=== PATIENT | male | born 1955 | race Caucasian/White ===

== ENCOUNTER 2017-05-22 11:08 | Day surgery (SDC) | payer OTHER, SELFPAY | END 2017-05-22 12:16 | disposition home or self-care (01) | PROVIDERS: Family Provider Family Medicine; Visit Provider Nurse Anesthetist, Certified Registered | DX: M51.16 Intervertebral disc disorders with radiculopathy, lumbar region (principal); M47.896 Other spondylosis, lumbar region | CPT/HCPCS: 62323; J1040 ==

== ENCOUNTER → 2017-06-25 15:45 | Outpatient (POV) | payer OTHER, SELFPAY | PROVIDERS: Family Provider Family Medicine; PCP Family Medicine; Visit Provider Dermatology | DX: Z00.00 Encounter for general adult medical examination without abnormal findings (principal) ==

== ENCOUNTER → 2018-02-23 15:40 | Outpatient (POV) | payer OTHER, SELFPAY | PROVIDERS: Family Provider Family Medicine; PCP Family Medicine; Visit Provider Dermatology | DX: Z00.00 Encounter for general adult medical examination without abnormal findings (principal) ==

== ENCOUNTER → 2018-03-23 15:28 | Outpatient (POV) | payer OTHER, SELFPAY | PROVIDERS: Visit Provider Dermatology | DX: Z00.00 Encounter for general adult medical examination without abnormal findings (principal) ==

== ENCOUNTER → 2018-05-11 15:15 | Outpatient (POV) | payer OTHER, SELFPAY | PROVIDERS: Visit Provider Dermatology | DX: Z00.00 Encounter for general adult medical examination without abnormal findings (principal) ==

== ENCOUNTER → 2018-09-07 15:36 | Outpatient (POV) | payer OTHER, SELFPAY | PROVIDERS: Visit Provider Dermatology | DX: Z00.00 Encounter for general adult medical examination without abnormal findings (principal) ==

== ENCOUNTER → 2019-05-09 15:38 | Outpatient (CLI) | payer BC, SELFPAY ==
--- NOTE | 2019-05-09 15:43 | XR_ITS ---
PROCEDURE: XR FOOT WT BEARING RT 3V CLINICAL INDICATION: pain COMPARISON: FTR3 FOOT-RT-3 VIEWS from 08/22/2013 FTL3 FOOT-LT-3 VIEWS from 10/05/2015 FINDINGS: There are severe osteoarthritic changes of the 1st metatarsophalangeal joint with loss of joint space, osteophyte formation, and osteosclerosis. Prominent bony hypertrophy is present . no lytic or blastic change. Other findings:None. IMPRESSION: Severe osteoarthritis with bony hypertrophy 1st metatarsophalangeal joint. These findings are slightly worse compared to 08/22/2013 Dictated by: Remy Valiente MD 05/09/2019 16:52 Electronically signed by Remy Valiente MD in [place] 05/09/2019 16:52
--- NOTE | 2019-05-09 15:43 | XR_ITS ---
PROCEDURE: XR FOOT WT BEARING LT 3V CLINICAL INDICATION: pain COMPARISON: FTR3 FOOT-RT-3 VIEWS from 08/22/2013 FTL3 FOOT-LT-3 VIEWS from 10/05/2015 FINDINGS: No fracture or dislocation. No lytic or blastic change. There is normal mineralization. Mild osteoarthritic changes are present at the 1st metatarsophalangeal joint with bony hypertrophy. There is a small defect in the distal and medial aspect at the head of the 1st metatarsal proximal and medial aspect of the proximal phalanx of the great toe similar to the previous exam possibly due to sequela from gout. No other significant anomalies are evident. Other findings:None. IMPRESSION: Osteoarthritis 1st MTP joint with defects at the distal aspect of the 1st metatarsal in the proximal aspect of the proximal phalanx of the great toe which could be due to gout. Overall not significantly changed Dictated by: Remy Valiente MD 05/09/2019 16:54 Electronically signed by Remy Valiente MD in [place] 05/09/2019 16:54
== END ==
PROVIDERS: PCP Family Medicine; Visit Provider Podiatrist
DX: M79.672 Pain in left foot (principal); M79.671 Pain in right foot
CPT/HCPCS: 73630

== ENCOUNTER → 2019-05-23 09:53 | Outpatient (POV) | payer BC, SELFPAY ==
--- NOTE | 2019-05-23 10:34 | HMH.PAINSOAP ---
[facility] Pain Management SOAP Note Subjective:: Patient is a pleasant 63-year-old white male who presents today for complaints of low back pain with radiation into his right leg. Patient says that he has been treated in our clinic in the past for low back pain with lumbar radicular symptoms. He says he did undergo a her epidural steroid injection for which he got immediate relief 100%. He does say that he recently had increased pain in his low back with radiation into his right leg. Patient says it was new onset causing severe pain to the point that he had to go to the emergency room. He says he was given 2 different injections for which he did not get any relief, but instead, became dizzy and lightheaded. Patient says that he was also given muscle relaxers which were not helping in his pain. He rates his pain a 10 out of 10 today. He is very tearful. Patient says that he takes gabapentin 100 mg 1 tablet p.o. 3 times daily. He says he has been taking the medication together in the a.m. He says it is giving him about 30% relief. He says he feels like the pain is causing him to have numbness and tingling in his right leg. He did undergo a CT scan in the emergency room for which he was told that he has a pinched nerve in the low back . He is also taking Macrobid and Levaquin at this time for a urinary tract infection. He self caths and has chronic renal insufficiency. Patient is unable to take anti-inflammatories due to his renal function. His GFR is less than 60%. He does continue with a home stretching program. Review of Systems General: No recent weight changes, no fever, no sleep disturbances Respiratory: No cough, no shortness of air, no recurring pulmonary infections Cardiovascular/peripheral vascular: No chest pain, no palpitations, no edema, no shortness of breath Gastrointestinal: No new onset incontinence, normal bowel movements reported Genitourinary: No new onset incontinence Musculoskeletal: Low back pain, right leg pain Psychiatric: Normal mood/affect Neurological: [Denies weakness in extremities], [denies balance issues] Objective:: Physical exam General: Alert and oriented x3, no acute distress, pleasant and cooperative, [on room air] Lungs: Respirations even and unlabored, symmetrical chest expansion Eyes: PERRL Musculoskeletal: Flexion and extension of lumbar spine somewhat guarded secondary to pain, deep tendon reflexes normal, strength in upper and lower extremities [5/5], [abnormal gait noted] Neurological: Speech clear, 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 We will order the patient gabapentin 300 mg 1 tablet p.o. twice daily. We will also order the patient a month of tramadol 50 mg 1 tablet p.o. twice daily. Patient says he has not had any type of MRI of his low spine. We will schedule him for an MRI of the lumbar spine and see him back to discuss the plan of care. He will continue with a home stretching program, ice and heat therapies, and his oral medications. Patient has been instructed to contact the clinic if he has any concerns before his next appointment. Dr. Santana has reviewed this note and agrees with this plan of care. This note was dictated using voice recognition software and make contain errors or omissions. Patient has been prescribed a controlled substance after being counseled on the medication, medication safety, and possible side effects. TAMIR report has been obtained and reviewed prior to prescription and found to be appropriate. Opioid contract was reviewed and signed by the patient, and that they have agreed to all of the terms set forth by our compliance program. [facility] History I have reviewed
[2019-05-23 11:01] VITALS: BP 151/98; PULSE 88; RESP 18; O2SAT 99; BMI 27.1
== END ==
PROVIDERS: PCP Family Medicine; Visit Provider Clinical Nurse Specialist Family Health
DX: M51.16 Intervertebral disc disorders with radiculopathy, lumbar region (principal); M47.816 Spondylosis without myelopathy or radiculopathy, lumbar region
CPT/HCPCS: 99212

== ENCOUNTER → 2019-05-30 12:52 | Outpatient (POV) | payer BC, SELFPAY ==
--- NOTE | 2019-05-30 13:16 | P.CONS_ITS ---
[facility] Pain Management SOAP Note Subjective:: Patient is a pleasant 63-year-old white male who presents today for follow-up after he was started on some medications last week. Patient is in extreme discomfort. He has low back pain with right leg involvement. Patient was on antibiotics at his last visit. Patient does have a CT scan showing possible nerve impingement at the L4-L5 L5-S1 levels on the right side. Patient and I discussed a plan of care. Patient is now off of his antibiotics. He is not on any anticoagulation therapy. Patient did not respond well to gabapentin. We will put him on prednisone 20 mg 1 p.o. twice daily and Lyrica 75 mg 1 p.o. twice daily. We will get a new MRI he may need a neurosurgical consultation. Patient rates his pain a 7 out of 10. Patient has radiation of his pain all the way to his toes. ROS General: no recent weight change, no fever, no sleep disturbances Respiratory: no cough, no shortness of air, no recurring pulmonary infections Cardiovascular/Peripheral Vascular: No chest pain, No palpitations, no edema, no shortness of breath. Gastrointestinal: no new onset incontinence, normal bowel movements reported Genitourinary: no new onset incontinence Musculoskeletal: Back pain, leg pain Psychiatric: normal mood/ affect Neurological: [denies new onset weakness in extremities], [denies new onset balance issues] Objective:: Physical Exam General: Alert and oriented x3, no acute distress, pleasant and cooperative, [on room air] Lungs: Resps E/U, Symmetrical chest expansion, Eyes: PERRL Musculoskeletal: Flexion and extension of lumbar spine somewhat guarded secondary to pain, deep tendon reflexes normal, strength in upper and lower extremities [5/5], [abnormal gait noted] Neurological: speech clear, 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 Plan:: I will put the patient on prednisone 20 mg 1 p.o. twice daily for 5 days we will also start on Lyrica 75 mg 1 p.o. twice daily. We will move forward with his MRI for potential neurosurgical consultation we will also set him up for right transforaminal epidural steroid injection to get him some relief. Patient's been instructed to call the office if he has any issues prior to his next appointment. He is now off antibiotics. Dr. Santana has reviewed this note and agrees with this plan of care. This note was dictated using voice recognition software and may contain errors or omissions [facility] History I have reviewed the patient's past medical history: Yes Medical History: Reports:: Hyperlipidemia, Hypertension, Renal Disease *Have you ever received a pneumonia vaccine?: Yes *Have you received a flu vaccine this season?: Yes Other Medical History: Reports: Arthritis Other Surgeries: Yes: Hernia Repair, Other - *Social History Smoking Status: Current every day smoker Alcohol Intake: never *Occupational Status:: other Housing: house *Travel in the last 8 weeks: None Family Hx:: No significant family history
[2019-05-30 13:50] VITALS: BP 125/91; PULSE 121; RESP 18; O2SAT 99; BMI 26.8
== END ==
PROVIDERS: PCP Family Medicine; Visit Provider Clinical Nurse Specialist Family Health
DX: M51.26 Other intervertebral disc displacement, lumbar region (principal); M51.36 Other intervertebral disc degeneration, lumbar region
CPT/HCPCS: 99212

== ENCOUNTER → 2019-06-06 07:47 | Outpatient (CLI) | payer BC, SELFPAY | PROVIDERS: PCP Family Medicine; Visit Provider Clinical Nurse Specialist Family Health | DX: M54.5 Low back pain (principal) ==

== ENCOUNTER 2019-08-16 09:00 | Outpatient (RCR) | payer BC, SELFPAY | END 2019-08-16 09:05 | disposition home or self-care (01) | LOC: PT 09:00 | PROVIDERS: PCP Family Medicine; Visit Provider Physician Assistant | DX: M51.26 Other intervertebral disc displacement, lumbar region (principal) | CPT/HCPCS: 97010; 97014; 97110; 97163; G0283 ==

== ENCOUNTER → 2020-07-13 10:39 | Outpatient (CLI) | payer BC, SELFPAY ==
[2020-07-13 10:44] LABS: Microscopic, Urine URINE MICROSCOPIC (MICROSCOPIC)
[2020-07-13 11:17] LABS: Creatinine,Urine Random 43 mg/dL (Not Estab.)
[2020-07-13 11:19] LABS: Basophils # 0.1 K/mm3 (0-0.2); Basophils % 0.6 % (0.1-2.0); Eosinophils # 0.2 K/mm3 (0.0-0.4); Eosinophils % 2.2 % (0.1-12.0); Lymphocytes # 1.5 K/mm3 (0.7-4.5); Lymphocytes % 16.4 % (10-50); Mean Corpuscular HGB Conc 33.4 g/dL (31.8-35.4); Mean Corpuscular Hemoglobin 31.8 pg (27.0-31.2); Mean Corpuscular Volume 95.2 fl (80-94); Mean Platelet Volume 7.7 fl (7.4-10.4); Monocytes # 0.5 K/mm3 (0.1-1.0); Monocytes % 5.6 % (1.7-9.3); Neutrophils # 7.1 K/mm3 (1.8-7.8); Neutrophils % 75.3 % (37.0-80.0); Platelet Count 161 K/mm3 (142-424); Red Blood Count 5.05 M/mm3 (4.60-6.20); Red Cell Distribution Width 13.5 % (11.5-17.5); White Blood Count 9.4 K/mm3 (4.8-10.8)
[2020-07-13 12:41] LABS: Appearance,Urine CLEAR (Clear); Bilirubin,Urine Negative (Negative); Blood, Urine Negative (Negative); Color,Urine STRAW (Yellow); Glucose,Urine (UA) Negative (Negative); Ketones,Urine Negative (Negative); Leukocyte Esterase,Urine Negative (Negative); Nitrate,Urine Negative (Negative); Protein,Urine Negative (Negative); Specific Gravity, Urine 1.015 (1.005-1.030); Urobilinogen,Urine 0.2 EU/dl (0.2)
[2020-07-13 13:35] LABS: Chloride 103 mmol/L (98-107)
[2020-07-13 13:36] LABS: Albumin Level 4.6 g/dl (3.5-5.0); Potassium 4.7 mmoL/L (3.5-5.1); Sodium 139 mmol/L (136-145)
[2020-07-13 13:38] LABS: Blood Urea Nitrogen 38 mg/dl (9-20); Estimated Glomerular Filt Rate 44 ml/min (>60); GFR (African American) 53 ML/MIN (>60)
[2020-07-13 13:39] LABS: Anion Gap 12.7 mEq/L (5-15); Calcium 10.4 mg/dl (8.4-10.2); Carbon Dioxide 28 mmol/L (22.0-30.0); Glucose 108 mg/dl (74-100); Phosphorous 4.3 mg/dl (2.5-4.5)
[2020-07-13 13:49] LABS: Intact Parathyroid Hormone 20.7 pg/mL (7.5-53.5)
[2020-07-13 13:54] LABS: 25-OH Vitamin D, Total 44.5 ng/mL (30-100)
[2020-07-13 14:13] LABS: Bacteria,Urine 1+ /lpf; RBC,Urine Occasional #/hpf (0-3); Squamous Epithelial Cell,Urine Occasional #/hpf (0-5)
== END ==
PROVIDERS: Visit Provider Internal Medicine Nephrology
DX: N18.30 Chronic kidney disease, stage 3 unspecified (principal)
CPT/HCPCS: 36415; 80069; 81001; 82306; 82570; 83970; 84155; 85025

== ENCOUNTER → 2020-07-31 15:54 | Outpatient (POV) | payer BC, SELFPAY | PROVIDERS: Visit Provider Dermatology | DX: Z00.00 Encounter for general adult medical examination without abnormal findings (principal) ==

== ENCOUNTER → 2021-05-22 10:14 | Outpatient (CLI) | payer BC, SELFPAY | PROVIDERS: PCP Family Medicine; Visit Provider Urology | DX: Z01.812 Encounter for preprocedural laboratory examination (principal); Z11.52 Encounter for screening for COVID-19; R97.20 Elevated prostate specific antigen [PSA] | CPT/HCPCS: C9803; U0003; U0005 ==

== ENCOUNTER 2021-05-24 07:19 | Day surgery (SDC) | payer BC, SELFPAY ==
[2021-05-21 10:31] VITALS: BMI 27.7
[2021-05-24 07:34] VITALS: BP 137/81; PULSE 79; RESP 18; TEMP 36.4; O2SAT 97
[2021-05-24 09:50] VITALS: BP 116/67; PULSE 75; RESP 16; TEMP 36.6; O2SAT 96
--- NOTE | 2021-05-24 09:53 | HMH.ANESCL ---
[facility] Anesthesia Checklist - Structural Data Admitted From: Home Planned Operative Procedure/s: prostate bx Consent for Planned Operative Procedure(s) Verified: Yes - Additional verifications Anesthesia Reactions: No Hx Blood Transfusions: No Blood Transfusion Reaction: No - Airway Assessment C-Spine Mobility Assessed: Yes TMJ Mobility Assessed: Yes Dentition: Edentulous - Neurological Assessment Level of Consciousness: Awake, Alert, Appropriate - Anesthesia Plan Anesthesia Risk discussed: Yes Anesthesia Plan: Verified ASA Class: II Anesthesia Type: MAC [facility] History I have reviewed the patient's past medical history: Yes Medical History: Reports:: Hyperlipidemia, Hypertension, Renal Disease Denies:: Cancer, Diabetes Mellitus Type 1, Diabetes Mellitus Type 2, Internal Pacemaker, MRSA, Seizures *Have you ever received a pneumonia vaccine?: No *Have you received a flu vaccine this season?: Yes Other Medical History: Reports: Arthritis. Denies: Blood Transfusion Reaction Anesthesia experience/problems:: none Other Surgeries: Yes: Hernia Repair, Other. No: Pacemaker Amputation: No - *Social History Smoking Status: Current every day smoker Alcohol Intake: current Alcohol Intake Frequency:: a few times a month Substance Use Type: denies use *Occupational Status:: employed Housing: house Household Members: spouse *Travel in the last 8 weeks: None Family Hx:: No significant family history
[2021-05-24 10:05] VITALS: BP 120/70; PULSE 76; RESP 16; O2SAT 95
[2021-05-24 10:20] VITALS: BP 142/77; PULSE 74; RESP 18; TEMP 36.4; O2SAT 96
--- NOTE | 2021-05-24 10:20 | P.OP_ITS ---
Date of procedure: 05/24/21 Pre-op Diagnosis:: Elevated PSA Post-op Diagnosis:: Elevated PSA Procedure performed:: Prostate biopsy with transrectal ultrasound guidance Surgeon:: Marco A Rahman MD [employer] OPERATOR:: Lui Shelton Anesthesia: MAC Estimated blood loss (mL): 0 Clinical Note:: Patient is a 65-year-old white male with history of neurogenic bladder who self caths 3 times a day was also found to have an elevated PSA. Recent PSA was 7.7. PSA a year ago was 6.4. Prostate examination is benign to digital rectal examination. Patient wishes to proceed with prostate biopsy to rule out prostate cancer. Operative findings:: Prostate gland was 53.7 cm? in size. There were hypoechoic lesions in the central zone bilaterally. 12 biopsies were taken including through the hypoechoic areas. Operative note:: Patient taken to the operating room after informed consent was obtained. On the stretcher he was placed into the left lateral decubitus position and monitored anesthesia care administered. After adequate analgesia the transrectal ultrasound probe was placed into the rectum and the prostate was easily visualized. The prostate was measured at 53.7 cm?. Ultrasound examination also revealed bilateral hypoechoic areas in the central zone. No hyperechoic areas or calcifications were noted. Local anesthetic was placed into each neurovascular bundle and 12 biopsies were then taken in a systematic fashion including through the hypoechoic areas. Probe removed and patient tolerated the procedure well. Was discharged to the recovery room in stable condition. Condition: stable Disposition: PACU Specimens:: Prostate biopsy x12 Complications:: None
--- NOTE | 2021-05-24 10:40 | SUR.OPER ---
0950- pt kept in PACU to discharge.
== END 2021-05-24 10:20 | disposition home or self-care (01) ==
LOC: OR 07:20
PROVIDERS: PCP Family Medicine; Visit Provider Urology
PROC: (CPT 55700; principal; 2021-05-24 09:00)
DX: R97.20 Elevated prostate specific antigen [PSA] (principal); E78.5 Hyperlipidemia, unspecified; I10 Essential (primary) hypertension; N31.9 Neuromuscular dysfunction of bladder, unspecified; N48.6 Induration penis plastica; M19.90 Unspecified osteoarthritis, unspecified site; Z72.0 Tobacco use; Z79.82 Long term (current) use of aspirin; Z79.899 Other long term (current) drug therapy
CPT/HCPCS: 55700; 76872

== ENCOUNTER → 2021-10-31 07:13 | Outpatient (CLI) | payer BC, SELFPAY ==
[2021-10-31 07:17] LABS: Microscopic, Urine URINE MICROSCOPIC (MICROSCOPIC)
[2021-10-31 08:04] LABS: Basophils # 0.1 K/mm3 (0-0.2); Basophils % 1.1 % (0.1-2.0); Eosinophils # 0.4 K/mm3 (0.0-0.4); Eosinophils % 5.6 % (0.1-12.0); Hematocrit 46.3 % (42.0-52.0); Hemoglobin 15.6 g/dL (14.1-18.0); Lymphocytes # 1.6 K/mm3 (0.7-4.5); Lymphocytes % 24.7 % (10-50); Mean Corpuscular HGB Conc 33.7 g/dL (31.8-35.4); Mean Corpuscular Hemoglobin 31.9 pg (27.0-31.2); Mean Corpuscular Volume 94.8 fl (80-94); Mean Platelet Volume 9.1 fl (7.4-10.4); Monocytes # 0.6 K/mm3 (0.1-1.0); Monocytes % 8.5 % (1.7-9.3); Neutrophils # 3.9 K/mm3 (1.8-7.8); Neutrophils % 60.2 % (37.0-80.0); Platelet Count 152 K/mm3 (142-424); Red Blood Count 4.89 M/mm3 (4.60-6.20); Red Cell Distribution Width 13.5 % (11.5-17.5); White Blood Count 6.4 K/mm3 (4.8-10.8)
[2021-10-31 09:38] LABS: Appearance,Urine CLEAR (Clear); Bilirubin,Urine Negative (Negative); Blood, Urine Negative (Negative); Color,Urine YELLOW (Yellow); Glucose,Urine (UA) Negative (Negative); Ketones,Urine Negative (Negative); Leukocyte Esterase,Urine Negative (Negative); Nitrate,Urine Negative (Negative); Protein,Urine Negative (Negative); Urobilinogen,Urine 0.2 EU/dl (0.2)
[2021-10-31 09:55] LABS: Bacteria,Urine Trace /lpf; Squamous Epithelial Cell,Urine Occasional #/hpf (0-5); WBC,Urine Occasional #/hpf (0-3)
[2021-10-31 10:02] LABS: Creatinine,Urine Random 33 mg/dL (Not Estab.)
[2021-10-31 10:16] LABS: Albumin Level 3.9 g/dl (3.5-5.0); Anion Gap 12.4 mEq/L (5-15); Blood Urea Nitrogen 27 mg/dl (9-20); Calcium 8.9 mg/dl (8.4-10.2); Carbon Dioxide 27 mmol/L (22.0-30.0); Chloride 106 mmol/L (98-107); Estimated Glomerular Filt Rate 56 ml/min (>60); GFR (African American) 67 ML/MIN (>60); Glucose 84 mg/dl (74-100); Phosphorous 3.7 mg/dl (2.5-4.5); Potassium 4.4 mmoL/L (3.5-5.1); Sodium 141 mmol/L (136-145)
[2021-10-31 10:26] LABS: Intact Parathyroid Hormone 68.9 pg/mL (7.5-53.5)
[2021-10-31 10:31] LABS: 25-OH Vitamin D, Total 47.9 ng/mL (30-100)
== END ==
PROVIDERS: PCP Family Medicine; Visit Provider Student in an Organized Health Care Education/Training Program
DX: N18.30 Chronic kidney disease, stage 3 unspecified (principal)
CPT/HCPCS: 36415; 80069; 81001; 82306; 82570; 83970; 84155; 85025

== ENCOUNTER → 2021-12-24 16:00 | Outpatient (POV) | payer BC, SELFPAY | PROVIDERS: Visit Provider Dermatology | DX: Z00.00 Encounter for general adult medical examination without abnormal findings (principal) ==

== ENCOUNTER → 2022-03-07 12:55 | Outpatient (CLI) | payer BC, SELFPAY ==
--- NOTE | 2022-03-07 13:00 | XR_ITS ---
FINAL REPORT CLINICAL HISTORY: R Foot pain..dropped something onto big toe yesterday COMPARISON: April 2019 FINDINGS: 3 views of the right foot were obtained. There is no acute fracture or dislocation. There is severe degenerative change of the 1st MTP joint, progressed from prior. There is a 14 mm loose body in this region. IMPRESSION: No acute fracture. Reviewed, Interpreted and Dictated by Camilo Mahmood III, MD Transcribed by Serafin Max Authenticated and [facility]
== END ==
PROVIDERS: PCP Family Medicine; Visit Provider Family Medicine
DX: M79.671 Pain in right foot (principal)
CPT/HCPCS: 73630

== ENCOUNTER 2022-04-04 09:43 | Emergency (ER) | payer BC, OTHER, SELFPAY ==
--- NOTE | 2022-04-04 09:48 | XR_ITS ---
FINAL REPORT CLINICAL HISTORY: SOMETHING FELL ON KNEE x 2 weeks ago FINDINGS: 3 views of the right knee were obtained. There is no acute fracture or dislocation. The joint spaces are intact. There is no soft tissue abnormality. IMPRESSION: No acute process. Reviewed, Interpreted and Dictated by Severino Leyva MD Transcribed by Serafin Max Authenticated and [facility]
[2022-04-04 10:30] VITALS: BP 144/84; PULSE 77; RESP 18; TEMP 36.7; O2SAT 99; BMI 32.3
--- NOTE | 2022-04-04 11:05 | EXP.UTC ---
Discharge Plan Disposition Patient Disposition: Home, Self-Care Condition: Good Prescriptions Prescriptions: No Action allopurinol 100 mg tablet 100 mg PO DAILY Qty: 90 3RF omeprazole 20 mg capsule,delayed release(DR/EC) 20 mg PO DAILY Qty: 90 3RF atorvastatin 10 mg tablet See Rx Instructions .ROUTE .COMPLEX Qty: 90 3RF Dose Instruction: TAKE ONE TABLET BY MOUTH ONCE A DAY Rx Instructions: TAKE ONE TABLET BY MOUTH ONCE A DAY naproxen 500 mg tablet 500 mg PO BID Qty: 30 0RF prednisone 20 mg tablet 20 mg PO BID 5 Days Qty: 10 0RF lisinopril 2.5 MG tablet 2.5 mg PO DAILY Referrals Follow up/Referrals: Roscoe Julian JR, MD [Physician] - See instructions David Bell DO [Staff Physician] - See instructions Nikolas Villegas MD [Primary Care Provider] - See instructions Activity Restrictions/Add. Instructions Additional Instructions/Restrictions: *weight bearing as tolerated *RICE, Rest the extremity, Ice 15-20 minutes 3-4 times daily, Compress- wear the christiano wrap as discussed as much as possible to help reduce swelling and pain, Elevate the extremity when at rest *Christiano wrap is for support and help control swelling, use it except in the shower. Be sure that is not to tight but not to loose either *Elevate when resting? *Ibuprofen 600-800mg every 6-8 hours as needed for pain an inflammation if your Doctor has said you can take it. If need something more can take Tylenol in between doses of Ibuprofen to help Immediately follow up with your family doctor for new or worsening of symptoms, or no noticeable improvement over the next 3-5 days Clinical Impressions Clinical Impression: Contusion of knee Instructions Patient Instructions: How To Perform RICE (Rest, Ice, Compress, Elevate), How to Apply an Christiano Wrap Discharge ED Provider: Brunilda Del Cid [facility] HPI General Stated complaint: [id number], right knee pain Mode of Arrival: Ambulatory Source of Information: Patient Limitations: No Limitations Time Seen by Provider: 04/04/22 11:15 Description of Symptoms (Recalled from Triage Doc. by RN): PATIENT C/O RIGHT KNEE PAIN AND SWELLING X 3 WEEKS AFTER HITTING IT ON TOP OF A CRATE HEENT Symptoms (Recalled from RN notes): No Resp Symptoms (Recalled from RN notes): No Skin Symptoms (Recalled from RN notes): No MS Symptoms (Recalled from RN notes): Yes Functional Status (Recalled from RN notes): WNL History of Present Illness Provider Complaint: Patient states about 3 weeks ago a crate fell at work and hit him in the right knee States that ever since he has been having swelling and pain ever since States that swelling worse when he is on his leg at work so today he came in to get it checked out Related Data Home Medications Medication Instructions Recorded Confirmed lisinopril 2.5 mg tablet 2.5 mg PO DAILY bp 05/21/21 03/07/22 Previous Rx's Medication Instructions Recorded allopurinol 100 mg tablet 100 mg PO DAILY GOUT #90 tabs 09/20/21 atorvastatin 10 mg tablet See Rx Instructions .Route 09/20/21 .COMPLEX #90 tabs omeprazole 20 mg capsule,delayed 20 mg PO DAILY ACID REFLUX #90 caps 09/20/21 release naproxen 500 mg tablet 500 mg PO BID #30 tabs 03/07/22 prednisone 20 mg tablet 20 mg PO BID 5 days #10 tabs 03/07/22 Allergies Allergy/AdvReac Type Severity Reaction Status Date / Time CONTRAST DYES AdvReac Unknown NOT Uncoded 03/07/22 11:40 ALLERGIC, WAS TOLD HARMFUL TO KIDNEYS Worker's Comp Is this a Worker's Comp case?: No PFSH PFSH Medical History (Updated 04/04/22 @ 11:15 by Brunilda Del Cid APRN) BPH (benign prostatic hyperplasia) Hyperlipidemia Hypertension Urinary tract infection Surgical History (Updated 04/04/22 @ 10:44 by Luh Mandujano RN) History of cardiac cath Social History (Updated 04/04/22 @ 10:45 by Luh Mandujano, RN) Smoking Status: Current every day smoker second hand exposure: No alcohol int
[2022-04-04 11:27] VITALS: BP 144/84; PULSE 77; RESP 18; TEMP 36.7; O2SAT 99
== END 2022-04-04 11:30 | disposition home or self-care (01) ==
PROVIDERS: Emergency Provider Nurse Practitioner; PCP Family Medicine
DX: S80.00XA Contusion of unspecified knee, initial encounter (principal); W22.8XXA Striking against or struck by other objects, initial encounter; Y99.0 Civilian activity done for income or pay
CPT/HCPCS: 73562; 99212; G0463

== ENCOUNTER → 2022-06-14 09:40 | Outpatient (CLI) | payer OTHER, SELFPAY ==
--- NOTE | 2022-06-14 09:41 | MR_ITS ---
PROCEDURE INFORMATION: Exam: MR Right Lower Extremity Joint Without Contrast, Knee Exam date and time: 06/14/2022 9:43 AM Age: 66 years old Clinical indication: Pain; Knee; Right; Additional info: Right knee injury. Injury at work February 2022. Object hit medial knee pain TECHNIQUE: Imaging protocol: Magnetic resonance imaging of the Right lower extremity joint without contrast. Exam focused on the knee. COMPARISON: CR XR KNEE RT 3V 04/04/2022 9:45 AM FINDINGS: Bones and cartilage: No fracture or internal derangement. Minimal osteoarthritis. Tiny subchondral cysts anterior proximal tibia. Joint spaces: No joint effusion. Fat pads of knee: Limited stranding in fluid in Hoffa's fat pad which could represent contusion or impingement of the fat pad. Medial meniscus: Unremarkable. No tear. Lateral meniscus: Unremarkable. No tear. Anterior cruciate ligament: Unremarkable. No tear. Posterior cruciate ligament: Unremarkable. No tear. Medial capsule and supporting structures: Unremarkable. No tear. Lateral capsule and supporting structures: Unremarkable. No tear. Extensor mechanism of knee: Unremarkable. No tear. Muscles: Unremarkable. Soft tissues: Unremarkable. IMPRESSION: 1. No fracture or internal derangement. 2. Minimal osteoarthritis. 3. Limited stranding in fluid in Hoffa's fat pad which could represent contusion or impingement of the fat pad.
== END ==
LOC: RAD 09:41
PROVIDERS: PCP Orthopaedic Surgery; Visit Provider Orthopaedic Surgery
DX: M25.561 Pain in right knee (principal); S80.01XA Contusion of right knee, initial encounter
CPT/HCPCS: 73721

== ENCOUNTER → 2022-08-22 19:08 | Outpatient (CLI) | payer BC, SELFPAY | PROVIDERS: PCP Family Medicine; Visit Provider Family Medicine | DX: N39.0 Urinary tract infection, site not specified (principal) | CPT/HCPCS: 87086 ==

== ENCOUNTER → 2022-11-29 11:06 | Outpatient (CLI) | payer BC, SELFPAY ==
[2022-11-29 11:12] LABS: Microscopic, Urine URINE MICROSCOPIC (MICROSCOPIC)
[2022-11-29 11:25] LABS: Appearance,Urine CLEAR (Clear); Bilirubin,Urine Negative (Negative); Blood, Urine Negative (Negative); Color,Urine YELLOW (Yellow); Glucose,Urine (UA) Negative (Negative); Ketones,Urine Negative (Negative); Leukocyte Esterase,Urine Negative (Negative); Nitrate,Urine Negative (Negative); PH,Urine 5.5 (5.0-8.5); Protein,Urine Negative (Negative); Specific Gravity, Urine 1.015 (1.005-1.030); Urobilinogen,Urine 0.2 EU/dl (0.2)
[2022-11-29 11:29] LABS: Basophils % 0.4 % (0.1-2.0); Eosinophils # 0.3 K/mm3 (0.0-0.4); Eosinophils % 3.8 % (0.1-12.0); Hematocrit 48.7 % (42.0-52.0); Hemoglobin 16.2 g/dL (14.1-18.0); Lymphocytes # 1.4 K/mm3 (0.7-4.5); Mean Corpuscular HGB Conc 33.2 g/dL (31.8-35.4); Mean Corpuscular Hemoglobin 30.1 pg (27.0-31.2); Mean Corpuscular Volume 90.5 fl (80-94); Mean Platelet Volume 8.7 fl (7.4-10.4); Monocytes # 0.6 K/mm3 (0.1-1.0); Monocytes % 6.7 % (1.7-9.3); Neutrophils # 6.5 K/mm3 (1.8-7.8); Neutrophils % 73.2 % (37.0-80.0); Platelet Count 151 K/mm3 (142-424); Red Blood Count 5.38 M/mm3 (4.60-6.20); Red Cell Distribution Width 13.5 % (11.5-17.5); White Blood Count 8.8 K/mm3 (4.8-10.8)
[2022-11-29 12:30] LABS: Albumin Level 4.4 g/dl (3.5-5.0); Anion Gap 13.4 mEq/L (5-15); Blood Urea Nitrogen 27 mg/dl (9-20); Calcium 8.9 mg/dl (8.4-10.2); Carbon Dioxide 23 mmol/L (22.0-30.0); Chloride 108 mmol/L (98-107); Estimated Glomerular Filt Rate 51 ml/min (>60); GFR (African American) 62 ML/MIN (>60); Glucose 106 mg/dl (74-100); Phosphorous 3.2 mg/dl (2.5-4.5); Potassium 4.4 mmoL/L (3.5-5.1); Sodium 140 mmol/L (136-145)
[2022-11-29 13:48] LABS: Creatinine,Urine Random 57 mg/dL (Not Estab.)
== END ==
PROVIDERS: PCP Family Medicine; Visit Provider Student in an Organized Health Care Education/Training Program
DX: N18.30 Chronic kidney disease, stage 3 unspecified (principal)
CPT/HCPCS: 36415; 80069; 81001; 82570; 84155; 85025

== ENCOUNTER 2022-12-01 07:14 | Inpatient (IN) | payer BC, SELFPAY ==
[2022-12-01] VITALS (26 sets, daily range): BP systolic 89–140; BP diastolic 47–96; PULSE 60–111; RESP 16–24; TEMP 36.6–37.2; O2SAT 91–98; BMI 27.7; BMI 28.6
--- NOTE | 2022-12-01 07:14 | ECG_ITS ---
APPROVED REPORT Exam: Resting ECG HR:109 bpm ECG Measurements Heart Rate 109 AXES NC 153 P 29 QRSd 146 QRS 55 QT 371 T 72 QTc 435 Conclusion SINUS TACHYCARDIA LEFT BUNDLE BRANCH BLOCK [120+ ms QRS DURATION, 80+ ms Q/S IN V1/V2, 85+ ms R IN I/aVL/V5/V6] ABNORMAL ECG UNCONFIRMED REPORT Electronically signed by : Romel Evans MD 12/01/2022 13:59:35
--- NOTE | 2022-12-01 07:19 | PC.NURSE ---
DR BAXTER AT BEDSIDE
--- NOTE | 2022-12-01 07:21 | PC.NURSE ---
AD FLORES speaking with Dr. Fagan.
--- NOTE | 2022-12-01 07:24 | XR_ITS ---
FINAL REPORT CLINICAL HISTORY: CHEST PRESSURE FINDINGS: SINGLE VIEW CHEST The heart size is normal. The mediastinum is normal. The lungs are clear. There is no pneumothorax. IMPRESSION: No acute cardiopulmonary process. Reviewed, Interpreted and Dictated by Camilo Mahmood III, MD Transcribed by Vicki Sims Authenticated and [facility]
--- NOTE | 2022-12-01 07:27 | HMH.EDCP ---
Discharge Plan Disposition Patient Disposition: Admitted Prescriptions Prescriptions: No Action omeprazole 20 mg capsule,delayed release(DR/EC) 20 mg PO DAILY Qty: 90 3RF methenamine-sodium salicylate 162-162.5 mg tablet 162 tab PO DAILY atorvastatin 10 mg tablet 10 mg PO DAILY allopurinol 100 mg tablet 100 mg PO DAILY lisinopril 2.5 mg tablet 2.5 mg PO DAILY nitrofurantoin monohyd/m-cryst [Macrobid] 100 mg capsule 100 mg PO BID Rx Instructions: must administer with a meal/food Referrals Follow up/Referrals: Provider,Referral, [Referring] - See instructions Clinical Impressions Clinical Impression: Chest pain, Complete left bundle branch block (LBBB) Discharge ED Provider: Abdias (ED)Tomer Chest Pain HPI <Tomer Calero (ED)MD - Last Filed: 12/01/22 08:36> General Chief Complaint: Chest Pain Stated Complaint: chest pain Time Seen by Provider: 12/01/22 07:20 Mode of Arrival: Ambulatory Source of Information: Patient, Significant Other and Medical Record Limitations: No Limitations Description of Symptoms (Recalled from ER Triage Doc. by RN): PT CO INTERMITTENT CHEST PRESSURE THAT STARTED ON THURSDAY. PT REPORTS OCCASIONAL SHORTNESS OF BREATH, DENIES N/V. REPORTS SINUS PRESSURE AND NOT FEELING WELL History of Present Illness HPI narrative: new onset of chest pressure over the last few days with sob MD complaint: chest pain indicative of cardiac Onset (ago): day(s) Duration: intermittent Activity at onset: during rest Pain location: left chest Severity: moderate Quality: tightness Risk Factors for CAD: Family Hx of CAD Treatments prior to or on arrival for Cardiac Chest Pain: none RHODA Score for Non-Stemi Age of Patient: 60-69 years old Heart Rate: 90-109 bpm Systolic Blood Pressure: 120-139 mmhg Serum Creatinine: 1.20-1.59 mg/dl CHF [place] Class: I-No CHF Other Risk Factors: None Non-Stemi Risk Score: 117 Risk Stratification: 109-140 = Intermediate Ri Related Data Home Medications Medication Instructions Recorded Confirmed methenamine-sodium salicylate 162 162 tab PO DAILY KIDNEY INFECTION 08/22/22 12/01/22 mg-162.5 mg tablet allopurinol 100 mg tablet 100 mg PO DAILY GOUT 12/01/22 12/01/22 atorvastatin 10 mg tablet 10 mg PO DAILY Cholesterol 12/01/22 12/01/22 lisinopril 2.5 mg tablet 2.5 mg PO DAILY High Blood Pressure 12/01/22 12/01/22 nitrofurantoin 100 mg PO BID KIDNEY INFECTION 12/01/22 12/01/22 monohydrate/macrocrystals 100 mg capsule (Macrobid) Previous Rx's Medication Instructions Recorded omeprazole 20 mg capsule,delayed 20 mg PO DAILY ACID REFLUX #90 caps 08/28/22 release Allergies Allergy/AdvReac Type Severity Reaction Status Date / Time CONTRAST DYES AdvReac Unknown NOT Uncoded 08/28/22 14:18 ALLERGIC, WAS TOLD HARMFUL TO KIDNEYS <Gene Ho MD - Last Filed: 12/01/22 09:57> RHODA Score for Non-Stemi Non-Stemi Risk Score: 117 PFSH <Tomer Calero (ED)MD - Last Filed: 12/01/22 08:36> PFS Disclaimer: The information contained in this section may have been updated after the patient was seen, as this information can be updated by other users. Medical History BPH (benign prostatic hyperplasia) Hyperlipidemia Hypertension Urinary tract infection Surgical History History of cardiac cath Family History Other No significant family history Social History Smoking Status: Former smoker second hand exposure: No alcohol intake: current substance use type: denies use current occupational status: employed Travel in the last 8 weeks: None household members: spouse housing: house current occupational exposures/hazards: No caffeine: Yes
[2022-12-01 07:32] LABS: Basophils % 0.3 % (0.1-2.0); Eosinophils # 0.6 K/mm3 (0.0-0.4); Eosinophils % 6.9 % (0.1-12.0); Hematocrit 49.7 % (42.0-52.0); Hemoglobin 16.4 g/dL (14.1-18.0); Lymphocytes # 1.5 K/mm3 (0.7-4.5); Lymphocytes % 17.2 % (10-50); Mean Corpuscular HGB Conc 33.1 g/dL (31.8-35.4); Mean Corpuscular Hemoglobin 30.4 pg (27.0-31.2); Mean Corpuscular Volume 91.7 fl (80-94); Mean Platelet Volume 8.7 fl (7.4-10.4); Monocytes # 0.8 K/mm3 (0.1-1.0); Neutrophils # 5.8 K/mm3 (1.8-7.8); Neutrophils % 66.6 % (37.0-80.0); Platelet Count 145 K/mm3 (142-424); Red Blood Count 5.42 M/mm3 (4.60-6.20); Red Cell Distribution Width 13.5 % (11.5-17.5); White Blood Count 8.6 K/mm3 (4.8-10.8)
[2022-12-01 07:35] LABS: Coronavirus 19, PCR Not Detected (NotDetected); Influenza A, PCR Not Detected (NotDetected); Influenza B, PCR Not Detected (NotDetected)
--- NOTE | 2022-12-01 07:41 | PC.NURSE ---
rad at BS for portable xray
[2022-12-01 07:45] LABS: Anion Gap 12.1 mEq/L (5-15); Blood Urea Nitrogen 24 mg/dl (9-20); Carbon Dioxide 24 mmol/L (22.0-30.0); Chloride 108 mmol/L (98-107); Creatinine Clearance Estimated 66 mL/min (50-200); Estimated Glomerular Filt Rate 47 ml/min (>60); GFR (African American) 57 ML/MIN (>60); Glucose 96 mg/dl (74-100); Potassium 4.1 mmoL/L (3.5-5.1); Sodium 140 mmol/L (136-145)
--- NOTE | 2022-12-01 07:50 | PC.NURSE ---
contacted lab for BMP results, per lab results were released at this time, troponin would be another 15 minutes. MD lee
[2022-12-01 07:57] LABS: Troponin I 0.02 ng/ml (0.00-0.034)
--- NOTE | 2022-12-01 08:05 | PC.NURSE ---
radiology states that chest x-ray is locked at this time. aware
--- NOTE | 2022-12-01 08:07 | PC.NURSE ---
rounded on pt, family at BS, call babcock in reach. Pt given pillow for comfort, states no other needs at this time, updated pt we are waiting on one lab value to come back and then will call hospitalist for admission.
--- NOTE | 2022-12-01 08:40 | CT_ITS ---
FINAL REPORT CLINICAL HISTORY: aortic dissection FINDINGS: Thin section axial CT images of the chest were obtained with contrast. 3D reformatted images were also obtained. This study was performed with techniques to keep radiation doses as low as reasonably achievable (ALARA). Individualized dose reduction techniques using automated exposure control or adjustment of mA and/or kV according to the patient''s size were employed. There is no evidence of pulmonary embolism. There is no evidence of thoracic aortic aneurysm or dissection. There is no evidence of mediastinal or hilar mass or adenopathy. There is no evidence of pulmonary mass or nodule. No localized inflammatory process is seen within the lungs. Limited images of the upper abdomen demonstrate a 1 cm cyst in the right hepatic lobe. IMPRESSION: No evidence of pulmonary embolism, aneurysm or dissection. No mass or localized inflammatory process. Reviewed, Interpreted and Dictated by Camilo Mahmood III, MD Transcribed by Genoveva Romero Authenticated and [facility]
--- NOTE | 2022-12-01 09:48 | PC.NURSE ---
AD Ho spoke with Dr. Lipscomb
--- NOTE | 2022-12-01 09:49 | PC.NURSE ---
notified care management of admission, spoke with beck
--- NOTE | 2022-12-01 10:26 | PC.NURSE ---
lab at bedside for blood draw
--- NOTE | 2022-12-01 10:36 | PC.NURSE ---
REPORT GIVEN TO ROLAND GRADY
--- NOTE | 2022-12-01 10:50 | PC.NURSE ---
Pt leaving dept for admission.
--- NOTE | 2022-12-01 10:52 | PC.NURSE ---
arrived by w/c from ED
--- NOTE | 2022-12-01 10:58 | P.CONPHA_ITS ---
Pharmacy Intervention Comments: home medication list verified using list from [facility]
--- NOTE | 2022-12-01 11:00 | EXP.CARD.CON ---
History of Present Illness History of Present Illness Consult date: 12/01/22 Requesting physician: Deshaun Lipscomb Consult reason: chest pain Chief complaint: Chest pain History of present illness: 67-year-old white male with past medical history of former smoker presented to emergency department this morning with complaints of left-sided chest pressure. Patient reports on Thursday he started feeling poorly with symptoms of generalized weakness, fatigue, dizziness, and nausea consistent with previous UTIs. Patient reports he has to self cath and it is common for him to get urinary tract infections. He started an antibiotic on Thursday and by Thursday was feeling better. This morning while at work developed left-sided chest pressure radiating into back associated with shortness of breath and near syncope. Reports had a cath 10 plus years ago that was normal. Top on presentation to ER was 0.02 and ekg was SR rate of 109 with a LBBB present. A cta of chest was negative for acute process. Patient was admitted for unstable angina for cardiology evaluation [facility] Disclaimer: The information contained in this section may have been updated after the patient was seen, as this information can be updated by other users. Medical History BPH (benign prostatic hyperplasia) Hyperlipidemia Hypertension Urinary tract infection Surgical History History of cardiac cath Family History (Updated 12/01/22 @ 11:58 by Velma Conner RN) Other Heart attack No significant family history Renal disease Stroke Social History (Updated 12/01/22 @ 11:58 by Velma Conner RN) Smoking Status: Former smoker second hand exposure: No alcohol intake: current substance use type: denies use current occupational status: employed Travel in the last 8 weeks: None household members: spouse housing: house current occupational exposures/hazards: No caffeine: Yes Review of Systems Constitutional Constitutional: Reports body ache(s), Reports lethargy and Reports weakness *Cardiovascular Cardiovascular: Reports chest pain and Reports dyspnea *Respiratory Respiratory: Reports dyspnea *Neurologic Neurologic: Reports weakness Exam Data for Last 24 hours Vital signs and Labs for Last 24 Hours: Temp Pulse Resp BP Pulse Ox O2 Del Method 98.1 F 76 18 125/80 95 Room Air 12/01/22 10:50 12/01/22 10:50 12/01/22 10:50 12/01/22 10:50 12/01/22 10:00 12/01/22 10:50 Laboratory Results - last 24 hr 12/01/22 07:17: WBC 8.6, RBC 5.42, Hgb 16.4, Hct 49.7, MCV 91.7, MCH 30.4, MCHC 33.1, RDW 13.5, Plt Count 145, MPV 8.7, Neut % (Auto) 66.6, Lymph % (Auto) 17.2, Armstrong % (Auto) 9.0, Eos % (Auto) 6.9, Baso % (Auto) 0.3, Neut # (Auto) 5.8, Lymph # (Auto) 1.5, Armstrong # (Auto) 0.8, Eos # (Auto) 0.6 H, Baso # (Auto) 0.0, Sodium 140, Potassium 4.1, Chloride 108 H, Carbon Dioxide 24, Anion Gap 12.1, BUN 24 H, Creatinine 1.50 H, Estimated Creat Clear 66, Estimated GFR 47 L, Est GFR ( Amer) 57 L, Glucose 96, Calcium 9.0, Troponin I 0.02 12/01/22 07:28: SARS-CoV-2 (PCR) Not detected, Influenza A Untype (PCR) Not detected, Influenza Type B (PCR) Not detected I & O for Last 24 hours: Intake & Output 11/28/22 11/29/22 11/30/22 12/01/22 23:59 23:59 23:59 23:59 Weight 210 lb Constitutional Constitutional: no acute distress *Routine Respiratory Exam Respiratory: Present CTA bilaterally and symmetric chest movement *Routine Cardiovascular Exam Cardiovascular: Present RRR, Normal S1 and Normal S2 *Routine Abdominal Exam Abdominal: Present soft and normoactive bowel sounds; Absent tenderness *Routine Extremities Exam Extremities: Present full ROM and normal capillary refill; Absent edema *Routine Skin Exam Skin: Present intact, dry and warm Detailed Neck Exam: Thyroids Thyroid: Absent bruit Meds Home Medications and Allergie
[2022-12-01 11:06] LABS: Troponin I 0.02 ng/ml (0.00-0.034)
--- NOTE | 2022-12-01 11:39 | IR_ITS ---
APPROVED REPORT Patient Location: Outpatient Graduate Assistant Athletic Trainer: SHEKHAR Melton RT (R) PROCEDURES Left heart catheterization Left ventriculogram Selective coronary gram INDICATION Acute coronary syndrome, Left bundle branch block, Informed consent was obtained prior to the procedure. COMPLICATIONS None Estimated Blood Loss: Less than 10 ML TECHNIQUE One percent lidocaine used to anesthetize the right anterior aspect of the wrist. The right radial artery was accessed via the Seldinger technique. A 6 Colombian sheath was placed in the right radial artery. 150 mg magnesium sulfate, 800 mcg of nitroglycerin, 1mg Lidocaine and 5000 U Heparin were given through the arterial sheath. The papa catheter was also used to perform left heart catheterization, left ventriculogram and selective coronary angiogram. At the end of the procedure the sheath was removed good hemostasis was achieved using Traclet band, patient was transferred to the postop holding area in stable condition. ANGIOGRAPHIC RESULTS The left main artery Normal The left anterior descending artery Normal The circumflex artery Nondominant normal The right coronary artery Dominant normal The CARIAS ventriculogram reveals Dilated ventricle with poor assessment of ejection fraction The left ventricular end-diastolic pressure 25 mmHg IMPRESSION Normal coronary arteries Dilated ventricle with reduced ejection fraction Elevated LVEDP PLAN 1. Echocardiogram to better evaluate ejection fraction and then treat accordingly possibly with LifeVest, BOTTOM TURNER P or possibly BOTTOM TURNER-D 2. Standard therapy for LV dysfunction Electronically signed by : Francis Fagan MD 12/01/2022 15:23:23
--- NOTE | 2022-12-01 12:08 | PC.NURSE ---
PAINTER AND GRADER CORK Note: new pt has been placed in his room comfortably. pt ambulated from wheelchair to bed upon arrival to the room.
--- NOTE | 2022-12-01 12:56 | EXP.HP ---
History of Present Illness *Admission Date: 12/01/22 *Reason for visit:: Chest pain, shortness of breath *History of present illness: Mr. Paula is a 67-year-old male who presented to the ER because of concern for chest pressure that began on Thursday. States it was in his left chest, felt pressure-like. Started feeling weak with some dizziness and fatigue. Had some nausea but no vomiting. Symptoms were similar to his previous UTIs. He has a standing order for Macrobid from his PCP. Started medication with no improvement in symptoms. Urinalysis obtained on Thursday not concerning for UTI. Symptoms got no better over the course of the weekend. This morning while at work he developed worsening left-sided pressure radiating into his back causing shortness of breath. Came to the ER for further evaluation. Reports having had a heart cath 7 to 10 years ago with normal coronaries at that time. On presentation to the ER, work-up positive for troponin of 0.02. EKG showing left bundle branch block. Concern for this being a new finding. Cardiology was consulted and the patient was admitted for further management. Taken to the Gaming Investigator for intervention and evaluation. Medicine consulted for admission for unstable angina. After arriving to the floor, patient has pleasant, stable on room air. Pain not reproducible on exam. Denies any nausea or vomiting. No headaches. [facility] Disclaimer: The information contained in this section may have been updated after the patient was seen, as this information can be updated by other users. Medical History BPH (benign prostatic hyperplasia) Hyperlipidemia Hypertension Urinary tract infection Surgical History History of cardiac cath Family History No significant family history Renal disease Heart attack Stroke Social History Smoking Status: Former smoker second hand exposure: No alcohol intake: current substance use type: denies use current occupational status: employed Travel in the last 8 weeks: None household members: spouse housing: house current occupational exposures/hazards: No caffeine: Yes Review of Systems Constitutional Constitutional: Reports weakness *Neurologic Neurologic: Reports weakness Meds Home Medications and Allergies Home Medications Medication Instructions Recorded Confirmed Type methenamine-sodium salicylate 162 162 tab PO DAILY KIDNEY INFECTION 08/22/22 12/01/22 History mg-162.5 mg tablet allopurinol 100 mg tablet 100 mg PO DAILY gout 12/01/22 12/01/22 History atorvastatin 10 mg tablet 10 mg PO DAILY Cholesterol 12/01/22 12/01/22 History lisinopril 2.5 mg tablet 2.5 mg PO DAILY High Blood Pressure 12/01/22 12/01/22 History nitrofurantoin 100 mg PO BID KIDNEY INFECTION 12/01/22 12/01/22 History monohydrate/macrocrystals 100 mg capsule (Macrobid) omeprazole 20 mg capsule,delayed 20 mg PO DAILY Acid Reflux 12/01/22 12/01/22 History release New Prescriptions to Start Prescriptions: Allergies Allergy/AdvReac Type Severity Reaction Status Date / Time Iodinated Contrast Media AdvReac Intermediate WAS TOLD Verified 12/01/22 13:31 HARMFUL TO KIDNEYS Exam Data for Last 24 hours Vital signs and Labs for Last 24 Hours: Temp Pulse Resp BP Pulse Ox O2 Del Method 98.2 F 92 H 24 125/80 95 Room Air 12/01/22 11:00 12/01/22 11:00 12/01/22 11:00 12/01/22 11:00 12/01/22 11:00 12/01/22 11:00 Laboratory Results - last 24 hr 12/01/22 07:17: WBC 8.6, RBC 5.42, Hgb 16.4, Hct 49.7, MCV 91.7, MCH 30.4, MCHC 33.1, RDW 13.5, Plt Count 145, MPV 8.7, Neut % (Auto) 66.6, Lymph % (Auto) 17.2, Craven % (Auto) 9.0, Eos % (Auto) 6.9, Baso % (Auto) 0.3, Neut # (Auto) 5.8, Lymph # (Auto) 1.5, Craven # (Auto) 0.8,
--- NOTE | 2022-12-01 14:32 | SUR.PHASEII ---
Jaqueline at bedside to perform Echo.
[2022-12-01 16:56] LABS: Troponin I 0.02 ng/ml (0.00-0.034)
[2022-12-02] VITALS (10 sets, daily range): BP systolic 109–154; BP diastolic 61–102; PULSE 69–100; RESP 18–22; TEMP 36.5–36.8; O2SAT 95–97; BMI 29.3
[2022-12-02 06:32] LABS: Basophils % 0.3 % (0.1-2.0); Eosinophils # 0.6 K/mm3 (0.0-0.4); Eosinophils % 6.7 % (0.1-12.0); Hematocrit 46.6 % (42.0-52.0); Hemoglobin 15.1 g/dL (14.1-18.0); Lymphocytes # 1.3 K/mm3 (0.7-4.5); Lymphocytes % 14.9 % (10-50); Mean Corpuscular HGB Conc 32.5 g/dL (31.8-35.4); Mean Corpuscular Hemoglobin 30.5 pg (27.0-31.2); Mean Platelet Volume 8.9 fl (7.4-10.4); Monocytes # 0.8 K/mm3 (0.1-1.0); Monocytes % 8.7 % (1.7-9.3); Neutrophils # 6.2 K/mm3 (1.8-7.8); Neutrophils % 69.5 % (37.0-80.0); Platelet Count 143 K/mm3 (142-424); Red Blood Count 4.96 M/mm3 (4.60-6.20); Red Cell Distribution Width 13.6 % (11.5-17.5); White Blood Count 8.9 K/mm3 (4.8-10.8)
[2022-12-02 07:51] LABS: Alanine Aminotransferase 26 U/L (12-78); Albumin Level 3.6 g/dl (3.5-5.0); Albumin/Globulin Ratio 1.4 (1.1-1.8); Alkaline Phosphatase 79 U/L (38-126); Anion Gap 11.1 mEq/L (5-15); Aspartate Amino Transferase 28 U/L (17-59); Bilirubin,Total 0.5 mg/dl (0.2-1.3); Blood Urea Nitrogen 20 mg/dl (9-20); Calcium 8.5 mg/dl (8.4-10.2); Carbon Dioxide 25 mmol/L (22.0-30.0); Chloride 107 mmol/L (98-107); Creatinine Clearance Estimated 70 mL/min (50-200); Estimated Glomerular Filt Rate 47 ml/min (>60); GFR (African American) 57 ML/MIN (>60); Globulin 2.6 g/dL (1.3-3.2); Glucose 103 mg/dl (74-100); Magnesium 1.6 mg/dl (1.6-2.3); Potassium 4.1 mmoL/L (3.5-5.1); Sodium 139 mmol/L (136-145); Total Protein,Serum 6.2 g/dl (6.3-8.2)
--- NOTE | 2022-12-02 08:47 | EXP.CARD.PN ---
Subjective Subjective Date: 12/02/22 Time: 08:30 Principal diagnosis: Unstable angina, acute systolic heart failure Interval history: Patient status post left heart cath 12/01/2022 with normal course noted. Official echo report shows an estimated EF of 25 to 30%, diastolic dysfunction and a dilated left ventricle. Patient denies any chest pain this morning reports ongoing shortness of breath. Morning labs reviewed Exam Data for Last 24 hours Vital signs and Labs for Last 24 Hours: Temp Pulse Resp BP Pulse Ox O2 Del Method 97.7 F 80 18 143/81 H 96 Room Air 12/02/22 07:26 12/02/22 08:00 12/02/22 07:26 12/02/22 07:26 12/02/22 07:26 12/02/22 07:26 Laboratory Results - last 24 hr 12/01/22 10:25: Troponin I 0.02 12/01/22 16:02: Troponin I 0.02 12/02/22 05:53: WBC 8.9, RBC 4.96, Hgb 15.1, Hct 46.6, MCV 94.0, MCH 30.5, MCHC 32.5, RDW 13.6, Plt Count 143, MPV 8.9, Neut % (Auto) 69.5, Lymph % (Auto) 14.9, Lane % (Auto) 8.7, Eos % (Auto) 6.7, Baso % (Auto) 0.3, Neut # (Auto) 6.2, Lymph # (Auto) 1.3, Lane # (Auto) 0.8, Eos # (Auto) 0.6 H, Baso # (Auto) 0.0, Sodium 139, Potassium 4.1, Chloride 107, Carbon Dioxide 25, Anion Gap 11.1, BUN 20, Creatinine 1.50 H, Estimated Creat Clear 70, Estimated GFR 47 L, Est GFR ( Amer) 57 L, Glucose 103 H, Calcium 8.5, Magnesium 1.6, Total Bilirubin 0.5, AST 28, ALT 26, Alkaline Phosphatase 79, Total Protein 6.2 L, Albumin 3.6, Globulin 2.6, Albumin/Globulin Ratio 1.4 I & O for Last 24 hours: Intake & Output 11/29/22 11/30/22 12/01/22 12/02/22 23:59 23:59 23:59 23:59 Intake Total 360 / 1300 1360 / 1360 Output Total 900 / 900 1400 / 1400 Balance -540 / 400 -40 / -40 Weight 217 lb 221 lb 6 oz Constitutional Constitutional: no acute distress *Routine Respiratory Exam Respiratory: Present CTA bilaterally and symmetric chest movement *Routine Cardiovascular Exam Cardiovascular: Present RRR, Normal S1 and Normal S2 *Routine Abdominal Exam Abdominal: Present soft and normoactive bowel sounds; Absent tenderness *Routine Extremities Exam Extremities: Present full ROM and normal capillary refill; Absent edema *Routine Skin Exam Skin: Present intact, dry and warm Detailed Neck Exam: Thyroids Thyroid: Absent bruit Progress Note: A&P Assessment and plan (1) Unstable angina: Status: Acute (2) Complete left bundle branch block (LBBB): Status: Acute (3) CKD (chronic kidney disease): Status: Acute (4) Atonic bladder: Status: Acute (5) Heart failure with reduced ejection fraction: Status: Acute Assessment and Plan Assessment and Plan for All Diagnoses:: Unstable angina Left bundle branch block -EKG shows normal sinus rhythm with a left bundle branch block -Initial troponin negative -We will proceed with left heart catheterization today. Discussed risk versus benefits with patient he is agreeable 12/02/2022-status post left heart cath yesterday, normal cors noted. Acute HFrEF NYHA II Diastolic dysfunction Dilated left ventricle Nonischemic cardiomyoapthy -Official echo report from [facility] shows an estimated EF of 25 to 30%, diastolic dysfunction, dilated left ventricle. -GDMT will be initiated. Start Entresto 24/26 mg p.o. twice daily, Aldactone 25 mg p.o. daily, Jardiance 10 mg p.o. daily ,Bumex 1 mg p.o daily. We will initiate beta-suly after diuresis -LifeVest prior to discharge Chronic renal insufficiency -Creatinine today is 1.5, close to baseline 12/02/2022: Creatinine remains at baseline.Continue to monitor with addition of heart failure meds CV summary 12/02/2022: We will start guideline directed medical therapy for systolic heart failure. Patient needs fitted for LifeVest prior to discharge. Anticipated discharge date 12/03/2022 Cardiac meds Entresto 24/26 mg p.o. twice daily Aldactone 25 mg p.o. daily Jardiance 10 mg p.o. daily Bumex 1 mg p.o. daily Will need beta-suly later Atorvastatin 10 mg p.o. daily
--- NOTE | 2022-12-02 11:39 | PC.NURSE ---
Courtesy Round Patient awake and sitting in chair ready for lunch. Patient refused ice water to be refilled at this time. Trash emptied and call babcock within reach.
--- NOTE | 2022-12-02 12:06 | EXP.PN ---
Subjective *Date: 12/02/22 *Time: 12:06 Interval history: No acute events overnight. He denies shortness of breath or chest pain. Exam Data for Last 24 hours Vital signs and Labs for Last 24 Hours: Temp Pulse Resp BP Pulse Ox O2 Del Method 97.7 F 69 18 151/91 H 97 Room Air 12/02/22 11:01 12/02/22 11:01 12/02/22 11:01 12/02/22 11:01 12/02/22 11:01 12/02/22 11:01 Laboratory Results - last 24 hr 12/01/22 16:02: Troponin I 0.02 12/02/22 05:53: WBC 8.9, RBC 4.96, Hgb 15.1, Hct 46.6, MCV 94.0, MCH 30.5, MCHC 32.5, RDW 13.6, Plt Count 143, MPV 8.9, Neut % (Auto) 69.5, Lymph % (Auto) 14.9, Dundy % (Auto) 8.7, Eos % (Auto) 6.7, Baso % (Auto) 0.3, Neut # (Auto) 6.2, Lymph # (Auto) 1.3, Dundy # (Auto) 0.8, Eos # (Auto) 0.6 H, Baso # (Auto) 0.0, Sodium 139, Potassium 4.1, Chloride 107, Carbon Dioxide 25, Anion Gap 11.1, BUN 20, Creatinine 1.50 H, Estimated Creat Clear 70, Estimated GFR 47 L, Est GFR ( Amer) 57 L, Glucose 103 H, Calcium 8.5, Magnesium 1.6, Total Bilirubin 0.5, AST 28, ALT 26, Alkaline Phosphatase 79, Total Protein 6.2 L, Albumin 3.6, Globulin 2.6, Albumin/Globulin Ratio 1.4 I & O for Last 24 hours: Intake & Output 11/29/22 11/30/22 12/01/22 12/02/22 23:59 23:59 23:59 23:59 Intake Total 360 / 1300 1600 / 1600 Output Total 900 / 900 1400 / 1400 Balance -540 / 400 200 / 200 Weight 98.43 kg 100.414 kg Constitutional Constitutional: no acute distress *Routine HEENT Exam Head: Present normocephalic Eye: Present EOMI and PERRL ENT: Present mucous membranes moist *Routine Neck Exam Neck: Present supple; Absent lymphadenopathy *Routine Respiratory Exam Respiratory: Present CTA bilaterally *Routine Cardiovascular Exam Cardiovascular: Present RRR *Routine Abdominal Exam Abdominal: Present soft and normoactive bowel sounds; Absent tenderness *Routine Extremities Exam Extremities: Absent cyanosis, clubbing or edema *Routine Skin Exam Skin: Present warm; Absent rash *Routine Neurological Exam Neurological: Present alert and oriented X3 Assessment and Plan *Assessment and plan (1) Heart failure with reduced ejection fraction: Status: Acute Category: Medical Code(s): I50.20 - Unspecified systolic (congestive) heart failure (2) Complete left bundle branch block (LBBB): Status: Acute Category: Medical Code(s): I44.7 - Left bundle-branch block, unspecified (3) CKD (chronic kidney disease): Status: Acute Category: Medical Code(s): N18.9 - Chronic kidney disease, unspecified (4) Atonic bladder: Status: Acute Category: Medical Code(s): N31.2 - Flaccid neuropathic bladder, not elsewhere classified Plan Andrzej Sue is a 67 year old male with a PMH of atonic bladder (self catheterizes), BPH, recurrent UTIs, CKD, hypertension and hyperlipidemia. He presented with chest pain. EKG with LBBB. He had left cardiac catheterization which revealed normal coronary arteries. Echocardiogram revealed LVEF 25-30%. #acute systolic heart failure #left bundle branch block #severe nonischemic cardiomyopathy #CKD Cardiology started the patient on Entresto, aldactone, jardiance and bumex; they plan to initiate a beta suly after he is diuresed and also plan to discharge him with a Lifevest. I will order a BMP for tomorrow morning. Will ask CM to help the patient with the cost of medications including Entresto. Full Code Cardiac diet
--- NOTE | 2022-12-02 22:18 | PC.NURSE ---
pt took a shower tonight.
[2022-12-03] VITALS (8 sets, daily range): BP systolic 110–135; BP diastolic 64–81; PULSE 70–100; RESP 16–18; TEMP 36.8–36.9; O2SAT 94–98; BMI 28.6
--- NOTE | 2022-12-03 00:51 | ECG_ITS ---
APPROVED REPORT Exam: Resting ECG HR:90 bpm ECG Measurements Heart Rate 90 AXES AK 148 P 38 QRSd 157 QRS 62 QT 426 T 57 QTc 474 Conclusion SINUS RHYTHM INTRAVENTRICULAR CONDUCTION DELAY [130+ ms QRS DURATION] ABNORMAL ECG UNCONFIRMED REPORT Electronically signed by : Romel Evans MD 12/04/2022 21:38:26
--- NOTE | 2022-12-03 00:57 | PC.NURSE ---
vazquez cath removed
--- NOTE | 2022-12-03 00:57 | PC.NURSE ---
coude catheter removed.
--- NOTE | 2022-12-03 01:06 | PC.NURSE ---
midnight tele strip noted changed from 1999, ekg performed, pt asymptomatic. ekg NSR with intraventricular conduction delay at 0051. notified hospitalist, hospitalist states to notify ameya. ameya notified at 0105
[2022-12-03 06:41] LABS: Blood Urea Nitrogen 25 mg/dl (9-20); Calcium 8.8 mg/dl (8.4-10.2); Carbon Dioxide 28 mmol/L (22.0-30.0); Chloride 105 mmol/L (98-107); Creatinine Clearance Estimated 64 mL/min (50-200); Estimated Glomerular Filt Rate 44 ml/min (>60); GFR (African American) 53 ML/MIN (>60); Glucose 123 mg/dl (74-100); Sodium 139 mmol/L (136-145)
--- NOTE | 2022-12-03 07:39 | ECG_ITS ---
APPROVED REPORT Exam: Resting ECG HR:93 bpm ECG Measurements Heart Rate 93 AXES MO 182 P 53 QRSd 157 QRS 61 QT 422 T 35 QTc 473 Conclusion SINUS RHYTHM LEFT BUNDLE BRANCH BLOCK [120+ ms QRS DURATION, 80+ ms Q/S IN V1/V2, 85+ ms R IN I/aVL/V5/V6] ABNORMAL ECG UNCONFIRMED REPORT Electronically signed by : Romel Evans MD 12/04/2022 21:38:13
--- NOTE | 2022-12-03 08:35 | EXP.CARD.PN ---
Subjective Subjective Date: 12/03/22 Time: 08:00 Principal diagnosis: Unstable angina, acute systolic heart failure Interval history: Patient reports feeling okay this morning, denies chest pain or shortness of breath. Has a negative fluid balance of 3650 mL. Morning labs reviewed Exam Data for Last 24 hours Vital signs and Labs for Last 24 Hours: Temp Pulse Resp BP Pulse Ox O2 Del Method 98.5 F 98 H 16 135/74 98 Room Air 12/03/22 07:40 12/03/22 07:40 12/03/22 07:40 12/03/22 07:40 12/03/22 07:40 12/03/22 08:00 Laboratory Results - last 24 hr 12/03/22 06:05: Sodium 139, Potassium 4.0, Chloride 105, Carbon Dioxide 28, Anion Gap 10.0, BUN 25 H, Creatinine 1.60 H, Estimated Creat Clear 64, Estimated GFR 44 L, Est GFR ( Amer) 53 L, Glucose 123 H, Calcium 8.8 I & O for Last 24 hours: Intake & Output 11/30/22 12/01/22 12/02/22 12/03/22 23:59 23:59 23:59 23:59 Intake Total 360 / 1300 2090 / 2090 600 / 600 Output Total 900 / 900 5300 / 5680 1080 / 1080 Balance -540 / 400 -3210 / -3590 -480 / -480 Weight 217 lb 221 lb 5.999 oz 216 lb 4.8 oz Constitutional Constitutional: no acute distress *Routine Respiratory Exam Respiratory: Present CTA bilaterally and symmetric chest movement *Routine Cardiovascular Exam Cardiovascular: Present RRR, Normal S1 and Normal S2 *Routine Abdominal Exam Abdominal: Present soft and normoactive bowel sounds; Absent tenderness *Routine Extremities Exam Extremities: Present full ROM and normal capillary refill; Absent edema *Routine Skin Exam Skin: Present intact, dry and warm Detailed Neck Exam: Thyroids Thyroid: Absent bruit Progress Note: A&P Assessment and plan (1) Heart failure with reduced ejection fraction: Status: Acute (2) Complete left bundle branch block (LBBB): Status: Acute (3) CKD (chronic kidney disease): Status: Acute (4) Atonic bladder: Status: Acute Assessment and Plan Assessment and Plan for All Diagnoses:: Unstable angina Left bundle branch block -EKG shows normal sinus rhythm with a left bundle branch block -Initial troponin negative -We will proceed with left heart catheterization today. Discussed risk versus benefits with patient he is agreeable 12/02/2022-status post left heart cath yesterday, normal cors noted. Acute HFrEF NYHA II Diastolic dysfunction Dilated left ventricle Nonischemic cardiomyoapthy -Official echo report from [facility] shows an estimated EF of 25 to 30%, diastolic dysfunction, dilated left ventricle. -GDMT will be initiated. Start Entresto 24/26 mg p.o. twice daily, Aldactone 25 mg p.o. daily, Jardiance 10 mg p.o. daily ,Bumex 1 mg p.o daily. Add bisoprolol 5 mg p.o. daily -LifeVest prior to discharge 12/03/2022: Doing well. Has a negative fluid balance of over 3000 mL, will add bisoprolol 5 mg p.o. daily today. Shortness of breath is improved. Patient denies chest pain Chronic renal insufficiency -Creatinine today is 1.5, close to baseline 12/03/2022: Creatinine 1.6 CV summary 12/03/2022: Continue guideline directed medical therapy as above with addition of bisoprolol 5 mg p.o. daily. Awaiting LifeVest. Once LifeVest is placed patient is stable for discharge home Cardiac meds Entresto 24/26 mg p.o. twice daily Aldactone 25 mg p.o. daily Jardiance 10 mg p.o. daily Bumex 1 mg p.o. daily Bisoprolol 5 mg p.o. daily Atorvastatin 10 mg p.o. daily
--- NOTE | 2022-12-03 13:21 | PC.NURSE ---
Patient may have cheeseburger, haitian fries and a sweet tea
--- NOTE | 2022-12-03 13:45 | PC.NURSE ---
per dr jen MAY for 0.25mg xanax po q6 prn for anxiety.
--- NOTE | 2022-12-03 16:06 | EXP.DC.SUM ---
General Admission date:: 12/01/22 Discharge date: 12/03/22 HPI HPI HPI: Mr. Paula is a 67-year-old male who presented to the ER because of concern for chest pressure that began on Thursday. States it was in his left chest, felt pressure-like. Started feeling weak with some dizziness and fatigue. Had some nausea but no vomiting. Symptoms were similar to his previous UTIs. He has a standing order for Macrobid from his PCP. Started medication with no improvement in symptoms. Urinalysis obtained on Thursday not concerning for UTI. Symptoms got no better over the course of the weekend. This morning while at work he developed worsening left-sided pressure radiating into his back causing shortness of breath. Came to the ER for further evaluation. Reports having had a heart cath 7 to 10 years ago with normal coronaries at that time. On presentation to the ER, work-up positive for troponin of 0.02. EKG showing left bundle branch block. Concern for this being a new finding. Cardiology was consulted and the patient was admitted for further management. Taken to the [facility] for intervention and evaluation. Medicine consulted for admission for unstable angina. After arriving to the floor, patient has pleasant, stable on room air. Pain not reproducible on exam. Denies any nausea or vomiting. No headaches. Hospital Course Hospital Course Hospital Course: Andrzej Sue is a 67 year old male with a PMH of atonic bladder (self catheterizes), BPH, recurrent UTIs, CKD, hypertension and hyperlipidemia. He presented with chest pain. EKG with LBBB. He had left cardiac catheterization which revealed normal coronary arteries. Echocardiogram revealed LVEF 25-30%. #acute systolic heart failure #left bundle branch block #severe nonischemic cardiomyopathy #CKD Cardiology started the patient on Entresto, aldactone, jardiance, bisoprolol and bumex. The patient diuresed well with bumex and by the day of discharge his dyspnea and chest discomfort had resolved. He was discharged with a Lifevest. He will need to follow up with his PCP and with Cardiology. Exam Data for Last 24 hours Vital signs and Labs for Last 24 Hours: Temp Pulse Resp BP Pulse Ox O2 Del Method 98.4 F 75 16 112/70 96 Room Air 12/03/22 15:10 12/03/22 15:10 12/03/22 15:10 12/03/22 15:10 12/03/22 15:10 12/03/22 15:10 Laboratory Results - last 24 hr 12/03/22 06:05: Sodium 139, Potassium 4.0, Chloride 105, Carbon Dioxide 28, Anion Gap 10.0, BUN 25 H, Creatinine 1.60 H, Estimated Creat Clear 64, Estimated GFR 44 L, Est GFR ( Amer) 53 L, Glucose 123 H, Calcium 8.8 I & O for Last 24 hours: Intake & Output 11/30/22 12/01/22 12/02/22 12/03/22 23:59 23:59 23:59 23:59 Intake Total 360 / 1300 2090 / 2090 840 / 840 Output Total 900 / 900 5300 / 5680 1580 / 1580 Balance -540 / 400 -3210 / -3590 -740 / -740 Weight 98.43 kg 100.414 kg 98.112 kg Constitutional Constitutional: no acute distress *Routine HEENT Exam Head: Present normocephalic Eye: Present EOMI and PERRL ENT: Present mucous membranes moist *Routine Neck Exam Neck: Present supple; Absent lymphadenopathy *Routine Respiratory Exam Respiratory: Present CTA bilaterally *Routine Cardiovascular Exam Cardiovascular: Present RRR *Routine Abdominal Exam Abdominal: Present soft and normoactive bowel sounds; Absent tenderness *Routine Extremities Exam Extremities: Absent cyanosis, clubbing or edema *Routine Skin Exam Skin: Present warm; Absent rash *Routine Neurological Exam Neurological: Present alert and oriented X3 Results Data Completed and Pending Completed studies during hospitalization [Text1]: PROCEDURES Left heart catheterization Left ventriculogram Selective coronary gram INDICATION Acute coronary syndrome, Left bundle branch block, Informed consent was obtained prior to the procedure. COMPLICATIONS None Estimated Blood Loss: Less than 10 ML TECHNIQUE One percent
== END 2022-12-03 17:45 | disposition home or self-care (01) | DRG 286 ==
LOC: ER 09:57 → 2ND 10:38
PROVIDERS: Internal Medicine; Admitting Provider Internal Medicine Adolescent Medicine; Emergency Provider Emergency Medicine; PCP Family Medicine; Visit Provider Internal Medicine Adolescent Medicine
PROC: B2151ZZ Fluoroscopy of Left Heart using Low Osmolar Contrast (ICD-10-PCS; principal; 2022-12-01 11:45)
DX: I13.0 Hypertensive heart and chronic kidney disease with heart failure and stage 1 through stage 4 chronic kidney disease, or unspecified chronic kidney disease (principal); I50.21 Acute systolic (congestive) heart failure; I20.0 Unstable angina; I42.8 Other cardiomyopathies; N40.0 Benign prostatic hyperplasia without lower urinary tract symptoms; E78.5 Hyperlipidemia, unspecified; N31.2 Flaccid neuropathic bladder, not elsewhere classified; N18.9 Chronic kidney disease, unspecified
CPT/HCPCS: 36415; 71045; 71275; 80048; 80053; 83735; 84484; 85025; 87636; 93005; 93306; 93458; 99152; 99285; C1725; C1769; J1644; Q9967

== ENCOUNTER → 2022-12-24 07:42 | Outpatient (CLI) | payer BC, SELFPAY ==
--- NOTE | 2022-12-24 07:46 | US_ITS ---
FINAL REPORT TECHNIQUE: Ultrasound images of the abdominal aorta were obtained. CLINICAL HISTORY: Screening for abdominal aortic aneurysm COMPARISON: None FINDINGS: ULTRASOUND OF THE ABDOMINAL AORTA The aorta measures up to 2.0 cm. The bifurcation is normal. IMPRESSION: No evidence of abdominal aortic aneurysm. Reviewed, Interpreted and Dictated by Camilo Mahmood III, MD Transcribed by Hermniia Croft Authenticated and [facility]
[2022-12-24 08:28] LABS: Basophils % 0.6 % (0.1-2.0); Eosinophils # 0.3 K/mm3 (0.0-0.4); Eosinophils % 3.6 % (0.1-12.0); Hematocrit 48.3 % (42.0-52.0); Hemoglobin 15.9 g/dL (14.1-18.0); Lymphocytes # 1.6 K/mm3 (0.7-4.5); Lymphocytes % 21.1 % (10-50); Mean Corpuscular Hemoglobin 30.4 pg (27.0-31.2); Mean Corpuscular Volume 92.3 fl (80-94); Mean Platelet Volume 9.2 fl (7.4-10.4); Monocytes # 0.6 K/mm3 (0.1-1.0); Monocytes % 7.6 % (1.7-9.3); Neutrophils # 5.2 K/mm3 (1.8-7.8); Neutrophils % 67.2 % (37.0-80.0); Platelet Count 143 K/mm3 (142-424); Red Blood Count 5.23 M/mm3 (4.60-6.20); White Blood Count 7.8 K/mm3 (4.8-10.8)
[2022-12-24 09:20] LABS: Alanine Aminotransferase 28 U/L (12-78); Albumin Level 4.3 g/dl (3.5-5.0); Albumin/Globulin Ratio 1.7 (1.1-1.8); Alkaline Phosphatase 83 U/L (38-126); Anion Gap 11.4 mEq/L (5-15); Aspartate Amino Transferase 25 U/L (17-59); Bilirubin,Total 0.3 mg/dl (0.2-1.3); Blood Urea Nitrogen 36 mg/dl (9-20); Calcium 9.1 mg/dl (8.4-10.2); Carbon Dioxide 28 mmol/L (22.0-30.0); Chloride 107 mmol/L (98-107); Chol/HDL Ratio 4.6 (1-3.5); Cholesterol 144 mg/dl (140-200); Estimated Glomerular Filt Rate 41 ml/min (>60); GFR (African American) 49 ML/MIN (>60); Globulin 2.6 g/dL (1.3-3.2); Glucose 101 mg/dl (74-100); HDL Cholesterol 31 mg/dl (40-60); Potassium 4.4 mmoL/L (3.5-5.1); Sodium 142 mmol/L (136-145); Total Protein,Serum 6.9 g/dl (6.3-8.2); Triglycerides 126 mg/dl (30-150); Uric Acid 5.1 mg/dl (3.5-8.5); VLDL Cholesterol 25 mg/dL (0-40)
[2022-12-24 09:34] LABS: Hemoglobin A1C 5.5 % (4.0-6.0)
[2022-12-24 10:07] LABS: 25-OH Vitamin D, Total 46.2 ng/mL (30-100)
[2022-12-24 10:22] LABS: Prostate Specific Ag Screen 6.4 ng/ml (0.0-4.0); Thyroid Stimulating Hormone 1.37 uIU/mL (0.465-4.68)
[2022-12-24 10:42] LABS: Vitamin B12 704 pg/mL (239-931)
[2022-12-24 12:55] LABS: Microscopic, Urine URINE MICROSCOPIC (MICROSCOPIC)
[2022-12-24 13:02] LABS: Appearance,Urine CLEAR (Clear); Bilirubin,Urine Negative (Negative); Blood, Urine Negative (Negative); Color,Urine YELLOW (Yellow); Glucose,Urine (UA) 3+ (Negative); Ketones,Urine Negative (Negative); Leukocyte Esterase,Urine Negative (Negative); Nitrate,Urine Negative (Negative); Protein,Urine Negative (Negative); Urobilinogen,Urine 0.2 EU/dl (0.2)
[2022-12-24 13:14] LABS: Creatinine,Urine Random 61 mg/dL (Not Estab.)
[2022-12-24 13:18] LABS: Bacteria,Urine Trace /lpf; Microalbumin/Creatinine Ratio 12.2; Squamous Epithelial Cell,Urine Occasional #/hpf (0-5)
== END ==
PROVIDERS: PCP Nurse Practitioner Family; Visit Provider Nurse Practitioner Family
DX: I50.20 Unspecified systolic (congestive) heart failure (principal); Z13.6 Encounter for screening for cardiovascular disorders; Z13.1 Encounter for screening for diabetes mellitus; I10 Essential (primary) hypertension; M10.9 Gout, unspecified; N18.9 Chronic kidney disease, unspecified; N31.2 Flaccid neuropathic bladder, not elsewhere classified; R97.20 Elevated prostate specific antigen [PSA]; N40.0 Benign prostatic hyperplasia without lower urinary tract symptoms; Z79.899 Other long term (current) drug therapy
CPT/HCPCS: 76705; 80053; 80061; 81001; 82043; 82306; 82570; 82607; 83036; 84443; 84550; 85025; 87086; G0103

== ENCOUNTER → 2023-01-23 06:59 | Outpatient (CLI) | payer BC, SELFPAY ==
--- NOTE | 2023-01-23 07:03 | CT_ITS ---
FINAL REPORT CLINICAL HISTORY: Chronic Sinusitis COMPARISON: None FINDINGS: The paranasal sinuses are well aerated. The ostiomeatal units are adequately patent. There is no fracture. There are no air-fluid levels. There is mild deviation of the nasal septum to the right. IMPRESSION: No acute process. Mild nasal septum deviation to the right. Reviewed, Interpreted and Dictated by Severino Leyva MD Transcribed by Herminia Croft Authenticated and . [facility]
== END ==
PROVIDERS: PCP Nurse Practitioner Family; Visit Provider Nurse Practitioner
DX: J32.9 Chronic sinusitis, unspecified (principal)
CPT/HCPCS: 70486

== ENCOUNTER → 2023-01-27 10:40 | Outpatient (POV) | payer BC, SELFPAY | PROVIDERS: Visit Provider Dermatology | DX: Z00.00 Encounter for general adult medical examination without abnormal findings (principal) ==

== ENCOUNTER 2023-02-26 23:28 | Emergency (ER) | payer BC, SELFPAY ==
[2023-02-26 23:29] VITALS: BP 154/94; PULSE 63; RESP 16; TEMP 36.6; O2SAT 98; BMI 27.7
--- NOTE | 2023-02-26 23:30 | ECG_ITS ---
APPROVED REPORT Exam: Resting ECG HR:60 bpm ECG Measurements Heart Rate 60 AXES NC 194 P 31 QRSd 102 QRS 50 QT 444 T 82 QTc 446 Conclusion SINUS RHYTHM WITH OCCASIONAL VENTRICULAR PREMATURE COMPLEXES MINIMAL ST DEPRESSION [0.025+ mV ST DEPRESSION] BORDERLINE ECG UNCONFIRMED REPORT Electronically signed by : Romel Evans MD 02/28/2023 07:59:49
[2023-02-26 23:34] VITALS: PULSE 63
--- NOTE | 2023-02-26 23:47 | PC.NURSE ---
in room talking with patient at this time.
--- NOTE | 2023-02-26 23:48 | PC.NURSE ---
MD @ bedside performing ultrasound
[2023-02-26 23:51] LABS: Alanine Aminotransferase 28 U/L (12-78); Albumin Level 4.4 g/dl (3.5-5.0); Albumin/Globulin Ratio 1.4 (1.1-1.8); Alkaline Phosphatase 76 U/L (38-126); Anion Gap 10.6 mEq/L (5-15); Aspartate Amino Transferase 28 U/L (17-59); Bilirubin,Total 0.4 mg/dl (0.2-1.3); Blood Urea Nitrogen 34 mg/dl (9-20); Calcium 8.7 mg/dl (8.4-10.2); Carbon Dioxide 27 mmol/L (22.0-30.0); Chloride 106 mmol/L (98-107); Creatinine Clearance Estimated 58 mL/min (50-200); Estimated Glomerular Filt Rate 41 ml/min (>60); GFR (African American) 49 ML/MIN (>60); Globulin 3.2 g/dL (1.3-3.2); Glucose 127 mg/dl (74-100); Magnesium 1.8 mg/dl (1.6-2.3); Potassium 3.6 mmoL/L (3.5-5.1); Sodium 140 mmol/L (136-145); Total Protein,Serum 7.6 g/dl (6.3-8.2)
[2023-02-27] VITALS: BP 121/77; RESP 17
--- NOTE | 2023-02-27 | HMH.EDGENADL ---
Discharge Plan Disposition Patient Disposition: Home, Self-Care Condition: Good Prescriptions Prescriptions: No Action Entresto 97-103 mg tablet 1 tab PO BID Qty: 60 3RF loratadine [Claritin] 10 mg tablet 10 mg PO DAILY Qty: 90 1RF famotidine 20 mg tablet 40 mg PO DAILY 90 Days Qty: 180 3RF allopurinol 100 mg tablet See Rx Instructions .ROUTE .COMPLEX Qty: 30 0RF Dose Instruction: TAKE ONE TABLET BY MOUTH ONCE A DAY FOR GOUT Rx Instructions: TAKE ONE TABLET BY MOUTH ONCE A DAY FOR GOUT bisoprolol fumarate 5 mg tablet 5 mg PO DAILY Qty: 90 3RF Jardiance 10 mg tablet 10 mg PO DAILY Qty: 90 3RF omeprazole 20 mg capsule,delayed release(DR/EC) See Rx Instructions .ROUTE .COMPLEX Qty: 90 0RF Dose Instruction: TAKE ONE CAPSULE BY MOUTH ONCE A DAY FOR ACID REFLUX Rx Instructions: TAKE ONE CAPSULE BY MOUTH ONCE A DAY FOR ACID REFLUX atorvastatin 10 mg tablet 10 mg PO DAILY Referrals Follow up/Referrals: Provider,Referral, MD [Primary Care Provider] - See instructions Activity Restrictions/Add. Instructions Additional Instructions/Restrictions: Call Dr. Fagan's office in the morning to discuss follow-up. Please return to the ER if you develop any new or worsening symptoms or become concerned for your health. Clinical Impressions Clinical Impression: Frequent PVCs, Dizziness Heart failure Qualifiers: Heart failure type: systolic Heart failure chronicity: chronic Qualified Code(s): I50.22 - Chronic systolic (congestive) heart failure Discharge ED Provider: Mateus Cason Adult HPI General Chief complaint: Dizziness Stated complaint: chest pain Time Seen by Provider: 02/26/23 23:34 Mode of Arrival: Ambulatory Source of Information: Patient Limitations: No Limitations Description of Symptoms (Recalled from ER Triage Doc. by RN): pt c/o dizziness and weakness that started a hour prior to arrival. pt is currently wearing a life vest. History of Present Illness HPI narrative: 67-year-old male history of nonischemic cardiomyopathy with baseline EF approximately 25 to 30%, on LifeVest since November, presents with generalized weakness and fatigue and wooziness for the last hour or so. He reports that he feels like his heart is skipping beats and he feels just out of sorts. He denies any chest pain shortness of breath abdominal pain. Reports dizziness. Denies any recent changes in food or water intake, denies any changes in bowel or bladder function. He reports that this feels exactly like the last time he was here in November. Related Data Home Medications Medication Instructions Recorded Confirmed atorvastatin 10 mg tablet 10 mg PO DAILY Cholesterol 12/01/22 02/26/23 Previous Rx's Medication Instructions Recorded loratadine 10 mg tablet (Claritin) 10 mg PO DAILY #90 tabs 01/08/23 allopurinol 100 mg tablet See Rx Instructions .Route 01/20/23 .COMPLEX #30 tabs bisoprolol fumarate 5 mg tablet 5 mg PO DAILY #90 tabs 01/27/23 empagliflozin 10 mg tablet 10 mg PO DAILY #90 tabs 01/27/23 (Jardiance) famotidine 20 mg tablet 40 mg PO DAILY GERD 90 days #180 01/28/23 tabs sacubitril 97 mg-valsartan 103 mg 1 tab PO BID #60 tabs 02/09/23 tablet (Entresto) omeprazole 20 mg capsule,delayed See Rx Instructions .Route 02/26/23 release .COMPLEX #90 caps Allergies Allergy/AdvReac Type Severity Reaction Status Date / Time Iodinated Contrast Media AdvReac Intermediate WAS TOLD Verified 02/09/23 11:02 HARMFUL TO KIDNEYS [facility] Disclaimer: The information contained in this section may have been updated after the patient was seen, as this information can be updated by other users. Medical History Acute pain of right knee Acute systolic CHF (congestive heart failure) BPH (benign prostatic hyperplasia) CKD (chronic kidney disease) Established with [facility]
--- NOTE | 2023-02-27 00:02 | PC.NURSE ---
rounded on patient, turned on tv and changed channel.
[2023-02-27 00:03] LABS: Basophils % 0.5 % (0.1-2.0); Eosinophils # 0.2 K/mm3 (0.0-0.4); Eosinophils % 2.3 % (0.1-12.0); Hematocrit 51.4 % (42.0-52.0); Hemoglobin 16.6 g/dL (14.1-18.0); Lymphocytes # 2.4 K/mm3 (0.7-4.5); Lymphocytes % 25.5 % (10-50); Mean Corpuscular HGB Conc 32.2 g/dL (31.8-35.4); Mean Corpuscular Hemoglobin 30.5 pg (27.0-31.2); Mean Corpuscular Volume 94.8 fl (80-94); Monocytes # 0.6 K/mm3 (0.1-1.0); Monocytes % 6.5 % (1.7-9.3); Neutrophils # 6.2 K/mm3 (1.8-7.8); Neutrophils % 65.2 % (37.0-80.0); Platelet Count 163 K/mm3 (142-424); Red Blood Count 5.42 M/mm3 (4.60-6.20); Red Cell Distribution Width 13.7 % (11.5-17.5); White Blood Count 9.5 K/mm3 (4.8-10.8)
[2023-02-27 00:06] LABS: Troponin I < 0.01 ng/ml (0.00-0.034)
[2023-02-27 00:21] LABS: Thyroid Stimulating Hormone 1.53 uIU/mL (0.465-4.68)
[2023-02-27 00:30] VITALS: BP 115/72; PULSE 54; RESP 18; O2SAT 94
--- NOTE | 2023-02-27 00:45 | PC.NURSE ---
in room talking with patient at this time.
[2023-02-27 01:01] VITALS: BP 115/73; PULSE 64; RESP 17; O2SAT 94
[2023-02-27 01:34] VITALS: BP 122/71; PULSE 55; RESP 16; O2SAT 95
--- NOTE | 2023-02-27 01:34 | PC.NURSE ---
Rounded on patient, no needs voiced at this time.
[2023-02-27 02:01] VITALS: BP 117/71; PULSE 48; RESP 19; O2SAT 96
[2023-02-27 03:00] LABS: Troponin I < 0.01 ng/ml (0.00-0.034)
[2023-02-27 03:10] VITALS: BP 113/72; PULSE 53; RESP 17; TEMP 36.6; O2SAT 95
== END 2023-02-27 03:11 | disposition home or self-care (01) ==
PROVIDERS: Emergency Provider Emergency Medicine
DX: I49.3 Ventricular premature depolarization (principal); R07.89 Other chest pain; R53.83 Other fatigue; R42 Dizziness and giddiness; I11.0 Hypertensive heart disease with heart failure; I50.22 Chronic systolic (congestive) heart failure; N18.31 Chronic kidney disease, stage 3a; E78.5 Hyperlipidemia, unspecified; Z87.891 Personal history of nicotine dependence
CPT/HCPCS: 80053; 83735; 84443; 84484; 85025; 93005; 99284

== ENCOUNTER → 2023-03-04 12:08 | Outpatient (CLI) | payer BC, SELFPAY ==
--- NOTE | 2023-03-04 12:09 | CA_ITS ---
APPROVED REPORT EXAM: Comprehensive 2D, Doppler, and color-flow Echocardiogram Metal Burrer: RT Ariella(R) Ht: 6 ft 1 in Wt: 212lbs BSA: 2.21 BP: 115/74 mmHg Indications: SOA, systolic HF, HTN, hyperlipidemia, CKD, limited echo to assess EF in patient with lifevest. 2D Dimensions LVEF (Rodriguez's) 44.80 % M: 52 - 72 LV Volume 139.90 mL M: 62 - 150 LV Volume Index 63.30 mL/m2 M: 34 - 74 M-Mode Dimensions RVDd 2.28 cm (0.9-2.6) LVDd 5.31 cm (3.5-5.7) LVDs 4.60 cm (3.5-5.7) IVSd 0.89 cm (0.6-1.1) PWd 0.71 cm (0.6-1.1) EF (Teich) 28.40% FS 13.40% EDV (Teich) 135.90 mL ESV (Teich) 97.30 mL LV Diastology E Decel Time 263.00 (160-240 msec) E/A Ratio 0.6 MED E' 4.80 (< 7 cm/sec) E'/MED E' Ratio 8.08 (>14) LAT E' 5.80 (<10 cm/sec) E/LAT E' Ratio 6.69 (>14) Mitral Valve MV E Max Cristiano. 39.00 (40-130 cm/s) MV A Velocity 63.00 (40-130 cm/s) E/A Ratio 0.61 MV Decel. Time 263.00 (160-240 ms) MV PHT 77.00 ms Other Information Study Quality: Fair Conclusion This is a limited TTE to evaluate for LVEF. Limited windows were obtained. The left ventricle appears normal in size. There is mild to moderate reduction in LV systolic function. Mild global hypokinesis is present. LVEF is 40%. The right ventricle appears normal in size and function. Electronically signed by : Shama Quinteros MD 03/06/2023 23:47:08
[2023-03-04 12:22] LABS: Microscopic, Urine URINE MICROSCOPIC (MICROSCOPIC)
[2023-03-04 12:31] LABS: Basophils % 0.3 % (0.1-2.0); Eosinophils # 0.2 K/mm3 (0.0-0.4); Eosinophils % 2.4 % (0.1-12.0); Hematocrit 49.9 % (42.0-52.0); Hemoglobin 17.5 g/dL (14.1-18.0); Lymphocytes # 1.5 K/mm3 (0.7-4.5); Lymphocytes % 19.7 % (10-50); Mean Corpuscular Hemoglobin 32.3 pg (27.0-31.2); Mean Corpuscular Volume 92.3 fl (80-94); Mean Platelet Volume 9.1 fl (7.4-10.4); Monocytes # 0.5 K/mm3 (0.1-1.0); Monocytes % 7.4 % (1.7-9.3); Neutrophils # 5.1 K/mm3 (1.8-7.8); Neutrophils % 70.2 % (37.0-80.0); Platelet Count 127 K/mm3 (142-424); Red Blood Count 5.41 M/mm3 (4.60-6.20); Red Cell Distribution Width 13.8 % (11.5-17.5); White Blood Count 7.3 K/mm3 (4.8-10.8)
[2023-03-04 12:34] LABS: Appearance,Urine CLEAR (Clear); Bilirubin,Urine Negative (Negative); Blood, Urine Negative (Negative); Color,Urine YELLOW (Yellow); Glucose,Urine (UA) 3+ (Negative); Ketones,Urine Negative (Negative); Leukocyte Esterase,Urine Negative (Negative); Nitrate,Urine Negative (Negative); Protein,Urine Negative (Negative); Urobilinogen,Urine 0.2 EU/dl (0.2)
[2023-03-04 12:45] LABS: Creatinine,Urine Random 35 mg/dL (Not Estab.)
[2023-03-04 12:49] LABS: Bacteria,Urine Trace /lpf
[2023-03-04 12:55] LABS: Albumin Level 4.4 g/dl (3.5-5.0); Anion Gap 14.5 mEq/L (5-15); Blood Urea Nitrogen 31 mg/dl (9-20); Calcium 8.9 mg/dl (8.4-10.2); Carbon Dioxide 22 mmol/L (22.0-30.0); Chloride 108 mmol/L (98-107); Estimated Glomerular Filt Rate 44 ml/min (>60); GFR (African American) 53 ML/MIN (>60); Glucose 105 mg/dl (74-100); Phosphorous 4.1 mg/dl (2.5-4.5); Potassium 4.5 mmoL/L (3.5-5.1); Sodium 140 mmol/L (136-145)
[2023-03-04 12:56] LABS: Anion Gap 14.4 mEq/L (5-15); Blood Urea Nitrogen 30 mg/dl (9-20); Calcium 9.1 mg/dl (8.4-10.2); Carbon Dioxide 23 mmol/L (22.0-30.0); Chloride 108 mmol/L (98-107); Estimated Glomerular Filt Rate 44 ml/min (>60); GFR (African American) 53 ML/MIN (>60); Glucose 104 mg/dl (74-100); Potassium 4.4 mmoL/L (3.5-5.1); Sodium 141 mmol/L (136-145)
== END ==
PROVIDERS: Nurse Practitioner Family; PCP Nurse Practitioner Family; Referring Provider Hospitalist; Visit Provider Internal Medicine
DX: E78.5 Hyperlipidemia, unspecified (principal); I11.0 Hypertensive heart disease with heart failure; I50.21 Acute systolic (congestive) heart failure; N18.30 Chronic kidney disease, stage 3 unspecified; Z87.891 Personal history of nicotine dependence; I12.9 Hypertensive chronic kidney disease with stage 1 through stage 4 chronic kidney disease, or unspecified chronic kidney disease
CPT/HCPCS: 36415; 80048; 80069; 81001; 82570; 84155; 85025; 93308

== ENCOUNTER → 2023-03-19 10:35 | Outpatient (CLI) | payer BC, SELFPAY ==
--- NOTE | 2023-03-19 10:42 | XR_ITS ---
FINAL REPORT CLINICAL HISTORY: foot pain burning and redness at 5th mtp joint, plantar side COMPARISON: None FINDINGS: LEFT FOOT: Three views of the left foot were obtained. There is no acute fracture or dislocation. There is hallux valgus deformity present, and mild degenerative change, greatest at the first metatarsal phalangeal joint. Pes planus is present. A small plantar calcaneal spur is present. There is no soft tissue abnormality. IMPRESSION: No acute bony abnormality. Degenerative change as described above. Reviewed, Interpreted and Dictated by Camilo Mahmood III, MD Transcribed by Genevieve Olvera Authenticated and [facility]
== END ==
PROVIDERS: PCP Nurse Practitioner Family; Visit Provider Podiatrist
DX: M79.672 Pain in left foot (principal)
CPT/HCPCS: 73630

== ENCOUNTER → 2023-05-04 10:24 | Outpatient (POV) | payer BC, SELFPAY ==
--- NOTE | 2023-05-04 10:29 | EXP.PAIN.OV ---
HPI Data of Consult Patient: new to practice Consult date: 05/04/23 Requesting Physician: Valeria Bell APRN Primary Care Provider: Hemalatha Pritchard APRN Consult Narrative Reason for consult: Low back pain, bilateral hip/buttock pain, neck pain History of present illness: Mr. Sue is a 67 year old male who presents today as a new patient. He is a self-referral. Patient was previously a patient in our office a couple of years ago. Patient does rate his pain today an 8 out of 10. Patient states his pain is all in his neck and denies any radiating symptoms as well as his low back with radiating pain into his hips and buttocks. Patient does state that his neck is a short aching sensation that is worse with increased activity or range of motion. He states that the left side is worse than the right. He states this has been going on for years unrelated to any specific trauma or injury. He does state his low back hip and buttocks pain has been more aggravated over the last 6 months. Patient does describe this as an aching, throbbing sensation with some tingling. He states he has had SI issues in the past. He states that he did have 100% improvement as soon as he had SI injections last time years ago. Patient states that he also had injections in his bilateral shoulders for pain and limited range of motion and these injections have still provided significant relief and it is been approximately 9 years. Patient states that he has had surgery in the past related to a disc herniation in [address] that was done [address] Levy. He stated he had 100% relief following this procedure. Patient has tried [id number] Tylenol and ibuprofen along with multiple topicals with no additional relief. Patient has had physical therapy with no change of his symptoms. Patient does exercise at home on a daily basis including walking and range of motion exercises. Patient is very active and cleans around his home while his has been recovering from total knee replacement. Patient has significant comorbidities including chronic kidney disease, heart failure. Patient is not currently on any scheduled medications. Patient denies any recent imaging. His Jalen has been reviewed and is appropriate. CC: Valeria Bell APRN [facility] Disclaimer: The information contained in this section may have been updated after the patient was seen, as this information can be updated by other users. Medical History (Updated 05/04/23 @ 11:08 by Valeria Bell APRN) Acute pain of right knee Acute systolic CHF (congestive heart failure) Allergic rhinitis BPH (benign prostatic hyperplasia) Chronic sinusitis CKD (chronic kidney disease) Contusion of right knee Deviated nasal septum Heart failure with reduced ejection fraction History of postnasal drip Hyperlipidemia Hypertension Urinary tract infection Urinary tract infection Surgical History H/O hernia repair H/O prostate biopsy History of back surgery History of cardiac cath Family History Other Heart attack No significant family history Renal disease Stroke Social History Smoking Status: Former smoker years smoked: 33 how long ago did patient quit smokin years second hand exposure: No alcohol intake: former substance use type: denies use current occupational status: employed Travel in the last 8 weeks: None household members: spouse housing: house current occupational exposures/hazards: No caffeine: Yes Review of Systems Review of Systems Review of systems:: pertinent systems reviewed and negative unless documented below Review of systems (narrative): Review of Systems: General: No recent weight changes, no fever, no sleep disturbances Respiratory: No cough, no shortness of air, no recurring pulmonary infectio
[2023-05-04 10:53] VITALS: BP 120/78; PULSE 56; RESP 18; O2SAT 95; BMI 27.7
== END ==
PROVIDERS: PCP Nurse Practitioner Family; Visit Provider Nurse Practitioner Family
DX: M51.36 Other intervertebral disc degeneration, lumbar region (principal); M46.1 Sacroiliitis, not elsewhere classified; M25.551 Pain in right hip; M25.552 Pain in left hip; M54.2 Cervicalgia
CPT/HCPCS: 99202; G0463

== ENCOUNTER → 2023-05-05 13:25 | Outpatient (CLI) | payer BC, SELFPAY ==
--- NOTE | 2023-05-05 13:30 | XR_ITS ---
FINAL REPORT TECHNIQUE: 5 views CLINICAL HISTORY: LBP COMPARISON: None FINDINGS: There is no fracture present. There is no malalignment. There is mild disc space narrowing of the L5-S1 disc. There are mild anterior osteophytes present at the T11-12 and T12-L1 levels. IMPRESSION: Degenerative change as described above. No acute bony abnormality present. Reviewed, Interpreted and Dictated by Severino Leyva MD Transcribed by Genevieve Olvera Authenticated and [facility]
--- NOTE | 2023-05-05 13:30 | XR_ITS ---
FINAL REPORT CLINICAL HISTORY: LBP FINDINGS: Sacroiliac joints Three views were obtained. There is no acute fracture or dislocation. There are mild hypertrophic changes at the inferior margins of the sacroiliac joints. The sacral arches appear intact. No soft tissue abnormality is identified. IMPRESSION: No acute process. Reviewed, Interpreted and Dictated by Severino Leyva MD Transcribed by Jigna Allen Authenticated and [facility]
== END ==
PROVIDERS: PCP Nurse Practitioner Family; Visit Provider Anesthesiology
DX: M54.50 Low back pain, unspecified (principal)
CPT/HCPCS: 72110; 72202

== ENCOUNTER → 2023-06-19 09:17 | Outpatient (POV) | payer BC, SELFPAY ==
[2023-06-19 09:41] VITALS: BP 121/82; PULSE 62; RESP 18; O2SAT 94; BMI 27.7
--- NOTE | 2023-06-19 09:57 | A.OFFVIS_ITS ---
[facility] Pain Management SOAP Note Subjective:: Patient is a pleasant 67-year-old male who presents today for insurance denial of SI injections. 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 Today he rates his pain a 5 out of 10. Patient denies any new trauma or injury. He states he continues to have chronic pain at his hip and buttocks area. Patient does describe this as an aching, throbbing sensation with some tingling. Patient does have a history of chronic sacroiliitis. Patient does state the pain is worse with prolonged positioning or walking. He states that frequently it seems to be aggravated with driving or walking upstairs. Patient does state the pain interferes with his ability perform activities of daily living such as cooking and cleaning. Patient is still interested in injection therapy for improvement. Patient has tried and failed conservative therapy such as oral medication, heat and ice, topicals, at home stretching exercise for longer than 6 weeks. Patient did previously have a SI injection that did provide 100% improvement however this was done years ago and did not have any additional issues after that up until this point. His Jalen has been reviewed and is appropriate. Review of Systems: General: No recent weight changes, no fever, no sleep disturbances Respiratory: No cough, no shortness of air, no recurring pulmonary infections Cardiovascular/peripheral vascular: No chest pain, no palpitations, no edema, no shortness of breath Gastrointestinal: No new onset incontinence, normal bowel movements reported Genitourinary: No new onset incontinence Musculoskeletal: Low back pain, bilateral hip pain Psychiatric: [Normal mood/affect] Neurological: [Denies weakness in extremities], [denies balance issues] Objective:: Physical Exam: General: Alert and oriented x3, no acute distress, pleasant and cooperative Lungs: Respirations even and unlabored, symmetrical chest expansion Eyes: PERRL Musculoskeletal: Flexion and extension of lumbar [spine] somewhat guarded secondary to pain, [antalgic gait noted] point tenderness along bilateral SIs with positive bilateral Jeannette's, Tennille's, Gaenslen's, compression and distraction exam Neurological: Speech clear, no gross sensory deficit Assessment:: 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 I have discussed with the patient that I do believe he still would benefit from bilateral SI injections. Patient has tried and failed conservative therapy and has had SI injections in the past that did provide 100% improvement lasting for longer than a year. Patient has been counseled regarding a possible SI stabilization procedure in the future if he has successful relief following these injections. Patient is interested in this option. We will resubmit for bilateral SI injections under fluoroscopy and contact the patient with time and date once we have approval. Patient has been instructed to contact the clinic with any concerns before the next appointment. Dr. Santana has reviewed this note and agrees with this plan of care. This note was dictated using voice recognition software and make contain errors or omissions. [facility] Disclaimer: The information contained in this section may have been updated after the patient was seen, as this information can be updated by other users. Medical History Acute pain of right knee Acute systolic CHF (congestive heart failure) Allergic rhinitis BPH (benign prostatic hyperplasia) Chronic sinusitis CKD (chronic kidney disease) Established with [facility] Stage 3a Contusion of right knee Deviated nasal septum Heart failure with reduced ejection fraction History of postnasal drip Hyperlipidemia Hypertension Urinary tract infection Urinary tract infection Surgical History H/O hernia repair x3 H/O prostate biopsy 06/2021 History of back surgery 06/2019-herniated disc History of cardiac cath ~2016 Family History Other Heart attack No significant family history Renal disease Stroke Social History Smoking Status: Former smoker years smoked: 33 how long ago did patient quit smokin years second hand exposure: No alcohol intake: former substance use type: denies use current occupational status: employed Travel in the last 8 weeks: None household members: spouse housing: house current occupational exposures/hazards: No caffeine: Yes
== END ==
LOC: SC.PAIN 09:17
PROVIDERS: PCP Nurse Practitioner Family; Visit Provider Nurse Practitioner Family
DX: M51.36 Other intervertebral disc degeneration, lumbar region (principal); M46.1 Sacroiliitis, not elsewhere classified; M25.551 Pain in right hip; M25.552 Pain in left hip; M54.2 Cervicalgia
CPT/HCPCS: 99212; G0463

== ENCOUNTER 2023-07-03 10:18 | Day surgery (SDC) | payer BC, SELFPAY ==
[2023-07-03 10:39] VITALS: BP 125/75; PULSE 56; RESP 16; O2SAT 97; BMI 27.7
[2023-07-03] MEDS: BUPIVACAINE 0.25% 10ML INJ 25 MG IJ (11:15)
[2023-07-03] MEDS: LIDOCAINE 1% 5ML PF VIAL 10 ML (11:18)
[2023-07-03 11:21] VITALS: BP 121/87; PULSE 60; RESP 18; O2SAT 96
[2023-07-03 11:24] VITALS: BP 121/87; PULSE 56; RESP 18; O2SAT 96
[2023-07-03] MEDS: IOPAMIDOL-200 (41%);10ML VIAL 10 ML IV (11:28)
[2023-07-03 11:30] VITALS: BP 130/77; PULSE 52; RESP 18; O2SAT 97
--- NOTE | 2023-07-03 14:05 | EXP.PAIN.PRO ---
Procedure Date: 07/03/23 Time: 14:05 Anesthesiologist:: Yohan Santana MD Complications:: None Pre-procedure Diagnosis:: Sacroiliitis Post-procedure Diagnosis:: Same Indications for Procedure:: This patient is a 67-year-old white male who we have been treating for low back pain with lumbar radiculopathy symptoms and bilateral sacroiliitis. He is tender over both SI joints. He has positive Jeannette's test bilaterally. He is positive Fransico test bilaterally. Positive SI joint compression test bilaterally. He is done well with SI joint injections previously his last 1 gave him 100% relief for 4 to 5 months. We will do a repeat bilateral SI joint injection under fluoroscopy today we will reevaluate his symptoms after that. Procedure Details:: B/L SI joint injection under fluoroscopy Informed consent was obtained and the risks and benefits of the procedure was explained to the patient. The patient was taken to the procedure room and placed prone on the procedure table. The patient was prepped using ChloraPrep. The skin and subcutaneous tissues overlying the SI joints were anesthetized using lidocaine. I placed a 22-gauge needle first in the left SI joint and second in the right SI joint. Needle placement was confirmed with dye. After this we injected 5 mL bupivacaine 0.25% and Depo-Medrol 40 mg into each SI joint. Patient tolerated the procedure well with no complication. Plan and Disposition:: Will follow-up with him in 2 weeks. Will reevaluate symptoms at that time.
== END 2023-07-03 11:30 | disposition home or self-care (01) ==
LOC: SC.PAINP 10:18
PROVIDERS: PCP Nurse Practitioner Family; Visit Provider Anesthesiology
DX: M46.1 Sacroiliitis, not elsewhere classified (principal)
CPT/HCPCS: 27096; G0260; J1030; Q9966

== ENCOUNTER 2023-07-17 14:03 | Outpatient (POV) | payer BC, SELFPAY ==
[2023-07-17 15:06] VITALS: BP 103/66; PULSE 70; RESP 20; O2SAT 94; BMI 28.3
--- NOTE | 2023-07-17 15:48 | A.OFFVIS_ITS ---
[facility] Pain Management SOAP Note Subjective:: Patient is a pleasant 67-year-old male who presents today for follow-up of bilateral SI injections under fluoroscopy on 07/03/2023. We are currently treating the patient for degenerative disc disease of lumbar spine with lumbar radiculopathy symptoms, chronic sacroiliitis, bilateral hip pain, neck pain. Today he rates his pain a 6 out of 10. Patient denies any new trauma or injury. Patient does state that he had approximately 70 to 80% improvement following this injection and feels like it is still helping. He has been able to increase his activity with decreased pain symptoms and feels overall more functional. Patient was denied an MRI due to not having physical therapy. His Jalen has been reviewed and is appropriate. Review of Systems: General: No recent weight changes, no fever, no sleep disturbances Respiratory: No cough, no shortness of air, no recurring pulmonary infections Cardiovascular/peripheral vascular: No chest pain, no palpitations, no edema, no shortness of breath Gastrointestinal: No new onset incontinence, normal bowel movements reported Genitourinary: No new onset incontinence Musculoskeletal: Neck pain, low back pain Psychiatric: [Normal mood/affect] Neurological: [Denies weakness in extremities], [denies balance issues] Objective:: Physical Exam: General: Alert and oriented x3, no acute distress, pleasant and cooperative Lungs: Respirations even and unlabored, symmetrical chest expansion Eyes: PERRL Musculoskeletal: Flexion and extension of lumbar [spine] somewhat guarded secondary to pain, [antalgic gait noted] Neurological: Speech clear, no gross sensory deficit Assessment:: Degenerative disc disease of lumbar spine with lumbar radiculopathy symptoms, chronic sacroiliitis, bilateral hip pain, Plan:: I will order the patient physical therapy for evaluation and treatment of his low back and leg symptoms. Patient will return to clinic in 1 month for reevaluation of symptoms and plan of care. Patient has been instructed to contact the clinic with any concerns before the next appointment. Dr. Santana has reviewed this note and agrees with this plan of care. This note was dictated using voice recognition software and make contain errors or omissions. [facility] Disclaimer: The information contained in this section may have been updated after the patient was seen, as this information can be updated by other users. Medical History Acute pain of right knee Acute systolic CHF (congestive heart failure) Allergic rhinitis BPH (benign prostatic hyperplasia) Chronic sinusitis CKD (chronic kidney disease) Established with [facility] Stage 3a Contusion of right knee Deviated nasal septum Heart failure with reduced ejection fraction History of postnasal drip Hyperlipidemia Hypertension Urinary tract infection Urinary tract infection Surgical History H/O hernia repair x3 H/O prostate biopsy 06/2021 History of back surgery 06/2019-herniated disc History of cardiac cath ~2016 Family History Other Heart attack No significant family history Renal disease Stroke Social History Smoking Status: Former smoker years smoked: 33 how long ago did patient quit smokin years second hand exposure: No alcohol intake: former substance use type: denies use current occupational status: other Travel in the last 8 weeks: None household members: spouse housing: house current occupational exposures/hazards: No caffeine: Yes
== END 2023-07-17 23:59 ==
LOC: SC.PAIN 14:03
PROVIDERS: PCP Nurse Practitioner Family; Visit Provider Nurse Practitioner Family
DX: M51.16 Intervertebral disc disorders with radiculopathy, lumbar region (principal); M46.1 Sacroiliitis, not elsewhere classified; G89.29 Other chronic pain; M25.551 Pain in right hip; M25.552 Pain in left hip
CPT/HCPCS: 99212; G0463

== ENCOUNTER 2023-08-13 15:31 | Outpatient (POV) | payer BC, SELFPAY ==
[2023-08-13 15:49] VITALS: BP 104/70; PULSE 70; RESP 18; O2SAT 95; BMI 28.3
--- NOTE | 2023-08-13 16:04 | A.OFFVIS_ITS ---
[facility] Pain Management SOAP Note Subjective:: Patient is a pleasant 67-year-old male who presents today for follow-up. We are currently treating the patient for degenerative disc disease of lumbar spine with lumbar radiculopathy symptoms, chronic sacroiliitis, bilateral hip pain, neck pain. Today he rates his pain a 5 out of 10. Patient denies any new trauma or injury. He states that he continues to have the low back pain that does go into his lower extremities. Patient states that he did get a little improvement with the lumbar decompression that they did perform at physical therapy. He does state however that there have been several things that his insurance has denied and he is unsure if he can do this any additionally. He does have his last visit tomorrow. Patient states he was only approved for 5 visits. He was previously denied MRI due to not having recent physical therapy. Patient still would like to proceed forward with additional imaging. Patient's pain is still interfering with his ability perform activities of daily living such as cooking and cleaning. His Jalen has been reviewed and is appropriate. Review of Systems: General: No recent weight changes, no fever, no sleep disturbances Respiratory: No cough, no shortness of air, no recurring pulmonary infections Cardiovascular/peripheral vascular: No chest pain, no palpitations, no edema, no shortness of breath Gastrointestinal: No new onset incontinence, normal bowel movements reported Genitourinary: No new onset incontinence Musculoskeletal: Neck pain, low back pain Psychiatric: [Normal mood/affect] Neurological: [Denies weakness in extremities], [denies balance issues] Objective:: Physical Exam: General: Alert and oriented x3, no acute distress, pleasant and cooperative Lungs: Respirations even and unlabored, symmetrical chest expansion Eyes: PERRL Musculoskeletal: Flexion and extension of lumbar [spine] somewhat guarded secondary to pain, [antalgic gait noted] Neurological: Speech clear, no gross sensory deficit Assessment:: Degenerative disc disease of lumbar spine with lumbar radiculopathy symptoms, chronic sacroiliitis, bilateral hip pain, neck pain Plan:: Patient continues to have low back pain that has been unaltered by his current physical therapy. Patient is officially done with all of his insurance approved visit as of this week. We will resubmit for the lumbar MRI without contrast and follow-up after this imaging. Patient will return to clinic in 1 month for reevaluation of symptoms and plan of care. Patient has been instructed to contact the clinic with any concerns before the next appointment. Dr. Santana has reviewed this note and agrees with this plan of care. This note was dictated using voice recognition software and make contain errors or omissions. [facility] Disclaimer: The information contained in this section may have been updated after the p atient was seen, as this information can be updated by other users. Medical History Acute pain of right knee Acute systolic CHF (congestive heart failure) Allergic rhinitis BPH (benign prostatic hyperplasia) Chronic sinusitis CKD (chronic kidney disease) Established with [facility] Stage 3a Contusion of right knee Deviated nasal septum Heart failure with reduced ejection fraction History of postnasal drip Hyperlipidemia Hypertension Urinary tract infection Urinary tract infection Surgical History H/O hernia repair x3 H/O prostate biopsy 06/2021 History of back surgery 06/2019-herniated disc History of cardiac cath ~2016 Family History Other Heart attack No significant family history Renal disease Stroke Social History Smoking Status: Former smoker years smoked: 33 how long ago did patient quit smokin years second hand exposure: No alcohol intake: former substance use type: denies use current occupational status: other Travel in the last 8 weeks: None household members: spouse housing: house current occupational exposures/hazards: No caffeine: Yes
== END 2023-08-13 23:59 ==
LOC: SC.PAIN 15:31
PROVIDERS: PCP Nurse Practitioner Family; Visit Provider Nurse Practitioner Family
DX: M51.16 Intervertebral disc disorders with radiculopathy, lumbar region (principal); M46.1 Sacroiliitis, not elsewhere classified; G89.29 Other chronic pain; M25.551 Pain in right hip; M25.552 Pain in left hip
CPT/HCPCS: 99212; G0463

== ENCOUNTER 2023-08-24 17:30 | Outpatient (CLI) | payer BC, SELFPAY ==
[2023-08-24 16:44] LABS: Basophils # 0.1 K/mm3 (0-0.2); Basophils % 0.8 % (0.1-2.0); Eosinophils # 0.2 K/mm3 (0.0-0.4); Eosinophils % 2.2 % (0.1-12.0); Hematocrit 49.1 % (42.0-52.0); Lymphocytes # 1.8 K/mm3 (0.7-4.5); Lymphocytes % 21.8 % (10-50); Mean Corpuscular HGB Conc 32.5 g/dL (31.8-35.4); Mean Corpuscular Hemoglobin 31.3 pg (27.0-31.2); Mean Corpuscular Volume 96.3 fl (80-94); Mean Platelet Volume 8.6 fl (7.4-10.4); Monocytes # 0.6 K/mm3 (0.1-1.0); Monocytes % 7.5 % (1.7-9.3); Neutrophils # 5.5 K/mm3 (1.8-7.8); Neutrophils % 67.6 % (37.0-80.0); Platelet Count 143 K/mm3 (142-424); White Blood Count 8.1 K/mm3 (4.8-10.8)
[2023-08-24 17:09] LABS: Alanine Aminotransferase 26 U/L (12-78); Albumin/Globulin Ratio 1.6 (1.1-1.8); Alkaline Phosphatase 78 U/L (38-126); Aspartate Amino Transferase 29 U/L (17-59); Bilirubin,Total 0.5 mg/dl (0.2-1.3); Blood Urea Nitrogen 31 mg/dl (9-20); Calcium 8.8 mg/dl (8.4-10.2); Carbon Dioxide 24 mmol/L (22.0-30.0); Chloride 111 mmol/L (98-107); Chol/HDL Ratio 4.8 (1-3.5); Cholesterol 164 mg/dl (140-200); Estimated Glomerular Filt Rate 38 ml/min (>60); GFR (African American) 46 ML/MIN (>60); Globulin 2.5 g/dL (1.3-3.2); Glucose 85 mg/dl (74-100); HDL Cholesterol 34 mg/dl (40-60); Sodium 142 mmol/L (136-145); Total Protein,Serum 6.5 g/dl (6.3-8.2); Triglycerides 348 mg/dl (30-150); Uric Acid 5.1 mg/dl (3.5-8.5); VLDL Cholesterol 70 mg/dL (0-40)
[2023-08-24 17:20] LABS: Direct LDL Cholesterol 85.82 mg/dL (100-129)
[2023-08-24 17:39] LABS: Prostate Specific Ag, Diagnost 6.22 ng/ml (0.0-4.0); Thyroid Stimulating Hormone 1.13 uIU/mL (0.465-4.68)
== END 2023-08-24 23:59 ==
LOC: LAB.DROPOF 17:30
PROVIDERS: PCP Nurse Practitioner Family; Visit Provider Nurse Practitioner Family
DX: K63.5 Polyp of colon (principal); I12.9 Hypertensive chronic kidney disease with stage 1 through stage 4 chronic kidney disease, or unspecified chronic kidney disease; N18.31 Chronic kidney disease, stage 3a; E78.2 Mixed hyperlipidemia; N40.0 Benign prostatic hyperplasia without lower urinary tract symptoms; R97.20 Elevated prostate specific antigen [PSA]; M10.9 Gout, unspecified; Z87.891 Personal history of nicotine dependence
CPT/HCPCS: 80053; 80061; 84153; 84443; 84550; 85025

== ENCOUNTER 2023-09-14 14:41 | Outpatient (POV) | payer BC, SELFPAY ==
[2023-09-14 14:43] VITALS: BP 142/80; PULSE 72; RESP 18; O2SAT 95; BMI 28.3
--- NOTE | 2023-09-14 14:56 | EXP.PAIN.SOA ---
[facility] Pain Management SOAP Note Subjective:: Patient is a pleasant 67-year-old male who presents today for MRI denial. Patient rates his pain today a 2 out of 10. He denies any new trauma or injury. He does state that he ended up completing his original 5 visits that were approved by insurance for physical therapy. He does state that he has gotten some improvement but he still feels like there is something not right in his off in his low back. Patient states that he is getting ready to start his second set of 5 visits that have been approved by insurance. Patient does state that he feels like they have been dragging their feet or denying the MRI because his deductible is getting ready to restart in October. Patient states that he is planning on having 2 visits this week, 2 visits next week in the third week probably 1 visit. He does state that he will contact our office once he finishes these visits. His Jalen has been reviewed and is appropriate. Review of Systems: General: No recent weight changes, no fever, no sleep disturbances Respiratory: No cough, no shortness of air, no recurring pulmonary infections Cardiovascular/peripheral vascular: No chest pain, no palpitations, no edema, no shortness of breath Gastrointestinal: No new onset incontinence, normal bowel movements reported Genitourinary: No new onset incontinence Musculoskeletal: Low back pain Psychiatric: [Normal mood/affect] Neurological: [Denies weakness in extremities], [denies balance issues] Objective:: Physical Exam: General: Alert and oriented x3, no acute distress, pleasant and cooperative Lungs: Respirations even and unlabored, symmetrical chest expansion Eyes: PERRL Musculoskeletal: Flexion and extension of lumbar [spine] somewhat guarded secondary to pain, [antalgic gait noted] Neurological: Speech clear, no gross sensory deficit Assessment:: Degenerative disc disease of lumbar spine with lumbar radicular symptoms, chronic sacroiliitis, bilateral hip pain, neck pain Plan:: I have discussed with the patient once he completes his second set of 5 visits of physical therapy to reach out to our office so he can get in for our follow-up. We will plan on resubmitting for the lumbar MRI once he completes these visits. Patient agrees with this plan of care. He will contact our office at his convenience for his next follow-up. Patient has been instructed to contact the clinic with any concerns before the next appointment. Dr. Santana has reviewed this note and agrees with this plan of care. This note was dictated using voice recognition software and make contain errors or omissions. [facility] Disclaimer: The information contained in this section may have been updated after the patient was seen, as this information can be updated by other users. Medical History Chronic sinusitis History of postnasal drip Allergic rhinitis Deviated nasal septum Acute systolic CHF (congestive heart failure) Heart failure with reduced ejection fraction CKD (chronic kidney disease) Established with [facility] Stage 3a Contusion of right knee Acute pain of right knee Urinary tract infection BPH (benign prostatic hyperplasia) Hyperlipidemia Hypertension Urinary tract infection Surgical History H/O prostate biopsy 06/2021 History of back surgery 06/2019-herniated disc H/O hernia repair x3 History of cardiac cath ~2016 Family History Other Heart attack No significant family history Renal disease Stroke Social History Smoking Status: Former smoker years smoked: 33 how long ago did patient quit smokin years second hand exposure: No alcohol intake: former substance use type: denies use current occupational status: other Travel in the last 8 weeks: None household members: spouse housing: house current occupational exposures/hazards: No caffeine: Yes
== END 2023-09-14 23:59 ==
LOC: SC.PAIN 14:42
PROVIDERS: PCP Nurse Practitioner Family; Visit Provider Nurse Practitioner Family
DX: M51.16 Intervertebral disc disorders with radiculopathy, lumbar region (principal); M46.1 Sacroiliitis, not elsewhere classified; G89.29 Other chronic pain; M25.551 Pain in right hip; M25.552 Pain in left hip; M54.2 Cervicalgia
CPT/HCPCS: 99212; G0463

== ENCOUNTER 2023-09-17 17:00 | Outpatient (RCR) | payer BC, SELFPAY ==
--- NOTE | 2023-09-24 10:02 | HMH.RHREAS ---
Rehab Reassessment Rehab OP Re-assessment Start: 08/06/23 11:48 Freq: Status: Active Protocol: Document 09/17/23 17:01 LU (Rec: 09/24/23 10:02 LU [id number]) E-signed By Erwin Bro, PT Oswestry Index Section 1 Pain Intensity The pain comes and goes and is moderate Section 2 Personal Care (Washing,Dresing) my way of washing or dressing even though it causes some pain Section 3 Lifting I can lift heavy weights, but it gives me extra pain Section 4 Walking I cannot walk more than 1/2 mile without increasing pain Section 5 Sitting Pain prevents me from sitting for more than one hour Section 6 Standing I cannot stand more than 1 hour without increasing pain Section 7 Sleeping I get pain in bed, but it does not prevent me from sleeping well Section 8 Social Life Pain has no significant effect on my social life apart from limiting Section 9 Traveling I get extra pain while traveling, but it does not compel me to seek al Section 10 Changing Degreee of Pain My pain is neither getting better or worse Score and Risk Level Oswestry Sc 19 Oswestry Risk Level Moderate Disability Rehab Re-assessment Subjective Subjective Patient reports 40% improvement since start of care. Objective Objective Notes LS AROM: flx WNL; ext 12; SBR/ SBL WNL BLE WNL: WNL grossly Pain: 4/10 currently; 6/10 at worst over past week Neuro: no reports of radicular symptoms Assessment Progress Assessment Progressing as Expected Assessment Notes Patient would benefit from continuing with skilled PT interventions in order to address functional limitations with all standing/ambulatory/ bending/lifting activities. Patient goals met STG 2 Goals Not Met All others Revised Goals NA Plan Plan Continue with current POC. Frequency of Therapy 2x/week Duration of therapy 4 weeks Time and Billing Re-Eval Time 14 Re-Eval Billing Units 1 PHYSICIAN CERTIFICATION: I certify the specified therapy services for Andrzej Sue are required, authorized, and reviewed every 30 days.
== END 2023-09-17 18:00 | disposition home or self-care (01) ==
LOC: PT 17:00
PROVIDERS: Visit Provider Nurse Practitioner Family
DX: M54.50 Low back pain, unspecified (principal); M25.551 Pain in right hip; M25.552 Pain in left hip
CPT/HCPCS: 97010; 97012; 97014; 97110; 97163; 97164; 97530; G0283

== ENCOUNTER 2023-10-12 16:32 | Outpatient (CLI) | payer BC, SELFPAY ==
--- NOTE | 2023-10-12 16:33 | MR_ITS ---
FINAL REPORT CLINICAL HISTORY: Lumbar radiculopathy, chronic sacroiliitis. lbp. bilateral hip pain COMPARISON: 06/10/2019 FINDINGS: Multiplanar MR imaging of the lumbar spine was performed without contrast. On the sagittal T2-weighted images, there is abnormal decreased signal involving the L3-4, L4-5, and L5-S1 discs. The vertebrae are of normal height. There is minimal spondylolisthesis of L4 on L5. There is slightly inhomogeneous marrow signal noted in the lumbar spine and sacrum, that may represent red marrow conversion. L1-2: There is no significant canal stenosis or neural foraminal narrowing. L2-3: There is no significant canal stenosis or neural foraminal narrowing. L3-4: A small annular bulge is present with mild bilateral neural foraminal narrowing. L4-5: A small annular bulge is present with bilateral facet osteoarthropathy, and moderate bilateral neural foraminal narrowing, more prominent on the right than the left. L5-S1: A small annular bulge is present. There is no significant canal stenosis or neural foraminal narrowing. IMPRESSION: Multilevel annular bulges and neuroforaminal narrowing in the lower lumbar spine, most prominent at the L4-5 level. Reviewed, Interpreted and Dictated by Severino Leyva MD Transcribed by Genevieve Olvera Authenticated and . [facility]
== END 2023-10-12 23:59 | disposition home or self-care (01) ==
LOC: RAD 16:33
PROVIDERS: PCP Nurse Practitioner Family; Visit Provider Nurse Practitioner Family
DX: M51.36 Other intervertebral disc degeneration, lumbar region (principal); M46.1 Sacroiliitis, not elsewhere classified; M25.551 Pain in right hip; M25.552 Pain in left hip
CPT/HCPCS: 72148

== ENCOUNTER 2023-10-22 16:36 | Outpatient (CLI) | payer BC, SELFPAY ==
--- NOTE | 2023-10-22 16:40 | XR_ITS ---
PROCEDURE INFORMATION: Exam: XR Left Knee Exam date and time: 10/22/2023 4:41 PM Age: 68 years old Clinical indication: Pain; Knee; Left; Additional info: Left knee pain TECHNIQUE: Imaging protocol: Radiologic exam of the left knee. Views: 1 or 2 views. COMPARISON: CR XR FOOT LT MIN 3V 10/22/2023 4:41 PM FINDINGS: Bones/joints: The osseous structures appear intact with no evidence of acute fracture, dislocation, or malalignment. Joint spaces are preserved. No abnormal bone density or destructive lesions are noted. Soft tissues: Soft tissues appear unremarkable. IMPRESSION: At the time of imaging, there is no evidence for acute osseous abnormalities.
--- NOTE | 2023-10-22 16:40 | XR_ITS ---
PROCEDURE INFORMATION: Exam: XR Left Foot Exam date and time: 10/22/2023 4:41 PM Age: 68 years old Clinical indication: Pain; Foot; Left; Additional info: Left foot paint TECHNIQUE: Imaging protocol: Radiologic exam of the left foot. Views: 3 or more views. COMPARISON: CR XR FOOT WT BEARING LT 3V 03/19/2023 10:54 AM FINDINGS: Bones/joints: There is a hallux valgus deformity. There is a plantar calcaneal enthesophyte. The osseous structures appear intact with no evidence of acute fracture, dislocation, or malalignment. Joint spaces are preserved. No abnormal bone density or destructive lesions are noted. Soft tissues: Soft tissues appear unremarkable. IMPRESSION: At the time of imaging, there is no evidence for acute osseous abnormalities.
--- NOTE | 2023-10-22 16:40 | XR_ITS ---
PROCEDURE INFORMATION: Exam: XR Lumbosacral Spine Exam date and time: 10/22/2023 4:41 PM Age: 68 years old Clinical indication: Low back pain; Prior surgery; Surgery date: 6+ months; Surgery type: Herniated disk repair in 2019; Additional info: Lumbar pain TECHNIQUE: Imaging protocol: Radiologic exam of the lumbosacral spine. Views: 2 or 3 views. COMPARISON: MR LUMBAR SPINE WO CON 10/12/2023 4:24 PM FINDINGS: Bones/joints: There is mild lower lumbar degenerative disease with facet arthropathy and intervertebral disc space narrowing. No acute fracture or dislocation is identified. There is slight anterolisthesis of L4 on L5. Nonspecific lower thoracic wedge deformities without compression injury identified. Soft tissues: Unremarkable. Other findings: Prevertebral and paravertebral soft tissues appear unremarkable. IMPRESSION: Degenerative disease without acute injury identified.
== END 2023-10-22 23:59 | disposition home or self-care (01) ==
LOC: LAB.DROPOF 16:37
PROVIDERS: PCP Nurse Practitioner Family; Visit Provider Nurse Practitioner Family
DX: M79.672 Pain in left foot (principal); M25.562 Pain in left knee; M54.50 Low back pain, unspecified; N34.2 Other urethritis; R82.90 Unspecified abnormal findings in urine
CPT/HCPCS: 72100; 73560; 73630; 87086

== ENCOUNTER 2023-12-01 15:35 | Outpatient (CLI) | payer MEDICARE, SELFPAY ==
--- NOTE | 2023-12-01 15:42 | XR_ITS ---
FINAL REPORT CLINICAL HISTORY: left ankle pain FINDINGS: Left ankle Three views were obtained. There is no acute fracture or dislocation. There are mild degenerative changes. Small calcaneal spurs are identified. No soft tissue abnormality is identified. IMPRESSION: No acute process. Reviewed, Interpreted and Dictated by Camilo Mahmood III, MD Transcribed by Jigna Allen Authenticated and [facility]
[2023-12-01 16:12] LABS: Microscopic, Urine URINE MICROSCOPIC (MICROSCOPIC)
[2023-12-01 17:02] LABS: Basophils # 0.1 K/mm3 (0-0.2); Basophils % 0.6 % (0.1-2.0); Eosinophils # 0.2 K/mm3 (0.0-0.4); Eosinophils % 2.2 % (0.1-12.0); Hematocrit 49.5 % (42.0-52.0); Lymphocytes # 1.8 K/mm3 (0.7-4.5); Mean Corpuscular HGB Conc 34.3 g/dL (31.8-35.4); Mean Corpuscular Hemoglobin 32.2 pg (27.0-31.2); Mean Corpuscular Volume 93.9 fl (80-94); Mean Platelet Volume 8.8 fl (7.4-10.4); Monocytes # 0.5 K/mm3 (0.1-1.0); Monocytes % 5.9 % (1.7-9.3); Neutrophils # 5.8 K/mm3 (1.8-7.8); Neutrophils % 69.3 % (37.0-80.0); Platelet Count 134 K/mm3 (142-424); Red Blood Count 5.27 M/mm3 (4.60-6.20); Red Cell Distribution Width 14.1 % (11.5-17.5); White Blood Count 8.3 K/mm3 (4.8-10.8)
[2023-12-01 17:51] LABS: Albumin Level 4.3 g/dl (3.5-5.0); Anion Gap 11.5 mEq/L (5-15); Blood Urea Nitrogen 37 mg/dl (9-20); Calcium 8.9 mg/dl (8.4-10.2); Carbon Dioxide 20 mmol/L (22.0-30.0); Chloride 114 mmol/L (98-107); Estimated Glomerular Filt Rate 30 ml/min (>60); GFR (African American) 36 ML/MIN (>60); Glucose 103 mg/dl (74-100); Phosphorous 4.1 mg/dl (2.5-4.5); Potassium 4.5 mmoL/L (3.5-5.1); Sodium 141 mmol/L (136-145)
[2023-12-01 19:37] LABS: Creatinine,Urine Random 98 mg/dL (Not Estab.)
[2023-12-01 19:43] LABS: Appearance,Urine CLEAR (Clear); Bilirubin,Urine Negative (Negative); Blood, Urine Negative (Negative); Color,Urine YELLOW (Yellow); Glucose,Urine (UA) 2+ (Negative); Ketones,Urine Negative (Negative); Leukocyte Esterase,Urine Negative (Negative); Nitrate,Urine Negative (Negative); Protein,Urine Negative (Negative); Urobilinogen,Urine 0.2 EU/dl (0.2)
[2023-12-01 20:10] LABS: Hyaline Casts,Urine Occasional #/lpf (0); Squamous Epithelial Cell,Urine Occasional #/hpf (0-5)
== END 2023-12-01 23:59 | disposition home or self-care (01) ==
LOC: RAD 15:38
PROVIDERS: Student in an Organized Health Care Education/Training Program; PCP Nurse Practitioner Family; Visit Provider Nurse Practitioner
DX: M25.572 Pain in left ankle and joints of left foot (principal); N18.30 Chronic kidney disease, stage 3 unspecified
CPT/HCPCS: 36415; 73610; 80069; 81001; 82570; 84156; 85025

== ENCOUNTER 2023-12-25 12:39 | Outpatient (CLI) | payer MEDICARE, SELFPAY ==
--- NOTE | 2023-12-25 | CA_ITS ---
APPROVED REPORT EXAM: Comprehensive 2D, Doppler, and color-flow Echocardiogram Associate Professor Of Theology: Ghazala Navarrete RVT Ht: 6 ft 1 in Wt: 230lbs BSA: 2.28 BP: 122/70 mmHg Indications: ABN EKG,CHF,CM,HFrEF,HTN,HLD,EX SMOKER Echo Enhancing Agent Indication: Endocardial border delineation Agent(s) / Amount(s) Used: Definity 2 cc 2D Dimensions LA Volume 72.90 mL LA Volume Index 31.83 mL/m2 (M/F) 16-34 M-Mode Dimensions RVDd 2.99 cm (0.9-2.6) LA Diam 3.92 cm (1.9-4.0) LVDd 4.32 cm (3.5-5.7) LVDs 3.48 cm (3.5-5.7) IVSd 1.25 cm (0.6-1.1) PWd 0.62 cm (0.6-1.1) EF (Teich) 40.20% FS 19.40% EDV (Teich) 84.00 mL TAPSE 2.65 (<1.7) ESV (Teich) 50.20 mL LV Diastology E Decel Time 300 (160-240 msec) E/A Ratio 0.7 Aortic Valve PARISH Index 1.71 cm2/m2 AoV Peak Cristiano. 102.0 (50-130 cm/s) AO Peak GR. 4.10 mmHg AO Mean GR. 2.00 (<5 mmHg) AO VTI 21.7 (18-25 cm) PARISH (VTI) 4.01 (2.5-4.5 cm2) Mitral Valve MV E Max Cristiano. 42.0 (40-130 cm/s) MV A Velocity 63.0 (40-130 cm/s) E/A Ratio 0.67 MV PHT 88.0 ms Pulmonary Valve PV Peak Velocity 77.0 (50-150 cm/s) Tricuspid Valve TR P. Velocity 175.00 cm/s RAP Estimate 10.00 mmHg RVSP 22.30 mmHg Left Ventricle The left ventricle is normal size. Left ventricular systolic function is moderately reduced. There is increased LV wall thickness. The septum is asynchronous. The there is severe hypokinesis of the anteroseptal and inferoseptal LV mckeon. Grade 2 diastolic dysfunction is present. No left ventricle thrombus noted on this study. LVEF is 35-40%. Right Ventricle Right ventricle is mildly dilated. The right ventricular systolic function is normal. Atria Left atrium is mildly dilated. Right atrium is mildly dilated. There is no Doppler evidence of interatrial shunt. Aortic Valve The aortic valve is mildly thickened. There is no aortic valvular stenosis. Trace aortic regurgitation is present. Mitral Valve The mitral valve is normal in structure. No evidence of mitral valve stenosis. Mild mitral regurgitation. Tricuspid Valve The tricuspid valve leaflets are thin and pliable. Trace tricuspid regurgitation. There is insufficient TR jet to estimate RVSP. Pulmonic Valve The pulmonary valve is normal in structure. Trace pulmonic regurgitation. Great Vessels The aortic root is normal in size. The ascending aorta is mildly dilated, measuring 4.3 cm in diameter. Other Information Study Quality: Technically Difficult Conclusion Technically difficult study due to poor acoustic windows. Ultrasound enhancing agent was administered for better LV endocardial border delineation. Moderate reduction global LV systolic function (LVEF 35-40%). Severe hypokinesis of the anteroseptal and inferoseptal LV mckeon. Grade 2 diastolic dysfunction. Mild RV dilation with normal RV function. Biatrial dilation. Mild MR. Ascending aorta is mildly dilated, measuring 4.3 cm in diameter. Correlation with recent or new CT a chest is suggested. If clinically feasible, further evaluation with cardiac MRI (cardiomyopathy protocol) is suggested to accurately determine LVEF. Electronically signed by : Shama Quinteros MD 12/28/2023 00:17:46
[2023-12-25] MEDS: DEFINITY US ECHO CONTRAST 2ML INJ 2 MG IV (13:47)
== END 2023-12-25 23:59 | disposition home or self-care (01) ==
LOC: RT 12:40
PROVIDERS: PCP Nurse Practitioner Family; Visit Provider Internal Medicine
DX: I42.8 Other cardiomyopathies (principal); R94.01 Abnormal electroencephalogram [EEG]; I50.20 Unspecified systolic (congestive) heart failure
CPT/HCPCS: 93306; Q9957

== ENCOUNTER 2024-01-05 09:55 | Emergency (ER) | payer MEDICARE, SELFPAY ==
[2024-01-05] VITALS (13 sets, daily range): BP systolic 105–139; BP diastolic 70–87; PULSE 48–73; RESP 20; TEMP 36.8; O2SAT 95–97; BMI 28.3
--- NOTE | 2024-01-05 10:21 | CT_ITS ---
FINAL REPORT TECHNIQUE: Thin section axial CT with IV contrast supplemented with multiplanar reconstruction under CT angiogram protocol. 3-D reconstructions were performed. This study was performed with techniques to keep radiation doses as low as reasonably achievable (ALARA). Individualized dose reduction techniques using automated exposure control or adjustment of mA and/or kV according to the patient''s size were employed. CLINICAL HISTORY: dizzy spells, pressure in head FINDINGS: No aneurysm is seen. Major intracranial vessels are patent without significant stenosis. IMPRESSION: No evidence of aneurysm or major branch occlusion. Reviewed, Interpreted and Dictated by Camilo Mahmood III, MD Transcribed by Jigna Allen Authenticated and [facility]
--- NOTE | 2024-01-05 10:21 | CT_ITS ---
FINAL REPORT CLINICAL HISTORY: dizzy spells, pressure in head FINDINGS: Axial images of the head were obtained without contrast. Coronal reformatted images were also obtained.This study was performed with techniques to keep radiation doses as low as reasonably achievable (ALARA). Individualized dose reduction techniques using automated exposure control or adjustment of mA and/or kV according to the patient's size were employed. There is no evidence of intracranial hemorrhage or mass. The ventricular size is within normal limits. There is no evidence of shift of the midline structures. No abnormal extra axial fluid collection is identified. No skull abnormality is seen on the bone window images. IMPRESSION: No acute intracranial abnormality. Reviewed, Interpreted and Dictated by Camilo Mahmood III, MD Transcribed by Jigna Allen Authenticated and [facility]
--- NOTE | 2024-01-05 10:21 | CT_ITS ---
FINAL REPORT TECHNIQUE: Thin section axial CT with IV contrast supplemented with multiplanar reconstruction under CT angiogram protocol. This study was performed with techniques to keep radiation doses as low as reasonably achievable (ALARA). Individualized dose reduction techniques using automated exposure control or adjustment of mA and/or kV according to the patient''s size were employed. NASCET criteria was utilized during interpretation. CLINICAL HISTORY: dizzy spells, pressure in head FINDINGS: Aortic arch: Arch shows no significant narrowing. Great vessel origins are widely patent. Right carotid: There is mild plaque at the carotid bulb without evidence of stenosis. Left carotid: There is mild plaque at the carotid bulb without evidence of stenosis. Vertebral: Left vertebral artery is dominant. No significant stenosis is present. IMPRESSION: Mild plaque at the carotid bulbs bilaterally without evidence of stenosis. Reviewed, Interpreted and Dictated by Camilo Mahmood III, MD Transcribed by Jigna Allen Authenticated and [facility]
--- NOTE | 2024-01-05 10:23 | ED_ITS ---
Discharge Plan Disposition Patient Disposition: Home, Self-Care Prescriptions Prescriptions: No Action levocetirizine 5 mg tablet 5 mg PO DAILY Entresto 24-26 mg tablet 1 tab PO BID Qty: 60 2RF Entresto 24-26 mg tablet 0RF allopurinol 100 mg tablet 100 mg PO DAILY atorvastatin 10 mg tablet 10 mg PO DAILY Jardiance 10 mg tablet 10 mg PO DAILY omeprazole 40 mg capsule,delayed release(DR/EC) 40 mg PO DAILY lidocaine 4 % adhesive patch,medicated 1 patch topical BID PRN (Reason: pain) Qty: 30 0RF bisoprolol fumarate 5 mg tablet 2.5 mg PO DAILY Qty: 30 2RF Referrals Follow up/Referrals: Hemalatha Pritchard APRN [Primary Care Provider] - See instructions Activity Restrictions/Add. Instructions Additional Instructions/Restrictions: Per cardoiology recommendation, please follow up in the cardiology clinic nect week. Cardiology is reducing your Bisoprolol to 2.5 mg daily. If you have any new or worsening symptoms, please return to the Emergency Department. Clinical Impressions Clinical Impression: Bradycardia Print Language Print Language: Albanian Discharge ED Provider: Evin Mejia General Adult HPI General Chief complaint: Dizziness Stated complaint: dizzy Time Seen by Provider: 01/05/24 10:09 History of Present Illness HPI narrative: 68-year-old male presents to the ER for concerns of dizzy spells. Patient reports he has a history of heart failure and recently his Entresto dose was lowered because his kidney function was falling. Patient reports since they started decreasing his Entresto he has been having dizzy spells. He describes them as an onset of pressure behind his eyes into his sinuses. He states he feels lightheaded but does not describe room spinning. He states he can feel them occasionally happen when he is sitting, but they most commonly occur when he is active. He denies any association with chest pain or shortness of breath, he denies any nausea, vomiting, does report increased loose stools but no diarrhea, bloody stools, or melena. Patient denies any new peripheral edema. He reports recent echo demonstrated 35 to 40% EF. He discussed his symptoms with the cardiology office today over the phone who referred him to the ER for evaluation. No other associated symptoms. Related Data Home Medications ?Medication ?Instructions ?Recorded ?Confirmed allopurinol 100 mg tablet 100 mg PO DAILY Gout 10/22/23 12/17/23 atorvastatin 10 mg tablet 10 mg PO DAILY 10/22/23 12/17/23 empagliflozin 10 mg tablet 10 mg PO DAILY 10/22/23 12/17/23 (Jardiance) omeprazole 40 mg capsule,delayed 40 mg PO DAILY 10/22/23 12/17/23 release levocetirizine 5 mg tablet 5 mg PO DAILY 12/17/23 12/17/23 Previous Rx's ?Medication ?Instructions ?Recorded lidocaine 4 % topical patch 1 patch topical BID PRN pain #30 ea 10/22/23 sacubitril 24 mg-valsartan 26 mg 1 tab PO BID #60 tabs 12/17/23 tablet (Entresto) bisoprolol fumarate 5 mg tablet 2.5 mg (1/2 x 5 mg) PO DAILY #30 01/05/24 tabs Allergies Allergy/AdvReac Type Severity Reaction Status Date / Time Iodinated Contrast Media AdvReac Intermediate WAS TOLD Verified 12/17/23 14:55 HARMFUL TO KIDNEYS [facility] Disclaimer: The information contained in this section may have been updated after the patient was seen, as this information can be updated by other users. Medical History (Updated 01/05/24 @ 15:21 by Carissa Peña RN) Abnormal ECG Impacted cerumen of both ears Acute pain of left foot Chronic sinusitis History of postnasal drip Allergic rhinitis Deviated nasal septum Acute systolic CHF (congestive heart failure) Heart failure with reduced ejection fraction CKD (chronic kidney disease) Contusion of right knee Acute pain of right knee Urinary tract infection BPH (benign prostatic hyperplasia) Hyperlipidemia Hypertension Urinary tract infection Surgical History H/O prostate biopsy History of back surgery H/O hernia repair History of cardiac cath Family History Other Heart attack No significant family history Renal disease Stroke Social History Smoking Status: Never smoker years smoked: 33 how long ago did patient quit smokin years second hand exposure: No alcohol intake: former substance use type: denies use current occupational status: other Travel in the last 8 weeks: None household members: spouse housing: house current occupational exposures/hazards: No caffeine: Yes ROS Obtained: Yes All systems reviewed & no additional complaints except as documented See HPI Physical Exam General General appearance: alert and in no apparent distress Head Head exam: atraumatic and normocephalic Eye Eye exam: Present PERRL and EOMI; Absent nystagmus ENT ENT exam: Present mucous membranes moist Neck Neck exam: Present normal inspection and full ROM Chest Chest inspection: Present symmetric chest wall rise Respiratory Respiratory exam: Present normal lung sounds bilaterally; Absent respiratory distress, wheezes or stridor Cardiovascular Cardiovascular exam: Present regular rate and normal rhythm Abdominal Exam Abdominal exam: Present soft; Absent distention or tenderness Extremities Exam Extremities exam: Present full ROM; Absent tenderness or edema Neurological Exam Neurological exam: Present alert, oriented X3, CN II-XII intact, normal gait and other (Normal [id number]-[id number] and gkvb-[id number]); Absent motor sensory deficit Psychiatric Psychiatric exam: Present normal affect and normal mood Skin Skin exam: Present warm and dry Medical Decision Making Medical Records Medical records reviewed: Yes I reviewed the patient's medical records. MR Comment: Most recent cardiology note demonstrates patient was having weight gain, has HFrEF with a EF of approximately 40%, stable diastolic dysfunction, decreased Entresto. Jalen Inquiry Pt receiving controlled substance: No Vital Signs: 01/05/24 09:59 01/05/24 10:22 01/05/24 10:30 Temperature Temperature Source Pulse Rate 67 61 Pulse Rate [Left Radial] Pulse Rate [Orthostatic Lying Right Radial] 61 Pulse Rate [Orthostatic Sitting Right Radial] 61 Pulse Rate [Orthostatic Standing Right Radial] 66 Respiratory Rate Blood Pressure 139/80 123/85 Blood Pressure [Orthostatic Lying Right Arm] 123/85 Blood Pressure [Orthostatic Sitting Right Arm] 119/83 Blood Pressure [Orthostatic Standing Right Arm] 117/77 Blood Pressure [Right Arm] Blood Pressure Mean Blood Pressure Mean [Right Arm] 02 Sat by Pulse Oximetry 97 95 Oxygen Delivery Method 01/05/24 10:32 01/05/24 10:43 01/05/24 10:55 Temperature 98.3 F Temperature Source Oral Pulse Rate 63 58 L Pulse Rate [Left Radial] 73 Pulse Rate [Orthostatic Lying Right Radial] Pulse Rate [Orthostatic Sitting Right Radial] Pulse Rate [Orthostatic Standing Right Radial] Respiratory Rate 20 Blood Pressure 119/83 117/77 Blood Pressure [Orthostatic Lying Right Arm] Blood Pressure [Orthostatic Sitting Right Arm] Blood Pressure [Orthostatic Standing Right Arm] Blood Pressure [Right Arm] 139/80 Blood Pressure Mean Blood Pressure Mean [Right Arm] 99 02 Sat by Pulse Oximetry 97 95 96 Oxygen Delivery Method Room Air 01/05/24 11:00 01/05/24 11:30 01/05/24 12:02 Temperature Temperature Source Pulse Rate 54 L 63 Pulse Rate [Left Radial] Pulse Rate [Orthostatic Lying Right Radial] Pulse Rate [Orthostatic Sitting Right Radial] Pulse Rate [Orthostatic Standing Right Radial] Respiratory Rate Blood Pressure 111/70 105/71 L 110/70 Blood Pressure [Orthostatic Lying Right Arm] Blood Pressure [Orthostatic Sitting Right Arm] Blood Pressure [Orthostatic Standing Right Arm] Blood Pressure [Right Arm] Blood Pressure Mean 83 Blood Pressure Mean [Right Arm] 02 Sat by Pulse Oximetry 95 96 Oxygen Delivery Method 01/05/24 12:31 01/05/24 13:01 01/05/24 13:30 Temperature Temperature Source Pulse Rate 48 L 52 L 49 L Pulse Rate [Left Radial] Pulse Rate [Orthostatic Lying Right Radial] Pulse Rate [Orthostatic Sitting Right Radial] Pulse Rate [Orthostatic Standing Right Radial] Respiratory Rate Blood Pressure 117/73 112/79 120/78 Blood Pressure [Orthostatic Lying Right Arm] Blood Pressure [Orthostatic Sitting Right Arm] Blood Pressure [Orthostatic Standing Right Arm] Blood Pressure [Right Arm] Blood Pressure Mean Blood Pressure Mean [Right Arm] 02 Sat by Pulse Oximetry 96 96 96 Oxygen Delivery Method Room Air Room Air Room Air 01/05/24 15:19 Temperature 98.3 F Temperature Source Pulse Rate 52 L Pulse Rate [Left Radial] Pulse Rate [Orthostatic Lying Right Radial] Pulse Rate [Orthostatic Sitting Right Radial] Pulse Rate [Orthostatic Standing Right Radial] Respiratory Rate 20 Blood Pressure 138/87 Blood Pressure [Orthostatic Lying Right Arm] Blood Pressure [Orthostatic Sitting Right Arm] Blood Pressure [Orthostatic Standing Right Arm] Blood Pressure [Right Arm] Blood Pressure Mean Blood Pressure Mean [Right Arm] 02 Sat by Pulse Oximetry Oxygen Delivery Method Lab Data Lab Results 01/05/24 10:41: WBC 8.1, RBC 5.30, Hgb 16.7, Hct 51.8, MCV 97.6 H, MCH 31.4 H, MCHC 32.2, RDW 14.6, Plt Count 141 L, MPV 8.8, Neut % (Auto) 72.9, Lymph % (Auto) 17.7, [place] % (Auto) 7.1, Eos % (Auto) 1.7, Baso % (Auto) 0.6, Neut # (Auto) 5.9, Lymph # (Auto) 1.4, [place] # (Auto) 0.6, Eos # (Auto) 0.1, Baso # (Auto) 0.1, PT 10.8, INR 0.96, Sodium 139, Potassium 4.2, Chloride 112 H, Carbon Dioxide 23, Anion Gap 8.2, BUN 26 H, Creatinine 1.60 H, Estimated Creat Clear 63, Estimated GFR 43 L, Est GFR ( Amer) 53 L, Glucose 106 H, Calcium 8.1 L, Phosphorus 3.6, Magnesium 1.6, Total Bilirubin 0.8, AST 26, ALT 25, Alkaline Phosphatase 76, Troponin I < 0.01, NT-Pro-B Natriuret Pep 161 H, Total Protein 6.4, Albumin 3.9, Globulin 2.5, Albumin/Globulin Ratio 1.6 01/05/24 13:54: Troponin I < 0.01 01/05/24 10:41 01/05/24 10:41 Orders (Tests/Meds): ED MEDICATIONS Discontinued Medications Generic Name Dose Route Start Last Admin Trade Name Freq PRN Reason Stop Dose Admin Lactated Ringer's 500 mls @ 999 mls/hr 01/05/24 10:22 01/05/24 10:45 Lactated Ringer's 500ml IV 01/05/24 10:52 999 mls/hr .Q31M ONE Administration Iopamidol 80 ml 01/05/24 12:04 01/05/24 12:05 Iopamidol-370 (76%);100ml Bottle IV 01/05/24 12:05 80 ml ONCE ONE Administration Sodium Chloride 10 ml 01/05/24 12:04 01/05/24 12:05 Sodium Chloride 0.9% 10ml Syr (Rad Only) IV 01/05/24 12:05 10 ml ONCE ONE Administration Sodium Chloride 50 ml 01/05/24 12:04 01/05/24 12:05 0.9 % Sodium Chloride 50 Ml Vial IV 01/05/24 12:05 50 ml ONCE ONE Administration ORDERS Category Date Time Status CT angio head Stat Cat Scan 01/05/24 10:[address] angio neck Stat Cat Scan 01/05/24 10:[address] head/brain wo con Stat Cat Scan 01/05/24 10:21 Completed CA 2 week event monitor Routine Exams 01/05/24 Completed CXR --portable [XR chest portable] Stat Exams 01/05/24 10:26 Completed POCUS Point of Care (ER Only) Stat Exams 01/05/24 10:21 Completed BNP [NT Pro Brain Natriuretic Pep.] Stat Lab 01/05/24 10:41 Completed CBC w/Auto Diff [Complete Blood Count Auto Diff] Stat Lab 01/05/24 10:41 Completed CMP [Comprehensive Metabolic Panel] Stat Lab 01/05/24 10:41 Completed Magnesium Stat Lab 01/05/24 10:41 Completed PT INR [Prothrombin Time INR] Stat Lab 01/05/24 10:41 Completed Phosphorous Stat Lab 01/05/24 10:41 Completed Trop I [Troponin I] Stat Lab 01/05/24 10:41 Completed Troponin I Q3H Lab 01/05/24 13:54 Completed Medical Decision Narrative: In summary, this 68-year-old male presents to the emergency department today with lightheadedness. On initial evaluation patient is hemodynamically stable, afebrile, GCS 15, no localizing neurologic deficits, no cerebellar symptoms, cardiopulmonary exam reassuring, no peripheral edema, no nystagmus. Differential diagnosis includes but is not limited to ACS, heart failure, stroke, stenosis, electrolyte abnormality, organ dysfunction. Based on these concerns, I ordered serum labs, CT imaging, [id number] ultrasound, cardiac workup. ECG personally interpreted demonstrates normal sinus rhythm, rate 61, normal MS and QTc, normal axis, no STEMI. Patient received IV fluids for treatment. Labs personally interpreted demonstrate no leukocytosis or anemia, mild thrombocytopenia, improved from previous, patient has kidney dysfunction that is improved from prior, initial troponin undetectably low at less than 0.01, BNP 161, slightly elevated above normal but nonactionable, nonspecific at this time. Repeat troponin pending. Chest x-ray personally interpreted demonstrates findings consistent with atelectasis, see radiology read for final interpretation. Hqkhq-[id number] ultrasound personally performed and interpreted demonstrates mildly reduced ejection fraction, however overall there is no wall motion abnormality, no effusion, no tamponade. See procedure note for details. I consulted cardiology to evaluate the patient for his findings of lightheadedness since he has been consistently bradycardic in the ER which could be contributing. They have evaluated the patient and are recommending a mechanical commissioning engineer, they will be adjusting his medications, and following up with him outpatient. Patient is comfortable with this plan and appropriate for discharge at this time. Patient was given instructions on symptomatic management, follow up instructions, and return precautions for the emergency department. Patient indicated understanding and was discharged in stable condition. Procedures Miscellaneous Procedure Procedure Performed: Limited Cardiac Ultrasound Indication: Lightheadedness Identified cardiac views: [-Cardiac parasternal long axis] [-Cardiac parasternal short axis] [-Cardiac apical four-chamber] Findings: Cardiac activity present with no gross wall motion abnormality, no pericardial effusion, no right heart strain. On gross examination, EF is mildly reduced. Not quantified. Impression: -[From above] Images were saved to permanent archive The study was technically adequate CPT: 34354 This study was performed by me, and I personally interpreted all images/videos. Based on my clinical judgement, these images were adequate and did not necessitate further imaging. Critical Care Critical Care Time Critical Care Time: No
--- NOTE | 2024-01-05 10:26 | XR_ITS ---
FINAL REPORT CLINICAL HISTORY: lightheaded COMPARISON: 12/01/2022 FINDINGS: SINGLE-VIEW CHEST The heart size is normal. The mediastinum is normal. There are mild bibasilar opacities, favor atelectasis or scar. There is no pneumothorax. IMPRESSION: Bibasilar atelectasis or scar. Reviewed, Interpreted and Dictated by Camilo Mahmood III, MD Transcribed by Jigna Allen Authenticated and [facility]
--- NOTE | 2024-01-05 10:26 | ECG_ITS ---
APPROVED REPORT Exam: Resting ECG HR:61 bpm ECG Measurements Heart Rate 61 AXES RI 197 P 23 QRSd 101 QRS 31 QT 431 T 45 QTc 435 Conclusion SINUS RHYTHM WITH SINUS ARRHYTHMIA Nonspecific slight T wave change in lead V1, no STEMI Electronically signed by : RORO LEAHY, 01/06/2024 07:11:26
[2024-01-05] MEDS: RINGERS SOLUTION,LACTATED 500 ML 999 ML IV (10:45)
--- NOTE | 2024-01-05 10:57 | PC.NURSE ---
PT PROVIDED TV REMOTE AND WARM BLANKET, CALL LIGHT WITHIN REACH. NO NEEDS AT THIS TIME
[2024-01-05 10:58] LABS: Magnesium 1.6 mg/dl (1.6-2.3); Phosphorous 3.6 mg/dl (2.5-4.5)
[2024-01-05 11:03] LABS: Albumin Level 3.9 g/dl (3.5-5.0); Chloride 112 mmol/L (98-107); INR 0.96 (0.9-1.1); Potassium 4.2 mmoL/L (3.5-5.1); Prothrombin Time 10.8 seconds (10.1-12.5); Sodium 139 mmol/L (136-145)
[2024-01-05 11:06] LABS: Alanine Aminotransferase 25 U/L (12-78); Albumin/Globulin Ratio 1.6 (1.1-1.8); Alkaline Phosphatase 76 U/L (38-126); Anion Gap 8.2 mEq/L (5-15); Aspartate Amino Transferase 26 U/L (17-59); Bilirubin,Total 0.8 mg/dl (0.2-1.3); Blood Urea Nitrogen 26 mg/dl (9-20); Carbon Dioxide 23 mmol/L (22.0-30.0); Creatinine Clearance Estimated 63 mL/min (50-200); Estimated Glomerular Filt Rate 43 ml/min (>60); GFR (African American) 53 ML/MIN (>60); Globulin 2.5 g/dL (1.3-3.2); Glucose 106 mg/dl (74-100); Total Protein,Serum 6.4 g/dl (6.3-8.2)
[2024-01-05 11:07] LABS: Calcium 8.1 mg/dl (8.4-10.2)
[2024-01-05 11:08] LABS: NT Pro Brain Natriuretic Pep. 161 pg/mL (0-125)
[2024-01-05 11:11] LABS: Troponin I < 0.01 ng/ml (0.00-0.034)
[2024-01-05 11:46] LABS: Basophils # 0.1 K/mm3 (0-0.2); Basophils % 0.6 % (0.1-2.0); Eosinophils # 0.1 K/mm3 (0.0-0.4); Eosinophils % 1.7 % (0.1-12.0); Hematocrit 51.8 % (42.0-52.0); Hemoglobin 16.7 g/dL (14.1-18.0); Lymphocytes # 1.4 K/mm3 (0.7-4.5); Lymphocytes % 17.7 % (10-50); Mean Corpuscular HGB Conc 32.2 g/dL (31.8-35.4); Mean Corpuscular Hemoglobin 31.4 pg (27.0-31.2); Mean Corpuscular Volume 97.6 fl (80-94); Mean Platelet Volume 8.8 fl (7.4-10.4); Monocytes # 0.6 K/mm3 (0.1-1.0); Monocytes % 7.1 % (1.7-9.3); Neutrophils # 5.9 K/mm3 (1.8-7.8); Neutrophils % 72.9 % (37.0-80.0); Platelet Count 141 K/mm3 (142-424); Red Cell Distribution Width 14.6 % (11.5-17.5); White Blood Count 8.1 K/mm3 (4.8-10.8)
--- NOTE | 2024-01-05 12:02 | PC.NURSE ---
RETURNED FROM CT
[2024-01-05] MEDS: 0.9 % SODIUM CHLORIDE 50 ML VIAL IV (12:05)
[2024-01-05] MEDS: SODIUM CHLORIDE 0.9% 10ML SYR (RAD ONLY) 10 ML IV (12:05)
[2024-01-05] MEDS: IOPAMIDOL-370 (76%);100ML BOTTLE 80 ML IV (12:05)
--- NOTE | 2024-01-05 12:56 | PC.NURSE ---
PT RETURNED FROM CT
--- NOTE | 2024-01-05 14:01 | PC.NURSE ---
rounded on pt no needs at this time
--- NOTE | 2024-01-05 14:07 | PC.NURSE ---
CARDIOLOGY NOTIFIED OF CONSULT
--- NOTE | 2024-01-05 14:28 | PC.NURSE ---
CARDIOLOGY AT BEDSIDE
--- NOTE | 2024-01-05 14:29 | PC.NURSE ---
provided pt and with chicken salad sandwich's two bags of chips and two mt dews
--- NOTE | 2024-01-05 14:40 | EXP.CARD.CON ---
History of Present Illness History of Present Illness Consult date: 01/05/24 Requesting physician: Evin Mejia Chief complaint: dizziness, bradycardia Additional Medical History:: 1. Nonischemic cardiomyopathy, improved with GDMT, 2022 A. EF improved from 25-30 to 40% x 03/04/23 B. Echocardiogram, 01-15, EF 35-40%, grade 2 DD. 2. Normal coronaries by cardiac catheterization, 11/2022 3. Hypertension 4. Hyperlipidemia 5. CKD, stage III with baseline creatinine 1.6 and GFR 43, 01/05/2024 6. Bradycardia felt secondary to beta-suly A. Symptomatic, 01/05/2024 History of present illness: 68-year-old white male presented to the emergency department for concerns of dizzy spells. Known to be on goal-directed medical therapy for nonischemic cardiomyopathy from last year which included beta-suly therapy. He has felt lightheaded at times but denies any syncopal episodes. Recent echocardiogram shows sustained improved EF at 35-40%. Initial workup in the ER unremarkable. Cardiology consulted for further evaluation and recommendations. [facility] Disclaimer: The information contained in this section may have been updated after the patient was seen, as this information can be updated by other users. Medical History (Updated 01/05/24 @ 14:48 by MARI Valadez) Abnormal ECG Impacted cerumen of both ears Acute pain of left foot Chronic sinusitis History of postnasal drip Allergic rhinitis Deviated nasal septum Acute systolic CHF (congestive heart failure) Heart failure with reduced ejection fraction CKD (chronic kidney disease) Contusion of right knee Acute pain of right knee Urinary tract infection BPH (benign prostatic hyperplasia) Hyperlipidemia Hypertension Urinary tract infection Surgical History H/O prostate biopsy History of back surgery H/O hernia repair History of cardiac cath Family History Other Heart attack No significant family history Renal disease Stroke Social History Smoking Status: Never smoker years smoked: 33 how long ago did patient quit smokin years second hand exposure: No alcohol intake: former substance use type: denies use current occupational status: other Travel in the last 8 weeks: None household members: spouse housing: house current occupational exposures/hazards: No caffeine: Yes Review of Systems Review of Systems Review of systems:: pertinent systems reviewed and negative unless documented below *Cardiovascular Cardiovascular: Denies chest pain and Denies dyspnea *Respiratory Respiratory: Denies cough and Denies dyspnea Exam Data for Last 24 hours Vital signs and Labs for Last 24 Hours: Temp Pulse Resp BP Pulse Ox O2 Del Method 98.3 F 49 L 20 120/78 96 Room Air 01/05/24 10:32 01/05/24 13:30 01/05/24 10:32 01/05/24 13:30 01/05/24 13:30 01/05/24 13:30 Laboratory Results - last 24 hr 01/05/24 10:41: WBC 8.1, RBC 5.30, Hgb 16.7, Hct 51.8, MCV 97.6 H, MCH 31.4 H, MCHC 32.2, RDW 14.6, Plt Count 141 L, MPV 8.8, Neut % (Auto) 72.9, Lymph % (Auto) 17.7, [place] % (Auto) 7.1, Eos % (Auto) 1.7, Baso % (Auto) 0.6, Neut # (Auto) 5.9, Lymph # (Auto) 1.4, [place] # (Auto) 0.6, Eos # (Auto) 0.1, Baso # (Auto) 0.1, PT 10.8, INR 0.96, Sodium 139, Potassium 4.2, Chloride 112 H, Carbon Dioxide 23, Anion Gap 8.2, BUN 26 H, Creatinine 1.60 H, Estimated Creat Clear 63, Estimated GFR 43 L, Est GFR ( Amer) 53 L, Glucose 106 H, Calcium 8.1 L, Phosphorus 3.6, Magnesium 1.6, Total Bilirubin 0.8, AST 26, ALT 25, Alkaline Phosphatase 76, Troponin I < 0.01, NT-Pro-B Natriuret Pep 161 H, Total Protein 6.4, Albumin 3.9, Globulin 2.5, Albumin/Globulin Ratio 1.6 I & O for Last 24 hours: Intake & Output 01/03/24 01/04/24 01/05/24 01/06/24 11:59 11:59 11:59 11:59 Weight 215 lb Constitutional Constitutional: no acute distress *Routine Respiratory Exam Respiratory: Present CTA bilaterally *Routine Cardiovascular Exam Cardiovascular: Present RRR; Absent murmur, gallop or rubs *Routine Extremities Exam Extremities: Absent edema *Routine Neurological Exam Neurological: Present alert, oriented X3 and CN II-XII intact Meds Home Medications and Allergies Home Medications ?Medication ?Instructions ?Recorded ?Confirmed ?Type bisoprolol fumarate 10 mg tablet 10 mg PO DAILY #90 tabs 02/27/23 12/17/23 Rx allopurinol 100 mg tablet 100 mg PO DAILY Gout 10/22/23 12/17/23 History atorvastatin 10 mg tablet 10 mg PO DAILY 10/22/23 12/17/23 History empagliflozin 10 mg tablet 10 mg PO DAILY 10/22/23 12/17/23 History (Jardiance) lidocaine 4 % topical patch 1 patch topical BID PRN pain #30 ea 10/22/23 12/17/23 Rx omeprazole 40 mg capsule,delayed 40 mg PO DAILY 10/22/23 12/17/23 History release levocetirizine 5 mg tablet 5 mg PO DAILY 12/17/23 12/17/23 History sacubitril 24 mg-valsartan 26 mg 1 tab PO BID #60 tabs 12/17/23 12/17/23 Rx tablet (Entresto) New Prescriptions to Start Prescriptions: Allergies Allergy/AdvReac Type Severity Reaction Status Date / Time Iodinated Contrast Media AdvReac Intermediate WAS TOLD Verified 12/17/23 14:55 HARMFUL TO KIDNEYS Assessment and Plan *Assessment and plan (1) Dizziness: Status: Acute Category: Medical Code(s): R42 - Dizziness and giddiness (2) Bradycardia, drug induced: Status: Acute Category: Medical Code(s): R00.1 - Bradycardia, unspecified; T50.905A - Adverse effect of unspecified drugs, medicaments and biological substances, initial encounter (3) CKD (chronic kidney disease): Problem Comment: Established with [facility] Stage 3a Status: Acute Qualifiers: Chronic kidney disease stage: stage 3 (moderate) Chronic kidney disease stage 3 subtype: stage 3a (GFR 45-59) Qualified Code(s): N18.31 - Chronic kidney disease, stage 3a Category: Medical Code(s): N18.9 - Chronic kidney disease, unspecified (4) Heart failure with reduced ejection fraction: Status: Acute Category: Medical Code(s): I50.20 - Unspecified systolic (congestive) heart failure (5) Hypertension: Status: Acute Qualifiers: Hypertension type: primary hypertension Qualified Code(s): I10 - Essential (primary) hypertension Category: Medical Code(s): I10 - Essential (primary) hypertension (6) Hyperlipidemia: Status: Acute Qualifiers: Hyperlipidemia type: mixed hyperlipidemia Qualified Code(s): E78.2 - Mixed hyperlipidemia Category: Medical Code(s): E78.5 - Hyperlipidemia, unspecified Plan 1. Dizziness felt secondary to medication related bradycardia Will reduce bisoprolol to 2.5 mg daily Plan 2-week event monitor Keep follow-up next week 2. Nonischemic cardiomyopathy/HFrEF EF is improved and held steady at 35-40% by recent echocardiogram this month 3. CKD, stage III, stable 4. Hypertension, controlled 5. Hyperlipidemia, on statin therapy Stable from cardiac standpoint for discharge. Reduce bisoprolol to 2.5 mg daily and continue other medications. 2-week event monitor to evaluate for recurrent or continued bradycardia. Keep follow-up in the office next week.
[2024-01-05 14:53] LABS: Troponin I < 0.01 ng/ml (0.00-0.034)
== END 2024-01-05 15:21 | disposition home or self-care (01) ==
PROVIDERS: Emergency Provider Emergency Medicine; PCP Nurse Practitioner Family
DX: R42 Dizziness and giddiness (principal); R00.1 Bradycardia, unspecified; N18.31 Chronic kidney disease, stage 3a; I50.20 Unspecified systolic (congestive) heart failure; I10 Essential (primary) hypertension; E78.5 Hyperlipidemia, unspecified
CPT/HCPCS: 70450; 70496; 70498; 71045; 80053; 83735; 83880; 84100; 84484; 85025; 85610; 93005; 93270; 99285; J7120; Q9967

== ENCOUNTER 2024-01-15 08:51 | Outpatient (CLI) | payer MEDICARE, SELFPAY ==
--- NOTE | 2024-01-15 | MR_ITS ---
FINAL REPORT CLINICAL HISTORY: LUMBAR RADICULOPATHY COMPARISON: 10/12/2023 FINDINGS: Multiplanar MR imaging of the lumbar spine was performed without contrast. On the sagittal T2-weighted images, there is abnormal decreased signal throughout the lumbar discs. There is minimal spondylolisthesis of L4 on L5. The vertebral alignment is normal. L1-2: There is no significant canal stenosis or neural foraminal narrowing. L2-3: There is no significant canal stenosis or neural foraminal narrowing. L3-4: Mild to moderate diffuse disc bulge. Mild to moderate bilateral neuroforaminal narrowing. L4-5: Mild to moderate diffuse disc bulge. Moderate bilateral neuroforaminal narrowing. L5-S1: There is no significant canal stenosis or neural foraminal narrowing. IMPRESSION: Disc bulge at L3-4 and L4-5 with moderate bilateral neuroforaminal narrowing at L4-5. Findings are not significantly changed from prior. Reviewed, Interpreted and Dictated by Severino Leyva MD Transcribed by Herminia Croft Authenticated and [facility]
--- NOTE | 2024-01-15 09:58 | CT_ITS ---
FINAL REPORT TECHNIQUE: Axial images were obtained of the lumbar spine by computed tomography. Coronal and sagittal reconstruction process performed. This study was performed with techniques to keep radiation doses as low as reasonably achievable (ALARA). Individualized dose reduction techniques using automated exposure control or adjustment of mA and/or kV according to the patient''s size were employed. CLINICAL HISTORY: RADICULOPATHY COMPARISON: None FINDINGS: There is moderate disc space narrowing. Minimal spondylolisthesis is noted of L4 on L5. L1-2: No significant spinal canal compromise or neural foraminal narrowing. L2-3: No significant spinal canal compromise or neural foraminal narrowing. L3-4: Mild diffuse disc bulge. [id number]-lculqsfq bilateral neural foraminal narrowing. L4-5: Moderate diffuse disc bulge. Moderate spinal canal compromise, well seen on image 73 of series 3. Moderate bilateral facet hypertrophy. Moderate to high-grade bilateral neural foraminal narrowing. L5-S1: Mild disc bulge. Neural foramen are adequately patent. IMPRESSION: Diffuse disc bulge at L4-5 with minimal spondylolisthesis and bilateral facet hypertrophy, and moderate to high-grade bilateral neural foraminal narrowing. Reviewed, Interpreted and Dictated by Severino Leyva MD Transcribed by Herminia Croft Authenticated and [facility]
== END 2024-01-15 23:59 | disposition home or self-care (01) ==
PROVIDERS: PCP Nurse Practitioner Family; Visit Provider Student in an Organized Health Care Education/Training Program
DX: M54.16 Radiculopathy, lumbar region (principal)
CPT/HCPCS: 72131; 72148

== ENCOUNTER 2024-01-22 11:05 | Outpatient (CLI) | payer MEDICARE, SELFPAY ==
[2024-01-22 11:17] LABS: Microscopic, Urine URINE MICROSCOPIC (MICROSCOPIC)
[2024-01-22 11:42] LABS: Basophils % 0.6 % (0.1-2.0); Eosinophils # 0.1 K/mm3 (0.0-0.4); Hematocrit 52.2 % (42.0-52.0); Lymphocytes # 1.3 K/mm3 (0.7-4.5); Lymphocytes % 19.8 % (10-50); Mean Corpuscular HGB Conc 32.5 g/dL (31.8-35.4); Mean Corpuscular Hemoglobin 31.7 pg (27.0-31.2); Mean Corpuscular Volume 97.4 fl (80-94); Mean Platelet Volume 8.9 fl (7.4-10.4); Monocytes # 0.4 K/mm3 (0.1-1.0); Monocytes % 6.3 % (1.7-9.3); Neutrophils # 4.7 K/mm3 (1.8-7.8); Neutrophils % 71.3 % (37.0-80.0); Platelet Count 127 K/mm3 (142-424); Red Blood Count 5.36 M/mm3 (4.60-6.20); Red Cell Distribution Width 14.2 % (11.5-17.5); White Blood Count 6.6 K/mm3 (4.8-10.8)
[2024-01-22 12:25] LABS: Anion Gap 10.5 mEq/L (5-15); Blood Urea Nitrogen 25 mg/dl (9-20); Calcium 9.1 mg/dl (8.4-10.2); Carbon Dioxide 28 mmol/L (22.0-30.0); Chloride 107 mmol/L (98-107); Estimated Glomerular Filt Rate 51 ml/min (>60); GFR (African American) 61 ML/MIN (>60); Glucose 164 mg/dl (74-100); Phosphorous 3.3 mg/dl (2.5-4.5); Potassium 4.5 mmoL/L (3.5-5.1); Sodium 141 mmol/L (136-145)
[2024-01-22 12:28] LABS: Appearance,Urine CLEAR (Clear); Bilirubin,Urine Negative (Negative); Blood, Urine Negative (Negative); Color,Urine YELLOW (Yellow); Glucose,Urine (UA) 3+ (Negative); Ketones,Urine Negative (Negative); Leukocyte Esterase,Urine Negative (Negative); Nitrate,Urine Negative (Negative); Protein,Urine Negative (Negative); Urobilinogen,Urine 0.2 EU/dl (0.2)
[2024-01-22 12:50] LABS: Creatinine,Urine Random 43 mg/dL (Not Estab.)
[2024-01-22 13:00] LABS: Bacteria,Urine Trace /lpf; Squamous Epithelial Cell,Urine Occasional #/hpf (0-5)
== END 2024-01-22 23:59 | disposition home or self-care (01) ==
LOC: LAB 11:06
PROVIDERS: PCP Nurse Practitioner Family; Visit Provider Student in an Organized Health Care Education/Training Program
DX: N18.30 Chronic kidney disease, stage 3 unspecified (principal)
CPT/HCPCS: 36415; 80069; 81001; 82570; 84156; 85025

== ENCOUNTER 2024-01-29 09:43 | Outpatient (CLI) | payer MEDICARE, SELFPAY ==
--- NOTE | 2024-01-29 09:43 | MR_ITS ---
APPROVED REPORT Rehab Care Assistant: CLINICAL INDICATION Cardiomyopathy evaluation (LVEF 35-40% on TTE) TECHNIQUE Image Acquisition: Cardiac magnetic resonance (CMR) was performed on Siemens Espree MRI 1.5T scanner. Software platform sequences were performed using the Siemens Zipnosis MR B19 platform. A set of three-plane, low-resolution, large [id number]-[id number] localizers were initially acquired. Then axial, coronal, sagittal TrueFISP, as well as axial HASTE images, were obtained. These were followed by gated TrueFISP breathold cinematic sequences obtained in the short axis with 8 mm slices and 2 mm gaps, 2-chamber (vertical long axis), 3-chamber, 4-chamber (horizontal long axis). A bolus of contrast was injected intravenously with first-pass sequences obtained in the short axis and four-chamber planes. After approximately 10 minutes, a TI sound cutter sequence was performed to determine the optimal TI time. Using the optimized TI time, delayed contrast enhancement segmented inversion???recovery TurboFLASH sequences were obtained in the short axis, 2-chamber, 3-chamber, and 4-chamber projections. 2D-velocity phase mapping was performed. Functional parameters were calculated by offline analysis on an independent workstation ([employer] Imaging Platform, [employer]). Contrast: ProHance??? (Gadoteridol) FINDINGS MORPHOLOGY AND FUNCTION Left ventricle: The left ventricle is normal in size. The indexed left ventricular end-diastolic volume (LVEDVi) is 94 ml/m2 (reference range 57-105 ml/m2 in males, 56-96 ml/m2 in females). There is mild reduction in left ventricular systolic function. There is normal left ventricular wall thickness. Mild global hypokinesis is present. There are no regional wall motion abnormalities noted. LVEF is calculated at 45.8% (reference range 57-77%). Right ventricle: The right ventricle is normal in size. The indexed right ventricular end-diastolic volume (RVEDVi) is 86 ml/m2 (reference range 61-121 ml/m2 in males, 48-112 ml/m2 in females). Normal right ventricular systolic function is present. RVEF is calculated at 54.1% (reference range 52-72% in males, 51-71% in females). Atria: The left atrium is normal in size. The maximum indexed left atrial volume is 48 ml/m2 (reference range 26-52 ml/m2 in males, 27-53 ml/m2 in females). The right atrium is normal in size. The maximum indexed right atrial volume is 28 ml/m2 (reference range 18-90 ml/m2). Aorta: The diameter of the aortic annulus is normal, measuring 22 mm (coronal view reference range 21-30 mm in males, 19-27 mm in females). The diameter of the aortic sinus is normal, measuring 35 mm (coronal view reference range 25-42 mm in males, 24-36 mm in females). The diameter of the sinotubular junction is normal, measuring 32 mm (coronal view reference range 18-32 mm in males, 18-28 mm in females). The diameters of the ascending and descending thoracic aorta are normal. Main pulmonary artery: The main pulmonary artery diameter is normal. Pericardium: The pericardial thickness is normal. The pericardial thickness measures 2.0 mm (normal < 4.0 mm). There is no pericardial effusion. VALVES The valvular morphologies in the visualized sequences appear normal. There is no significant valvular stenosis or regurgitation of the mitral, aortic, tricuspid, or pulmonic valve noted visually. Systolic anterior motion of the mitral valve is not visualized. Ratio of pulmonary to systemic flow, Qp:Qs ratio = 1.2 (normal < or = 1.2, hemodynamically significant shunt > 1.5), demonstrating no evidence of hemodynamically significant shunt. TISSUE CHARACTERIZATION Resting Perfusion: Normal myocardial blood flow at rest. No evidence of resting hypoperfusion. Myocardial Fibrosis and/or edema: Normal gadolinium kinetics are present. No evidence of late gadolinium enhancement is noted, consistent with absence of myocardial scarring, infarction, or necrosis. T2-weighted imaging demonstrates no evidence of myocardial edema or inflammation. OTHER No other significant findings are noted. However, this exam is focused on the cardiac structure and function. IMPRESSION Normal LV size with normal LV systolic function. LVEDVi= 94 ml/m2 and LVEF= 45.8%. Normal RV size with normal RV systolic function. RVEDVi= 86 ml/m2 and RVEF= 54.1%. No atrial enlargement. No CMR evidence of myocardial scarring, infarction, or necrosis. No evidence of myocardial edema or inflammation. Perfusion analysis demonstrates normal blood flow at rest with no evidence of resting hypoperfusion. Ratio of pulmonary to systemic flow, Qp:Qs ratio = 1.2 (normal < or = 1.2, hemodynamically significant shunt > 1.5), demonstrating no evidence of hemodynamically significant shunt. This CMR demonstrates mild reduction in LV systolic function (LVEF 46%). The findings do not suggest infiltrative cardiomyopathy or evidence of inflammation, scarring, or prior infarct. Compared to recent TTE (12/2023), the LVEF is improved, which may represent partial recovery in the setting of GDMT. COMPARISON None CRITICAL RESULT None COMMUNICATION The above findings were communicated with the patient at the time of his routine outpatient cardiology clinic visit prior to final dictation of this report. The findings of this cardiac MR were reviewed, reported, and signed by Tony Quinteros MD (Master Scheduler). Conclusion Electronically signed by : Shama Quinteros MD 03/08/2024 12:58:43
== END 2024-01-29 23:59 | disposition home or self-care (01) ==
LOC: RAD 09:43
PROVIDERS: PCP Nurse Practitioner Family; Visit Provider Nurse Practitioner
DX: I42.9 Cardiomyopathy, unspecified (principal); R00.1 Bradycardia, unspecified; I50.20 Unspecified systolic (congestive) heart failure
CPT/HCPCS: 75561

== ENCOUNTER 2024-02-03 08:37 | Day surgery (SDC) | payer MEDICARE, SELFPAY ==
--- NOTE | 2024-01-29 14:00 | SUR.PREOP ---
1400-called placed to sirisha in [facility] for cardiac clearance for colonoscopy.
[2024-01-29 14:01] VITALS: BMI 28.3
[2024-02-03 08:49] VITALS: BP 121/77; PULSE 71; RESP 18; TEMP 36.2; O2SAT 96
[2024-02-03] MEDS: LACTATED RINGERS 1000ML 1,000 ML 25 ML IV (08:56)
--- NOTE | 2024-02-03 09:23 | EXP.ANES.CKL ---
[facility] Disclaimer: The information contained in this section may have been updated after the patient was seen, as this information can be updated by other users. Medical History Cardiomyopathy Abnormal ECG Impacted cerumen of both ears Acute pain of left foot Chronic sinusitis History of postnasal drip Allergic rhinitis Deviated nasal septum Acute systolic CHF (congestive heart failure) Heart failure with reduced ejection fraction CKD (chronic kidney disease) Contusion of right knee Acute pain of right knee Urinary tract infection BPH (benign prostatic hyperplasia) Hyperlipidemia Hypertension Urinary tract infection Surgical History H/O prostate biopsy History of back surgery H/O hernia repair History of cardiac cath Family History Other Heart attack No significant family history Renal disease Stroke Social History (Updated 02/03/24 @ 08:50 by Maren Carvalho RN) Smoking Status: Never smoker years smoked: 33 how long ago did patient quit smokin years second hand exposure: No alcohol intake: never substance use type: denies use current occupational status: employed Travel in the last 8 weeks: None household members: spouse housing: house current occupational exposures/hazards: No caffeine: Yes [facility] Anesthesia Checklist Patient Identification Patient Identification: Arm Band, Family and Verbal (Name & ) Structural Data Admitted From: Home Planned Operative Procedure/s: Colonoscopy Consent for Planned Operative Procedure(s) Verified: Yes Verified Documents: Surgical Consent and History and Physical NPO Status Verified Time NPO: 22:30 Chart Verification Results Verified: CBC, BMP and ECG Additional verifications Patient : No Anesthesia Reactions: No Hx Blood Transfusions: No Blood Transfusion Reaction: No Cardiovascular Assessment Heart Sounds: S1 & S2 Pulse Rhythm: Irregular Peripheral Edema: No Airway Assessment Mallampati Score:: Class II C-Spine Mobility Assessed: Yes (FROM) TMJ Mobility Assessed: Yes Dentition: Partials (Upper. Nothing loose per pt.) Neurological Assessment Level of Consciousness: Awake, Alert, Appropriate and Follows Commands Hx Seizures: No Numbness or tingling in extremities: No Anesthesia Plan Anesthesia Risk discussed: Yes Anesthesia Plan: Verified ASA Class: III Anesthesia Type: MAC
[2024-02-03 09:34] VITALS: O2SAT 97
--- NOTE | 2024-02-03 09:53 | HMH.SCOPE ---
Procedure: Date: 02/03/24 Patient Date of :: 1955 Procedure Performed:: Colonoscopy Indications:: The patient is a 68-year-old who presents for surveillance colonoscopy for a history of polyps in the past Performing Provider:: Garcia Brothers MD Referring Provider:: Hemalatha Pritchard APRN Sedation:: See RN records Procedure:: After placing the patient in the left lateral decubitus position, the colonoscopy was gently inserted into the rectum and under direct visualization advanced to the cecum which was identified by transillumination in the right lower quadrant, identification of the ileocecal valve, appendiceal orifice, and cecal strap. Color, texture, mucosa, and anatomy of the colon were carefully examined with the scope. Findings:: The quality of the bowel preparation was good except for a fair preparation from the cecum, ascending colon, and transverse colon (characterized by thicker mucus substance adherent to mucosa). Time was spent irrigating and cleansing the mucosa. There was mild diverticulosis of the sigmoid colon. On retroflexion view of the rectum internal hemorrhoids were seen and hypertrophic anal papilla. Impression: Mild sigmoid diverticulosis Recommendations:: Await pathology results Repeat colonoscopy in 5 years for surveillance purposes Complications:: None Estimated blood obtained (mL): 0 Colonoscopy Component Colonoscopy Component Was a colonoscopy performed during today's procedure?: Yes Recommended follow up colonoscopy of at least 10 years?: Yes
[2024-02-03 09:57] VITALS: BP 105/65; PULSE 70; RESP 18; TEMP 36.3; O2SAT 95
[2024-02-03 10:07] VITALS: BP 102/62; PULSE 74; RESP 18; O2SAT 94
[2024-02-03 10:17] VITALS: BP 112/78; PULSE 68; RESP 18; O2SAT 94
[2024-02-03 10:30] VITALS: BP 110/75; PULSE 68; RESP 18; O2SAT 95
== END 2024-02-03 10:34 | disposition home or self-care (01) ==
PROVIDERS: PCP Nurse Practitioner Family; Visit Provider Internal Medicine
PROC: (CPT 45378; principal; 2024-02-03 09:30)
DX: Z86.010 Personal history of colon polyps (principal); K57.30 Diverticulosis of large intestine without perforation or abscess without bleeding; K64.8 Other hemorrhoids; K62.89 Other specified diseases of anus and rectum
CPT/HCPCS: 45378; J7120

== ENCOUNTER 2024-02-22 14:20 | Emergency (ER) | payer OTHER, SELFPAY ==
[2024-02-22 14:21] VITALS: BP 135/92; PULSE 71; RESP 16; TEMP 36.7; O2SAT 95; BMI 28.3
--- NOTE | 2024-02-22 14:30 | HMH.EDGENADL ---
Discharge Plan Disposition Patient Disposition: Xfer Short-Term Hosp Condition: Good Prescriptions Prescriptions: New cephalexin 500 mg capsule 500 mg PO Q6H 7 Days Qty: 28 0RF No Action levocetirizine 5 mg tablet 5 mg PO DAILY Entresto 24-26 mg tablet 1 tab PO BID Qty: 60 2RF Entresto 24-26 mg tablet 24 tab PO DAILY 0RF bisoprolol fumarate 5 mg tablet 5 mg PO DAILY Qty: 30 5RF allopurinol 100 mg tablet 100 mg PO DAILY atorvastatin 10 mg tablet 10 mg PO DAILY Jardiance 10 mg tablet 10 mg PO DAILY omeprazole 40 mg capsule,delayed release(DR/EC) 40 mg PO DAILY lidocaine 4 % adhesive patch,medicated 1 patch topical BID PRN (Reason: pain) Qty: 30 0RF peg 3350-electrolytes [GaviLyte-G] 236-22.74-6.74 -5.86 gram recon soln 240 ml PO Q10M Qty: 4000 0RF Rx Instructions: follow mailed instructions Referrals Follow up/Referrals: David Bell DO [Staff Physician] - See instructions Velma Pritchard APRN [Primary Care Provider] - See instructions Activity Restrictions/Add. Instructions Additional Instructions/Restrictions: Follow up with orthopedics Dr. Bell in 7-10 days. Take antibiotics as prescribed. Please follow up with your primary care provider in 2-3 days. Please return to ED if your symptoms worsen, change in location, change in severity, new symptoms develop or if you become concerned for your health. Clinical Impressions Clinical Impression: Finger laceration Stand Alone Forms Stand Alone Forms: Transfer Record - ED Instructions Patient Instructions: DI for Laceration Repair Print Language Print Language: Estonian Discharge ED Provider: Emmett Rodrigues General Adult HPI <Marco A Cohn MD - Last Filed: 02/22/24 16:06> General Chief complaint: Wound/Laceration Stated complaint: [id number]- laceration to L middle and index finger Time Seen by Provider: 02/22/24 14:29 History of Present Illness HPI narrative: Patient is a 68-year-old male with history of hypertension, heart failure with preserved ejection fraction. He is presenting today after an injury to the left hand. He was using an angle chicle grinder feeder when it exploded. He looked down and noticed that there was a cut over his dorsal aspect of his left middle finger as well as a punctate lesion over the left ring finger. Hemostatic on direct pressure. He denies any numbness tingling. Reports a 6 out of 10 pain, would not like anything for pain at this time. Unsure of last tetanus shot. Related Data Home Medications ?Medication ?Instructions ?Recorded ?Confirmed allopurinol 100 mg tablet 100 mg PO DAILY Gout 10/22/23 02/18/24 atorvastatin 10 mg tablet 10 mg PO DAILY 10/22/23 02/18/24 empagliflozin 10 mg tablet 10 mg PO DAILY 10/22/23 02/18/24 (Jardiance) omeprazole 40 mg capsule,delayed 40 mg PO DAILY 10/22/23 02/18/24 release levocetirizine 5 mg tablet 5 mg PO DAILY 12/17/23 02/18/24 Previous Rx's ?Medication ?Instructions ?Recorded lidocaine 4 % topical patch 1 patch topical BID PRN pain #30 ea 10/22/23 sacubitril 24 mg-valsartan 26 mg 1 tab PO BID #60 tabs 12/17/23 tablet (Entresto) peg 3350-electrolytes 236 240 ml PO Q10M #4,000 mL 01/06/24 gram-22.74 gram-6.74 gram-5.86 gram solution (GaviLyte-G) bisoprolol fumarate 5 mg tablet 5 mg PO DAILY #30 tabs 02/18/24 cephalexin 500 mg capsule 500 mg PO Q6H 7 days #28 caps 02/22/24 Allergies Allergy/AdvReac Type Severity Reaction Status Date / Time Iodinated Contrast Media AdvReac Intermediate WAS TOLD Verified 02/18/24 14:50 HARMFUL TO KIDNEYS [facility] <Marco A Cohn MD - Last Filed: 02/22/24 16:06> [facility] Disclaimer: The information contained in this section may have been updated after the patient was seen, as this information can be updated by other users. Medical History (Updated 02/22/24 @ 15:21 by Marco A Cohn MD) Paroxysmal A-fib HFrEF (heart failure with reduced ejection fraction) Cardiomyopathy Abnormal ECG Impacted cerumen of both ears Acute pain of left foot Chronic sinusitis History of postnasal drip Allergic rhinitis Deviated nasal septum Acute systolic CHF (congestive heart failure) Heart failure with reduced ejection fraction CKD (chronic kidney disease) Contusion of right knee Acute pain of right knee Urinary tract infection BPH (benign prostatic hyperplasia) Hyperlipidemia Hypertension Urinary tract infection Surgical History H/O prostate biopsy History of back surgery H/O hernia repair History of cardiac cath Family History Other Heart attack No significant family history Renal disease Stroke Social History Smoking Status: Never smoker years smoked: 33 how long ago did patient quit smokin years second hand exposure: No alcohol intake: never substance use type: denies use current occupational status: employed Travel in the last 8 weeks: None household members: spouse housing: house current occupational exposures/hazards: No caffeine: Yes <Marco A Cohn MD - Last Filed: 02/22/24 16:06> ROS Obtained: Yes All systems reviewed & no additional complaints except as documented Physical Exam <Marco A Cohn MD - Last Filed: 02/22/24 16:06> General General appearance: alert and in no apparent distress Head Head exam: atraumatic and normocephalic Eye Eye exam: Present normal appearance Chest Chest inspection: Present symmetric chest wall rise Respiratory Respiratory exam: Absent respiratory distress or stridor Cardiovascular Cardiovascular exam: Present regular rate and normal rhythm Abdominal Exam Abdominal exam: Absent distention exam: Present deferred Extremities Exam Extremities exam: Present tenderness (2 and half centimeter laceration over the PIP joint in the left middle finger dorsally with a shallower laceration just distal to that. Hemostatic on direct pressure. Punctate lesion along the left ring finger dorsally. Neurovascularly intact distally.) Neurological Exam Neurological exam: Present alert and oriented X3 Psychiatric Psychiatric exam: Present normal mood Skin Skin exam: Present warm and dry Medical Decision Making <Marco A Cohn MD - Last Filed: 02/22/24 16:06> Medical Records Medical records reviewed: Yes I reviewed the patient's medical records. Screening: Per USPSTF and CDC recommendations, given the prevalence of disease in our region, it is our hospital?s policy to screen for HIV and viral Hepatitis for all patients aged 18 and over and those with ongoing risk factors. Jalen Inquiry Pt receiving controlled substance: No Vital Signs: 02/22/24 14:21 Temperature 98.1 F Temperature Source Oral Pulse Rate [Radial] 71 Respiratory Rate 16 Blood Pressure [Right Arm] 135/92 H Blood Pressure Mean [Right Arm] 106 Blood Pressure Source [Right Arm] Automatic Cuff Blood Pressure Position [Right Arm] Sitting 02 Sat by Pulse Oximetry 95 Oxygen Delivery Method Room Air Orders (Tests/Meds): ED MEDICATIONS Generic Name Dose Route Start Last Admin Trade Name Freq PRN Reason Stop Dose Admin Cefazolin Sodium 2 gm/ Sodium 100 mls @ 200 mls/hr 02/22/24 15:45 02/22/24 16:16 Chloride IV 03/03/24 15:44 200 mls/hr Q6H CARLOS MANUEL Administration Discontinued Medications Generic Name Dose Route Start Last Admin Trade Name Freq PRN Reason Stop Dose Admin Lidocaine HCl 10 ml 02/22/24 15:14 02/22/24 15:17 Lidocaine 1% 10ml Mdv IJ 02/22/24 15:15 10 ml ONCE ONE Administration Tetanus/Reduced Diphtheria/Acell Pertussis 0.5 ml 02/22/24 14:39 02/22/24 14:54 Tet/Diphth/Pert-Adult 0.5ml Syringe IM 02/22/24 14:40 0.5 ml .ONCE ONE Administration ORDERS Category Date Time Status Hand XR left minimum 3 views [XR hand LT min 3V] Stat Exams 02/22/24 14:38 Completed Medical Decision Narrative: In summary, this 68-year-old male presents to the emergency department today with finger injury. On initial evaluation patient is afebrile, hemodynamically stable and in no acute distress.. Differential diagnosis includes but is not limited to fracture, dislocation, sprain, strain, neurovascular compromise. Based on these concerns, I ordered x-ray of left hand I independently interpreted the x-ray of the left hand to demonstrate a tiny avulsion fracture by the proximal interphalangeal joint. Again neurovascular intact. On direct visualization, this was invading the joint space indicating an open joint. Will empirically administer 2 g of Ancef IV. Full reasonable to consult [facility] for further evaluation. Considered IV narcotics, however after shared decision making patient he is refusing at this time so this was deferred.. Dr. Bryant Alexis with [facility] agrees to accept the patient to the ER there for further workup and definitive management. Patient be transferred in hemodynamically stable condition Vickey Beebe PA-C procedure note: Full laceration note below however on note after digital block and tourniquet application main laceration over the dorsum of the third digit over the IP joint explored. The dorsal capsule is open. Patient however is neurovascularly intact and has full flexion and extension and I am unable to appreciate any tendon involvement. I was consulted by the GERMAN, and we discussed the complexity of problems being addressed. I approved the treatment and management plan for this patient's care in the emergency department, thus performing a substantial portion of the medical decision making. I was present for all barr aspects of the procedure. Marco A Cohn MD <MARI Wright - Last Filed: 02/22/24 16:02> Vital Signs: 02/22/24 14:21 Temperature 98.1 F Temperature Source Oral Pulse Rate [Radial] 71 Respiratory Rate 16 Blood Pressure [Right Arm] 135/92 H Blood Pressure Mean [Right Arm] 106 Blood Pressure Source [Right Arm] Automatic Cuff Blood Pressure Position [Right Arm] Sitting 02 Sat by Pulse Oximetry 95 Oxygen Delivery Method Room Air Orders (Tests/Meds): ED MEDICATIONS Generic Name Dose Route Start Last Admin Trade Name Freq PRN Reason Stop Dose Admin Cefazolin Sodium 2 gm/ Sodium 100 mls @ 200 mls/hr 02/22/24 15:45 02/22/24 16:16 Chloride IV 03/03/24 15:44 200 mls/hr Q6H CARLOS MANUEL Administration Discontinued Medications Generic Name Dose Route Start Last Admin Trade Name Freq PRN Reason Stop Dose Admin Lidocaine HCl 10 ml 02/22/24 15:14 02/22/24 15:17 Lidocaine 1% 10ml Mdv IJ 02/22/24 15:15 10 ml ONCE ONE Administration Tetanus/Reduced Diphtheria/Acell Pertussis 0.5 ml 02/22/24 14:39 02/22/24 14:54 Tet/Diphth/Pert-Adult 0.5ml Syringe IM 02/22/24 14:40 0.5 ml .ONCE ONE Administration ORDERS Category Date Time Status Hand XR left minimum 3 views [XR hand LT min 3V] Stat Exams 02/22/24 14:38 Completed Medical Decision Narrative: In summary, this 68-year-old male presents to the emergency department today with finger injury. On initial evaluation patient is afebrile, hemodynamically stable and in no acute distress.. Differential diagnosis includes but is not limited to fracture, dislocation, sprain, strain, neurovascular compromise. Based on these concerns, I ordered x-ray of left hand I independently interpreted the x-ray of the left hand to demonstrate a tiny avulsion fracture by the proximal interphalangeal joint. Again neurovascular intact. On direct visualization, this was invading the joint space indicating an open joint. Will empirically administer 2 g of Ancef IV. Full reasonable to consult [facility] for further evaluation. Considered IV narcotics, however after shared decision making patient he is refusing at this time so this was deferred.. Procedure note: Full laceration note below however on note after digital block and tourniquet application main laceration over the dorsum of the third digit over the IP joint explored. The dorsal capsule is open. Patient however is neurovascularly intact and has full flexion and extension and I am unable to appreciate any tendon involvement. Procedures <MARI Wright - Last Filed: 02/22/24 16:02> Laceration Laceration 1: Site: finger (Left fourth, lateral aspect of the IP between the fingers) Side (If applicable): left Size (cm): 0.5 Description: linear Amount of anesthesia used (mL): 2 Pre-repair: wound explored, irrigated extensively and deep structures intact Skin layer closed with: nylon Size (cm): 4-0 Number of sutures: 1 Technique: simple, interrupted Laceration 2: Site: finger (Left third dorsum) Side (If applicable): left Size (cm): 1.5 Description: linear Depth: simple, single layer Local Anesthetic: lidocaine 1% (Digital block) Amount of anesthesia used (mL): 10 Pre-repair: wound explored, irrigated extensively and deep structures intact Skin layer closed with: nylon Size (cm): 4-0 Number of sutures: 4 Technique: simple, interrupted Critical Care <Marco A Cohn MD - Last Filed: 02/22/24 16:06> Critical Care Time Critical Care Time: No
--- NOTE | 2024-02-22 14:37 | PC.NURSE ---
DR ROCKWELL AT BEDSIDE
--- NOTE | 2024-02-22 14:38 | XR_ITS ---
FINAL REPORT CLINICAL HISTORY: trauma third digit FINDINGS: Left hand Three views were obtained. There may be a small fragment along the dorsal base of the 3rd middle phalanx. This is seen on the oblique view only. There are mild hypertrophic changes of the DIP, PIP and basilar joints. No soft tissue abnormality is identified. IMPRESSION: Question tiny avulsion fracture as above. Reviewed, Interpreted and Dictated by Severino Leyva MD Transcribed by Jigna Allen Authenticated and . [facility]
[2024-02-22] MEDS: TET/DIPHTH/PERT-ADULT 0.5ML SYRINGE 0.5 ML IM (14:54)
[2024-02-22] MEDS: LIDOCAINE 1% 10ML MDV 10 ML IJ (15:17)
--- NOTE | 2024-02-22 15:52 | PC.NURSE ---
Called [facility] for consult on patient. Dr Rodrigues is talking to DR Alexis.
--- NOTE | 2024-02-22 16:06 | PC.NURSE ---
Report called to ROLAND Bran at [facility].
[2024-02-22] MEDS: CEFAZOLIN SODIUM 2 GM in 0.9 % SODIUM CHLORIDE 100 ML IV (16:16)
[2024-02-22 16:37] VITALS: BP 135/92; PULSE 71; RESP 16; TEMP 36.7; O2SAT 95
== END 2024-02-22 16:41 | disposition short-term general hospital (02) ==
PROVIDERS: Emergency Provider Emergency Medicine; PCP Nurse Practitioner Family
DX: S61.213A Laceration without foreign body of left middle finger without damage to nail, initial encounter (principal); S61.215A Laceration without foreign body of left ring finger without damage to nail, initial encounter; W31.1XXA Contact with metalworking machines, initial encounter; Z23 Encounter for immunization
CPT/HCPCS: 12001; 73130; 90471; 90715; 96365; 99284

== ENCOUNTER 2024-06-09 15:12 | Outpatient (CLI) | payer MEDICARE, SELFPAY ==
[2024-06-09 15:31] LABS: Basophils % 0.6 % (0.1-2.0); Eosinophils # 0.2 K/mm3 (0.0-0.4); Eosinophils % 2.3 % (0.1-12.0); Hemoglobin 16.5 g/dL (14.1-18.0); Lymphocytes # 1.3 K/mm3 (0.7-4.5); Lymphocytes % 18.7 % (10-50); Mean Corpuscular HGB Conc 34.4 g/dL (31.8-35.4); Mean Corpuscular Hemoglobin 31.2 pg (27.0-31.2); Mean Corpuscular Volume 90.7 fl (80-94); Mean Platelet Volume 10.5 fl (7.4-10.4); Monocytes # 0.7 K/mm3 (0.1-1.0); Monocytes % 10.2 % (1.7-9.3); Neutrophils # 4.8 K/mm3 (1.8-7.8); Neutrophils % 68.1 % (37.0-80.0); Platelet Count 123 K/mm3 (142-424); Red Blood Count 5.29 M/mm3 (4.60-6.20); Red Cell Distribution Width 13.2 % (11.5-17.5)
[2024-06-09 15:56] LABS: Chloride 108 mmol/L (98-107); Potassium 4.3 mmoL/L (3.5-5.1); Sodium 137 mmol/L (136-145)
[2024-06-09 15:58] LABS: Blood Urea Nitrogen 26 mg/dl (9-20); Estimated Glomerular Filt Rate 51 ml/min (>60); GFR (African American) 61 ML/MIN (>60)
[2024-06-09 15:59] LABS: Alanine Aminotransferase 26 U/L (12-78); Alkaline Phosphatase 82 U/L (38-126); Anion Gap 11.3 mEq/L (5-15); Aspartate Amino Transferase 25 U/L (17-59); Bilirubin,Direct 0.1 mg/dl (0.0-0.4); Bilirubin,Indirect 0.3 mg/dL (0.0-0.9); Bilirubin,Total 0.4 mg/dl (0.2-1.3); Bilirubin,Unconjugated 0.3 mg/dL (0.0-1.1); Calcium 8.9 mg/dl (8.4-10.2); Carbon Dioxide 22 mmol/L (22.0-30.0); Cholesterol 134 mg/dl (140-200); Glucose 94 mg/dl (74-100); Magnesium 1.5 mg/dl (1.6-2.3); Total Protein,Serum 6.3 g/dl (6.3-8.2); Triglycerides 280 mg/dl (30-150); VLDL Cholesterol 56 mg/dL (0-40)
[2024-06-09 16:00] LABS: Chol/HDL Ratio 4.1 (1-3.5); HDL Cholesterol 33 mg/dl (40-60)
[2024-06-09 16:11] LABS: Direct LDL Cholesterol 69.74 mg/dL (100-129)
[2024-06-09 16:30] LABS: Thyroid Stimulating Hormone 0.55 uIU/mL (0.465-4.68)
== END 2024-06-09 23:59 | disposition home or self-care (01) ==
LOC: LAB 15:14
PROVIDERS: PCP Nurse Practitioner Family; Visit Provider Internal Medicine
DX: I50.20 Unspecified systolic (congestive) heart failure (principal); I42.8 Other cardiomyopathies; N18.31 Chronic kidney disease, stage 3a; I10 Essential (primary) hypertension; E78.2 Mixed hyperlipidemia; E66.3 Overweight
CPT/HCPCS: 36415; 80048; 80061; 80076; 83735; 84439; 84443; 85025

== ENCOUNTER 2024-06-17 12:41 | Outpatient (CLI) | payer MEDICARE, SELFPAY ==
--- NOTE | 2024-06-17 | CA_ITS ---
APPROVED REPORT EXAM: Comprehensive 2D, Doppler, and color-flow Echocardiogram Photographer Lithographic: Jaqueline Barrientos RT(R) Ht: 6 ft 1 in Wt: 231lbs BSA: 2.29 BP: 138/70 mmHg Indications: HTN, HLD, AFIB, hx CM, CHF, EF 35%-40% on 12/25/23. Ordered with contrast. Echo Enhancing Agent Indication: Endocardial border delineation Agent(s) / Amount(s) Used: Definity 2 cc 2D Dimensions LVEF (Rodriguez's) 39.50 % M: 52 - 72 LV Volume 204.60 mL M: 62 - 150 LV Volume Index 89.3 mL/m2 M: 34 - 74 LA Volume 54.90 mL LA Volume Index 23.97 mL/m2 (M/F) 16-34 EF AP4 39.10 % EF AP2 38.5 % EF BP 39.5 % GL Strain -12.4 % M-Mode Dimensions RVDd 2.62 cm (0.9-2.6) LA Diam 3.24 cm (1.9-4.0) LVDd 5.28 cm (3.5-5.7) LVDs 4.31 cm (3.5-5.7) IVSd 0.89 cm (0.6-1.1) PWd 1.01 cm (0.6-1.1) EF (Teich) 37.80% FS 18.40% EDV (Teich) 134.20 mL ESV (Teich) 83.50 mL LV Diastology E Decel Time 117 (160-240 msec) E/A Ratio 0.57 Mitral Valve MV A Velocity 74.0 (40-130 cm/s) E/A Ratio 0.57 Left Ventricle The left ventricle is normal size. Left ventricular systolic function is mild to moderately decreased. There is increased LV wall thickness. There is mild to moderate global hypokinesis. Grade 1 diastolic dysfunction is present. No left ventricle thrombus noted on this study. LVEF is 40%. Right Ventricle The right ventricle is normal size. The right ventricular systolic function is normal. Atria The left atrium size is normal. The right atrium size is normal. There is no Doppler evidence of interatrial shunt. Aortic Valve The aortic valve opens well. There is no aortic valvular stenosis. No aortic regurgitation is present. Mitral Valve The mitral valve is normal in structure. No evidence of mitral valve stenosis. Trace mitral regurgitation. Tricuspid Valve Tricuspid valve is grossly normal in structure and function. Trace tricuspid regurgitation. There is insufficient TR jet to estimate RVSP. Pulmonic Valve The pulmonary valve is normal in structure. Trace pulmonic regurgitation. Great Vessels The aortic root is normal in size. The ascending aorta is not well-visualized. IVC is normal in size and collapses >50% with inspiration. Pericardium There is no pericardial effusion. Other Information Study Quality: Fair Conclusion Mild to moderate reduction global LV systolic function (LVEF 40%). No significant valvular stenosis or regurgitation. Compared to prior study from 12/25/2023, the LVEF is overall unchanged. Electronically signed by : Shama Quinteros MD 06/25/2024 23:44:08
[2024-06-17] MEDS: DEFINITY US ECHO CONTRAST 2ML INJ 2 MG IV (13:40)
== END 2024-06-17 23:59 | disposition home or self-care (01) ==
LOC: RT 12:43
PROVIDERS: PCP Nurse Practitioner Family; Visit Provider Internal Medicine
DX: I42.8 Other cardiomyopathies (principal); I50.21 Acute systolic (congestive) heart failure
CPT/HCPCS: 93306; Q9957

== ENCOUNTER 2024-09-02 12:47 | Outpatient (CLI) | payer MEDICARE, SELFPAY ==
--- OUTSIDE RECORDS SUMMARY | 2024-09-02 12:51 | XMS_ITS | Data Portability ---
Author Organization JAYDA PORSHA Estrella ORANGE CLOSED Address [address] [place] [address] Care Team Providers Care Machine Packaging Technician Name Role Phone ADRIAN DELGADILLO Referring Provider [phone] ADRIAN DELGADILLO Primary Care Provider Assessment Encounter Date Assessment Date Assessment LastModified by Organization Details LastModified Time 10/30/2023 10/30/2023 Evie Sue is a 68-year-old male presenting to the clinic with complaints of lower back pain x 6 months. His lumbar MRI from 10/12/2023 was reviewed by myself and Dr. Trammell. He was noted to have severe right and moderate to severe left subarticular stenosis at L4-5. He also has a spondylolisthesis noted at L4-5. He has mild right foraminal stenosis at this level as well. He has scar tissue noted at the L5-S1 level consistent with his previous discectomy. There is no evidence of reherniation. He also has an homogenous marrow signal noted in his lumbar spine and sacrum. We will order an MRI with and without contrast to further evaluate the marrow signal. We will also order a CT of the lumbar spine for further bony evaluation. Flexion and extension x-rays have been ordered to evaluate for any instability. The patient will follow-up in the clinic in 3 months. He should contact the office with any questions, concerns, or new or worsening symptoms. [email or web address] Not available 10/30/2023 09:17:29 02/19/2024 02/19/2024 ASSESSMENT: Raulito Sue is a pleasant 68-year-old man who returns to the office after last being seen 10/30/2023 with continued low back pain that has improved in its severity. He had an updated MRI, CT, and x-rays completed that he is here to review today. He is accompanied by his , Rain. He reports that he does still have a aching pain into his low back but this is usually worse in the winter. This is above his hips on both sides at his waistline. He denies any radicular symptoms into his lower extremities. He has previously had back surgery with a provider at [facility] in 2019 when he had what sounds like severe radicular pain into his right lower extremity. He has done 10 visits with physical therapy and had an SI injection he believes earlier this year. The PT gave him some stretches to do which he does find helpful but the SI injection he reports only helped for around 3 days. He only takes anti-inflammatories intermittently due to history of kidney issues though he reports his kidney function is now at 50%. He self caths 4 times a day as he reports he has significant bladder distention and was unable to completely empty his bladder or even appreciate the urge to void. He denies any saddle anesthesia. He has been worked up by urology and there was never a cause of his significant bladder distention but it sounds as though it was so significant it was backing up into his kidneys when he was diagnosed with kidney failure. He has had a prostate biopsy which he reports was negative. He has no history of cancer or radiation treatment. IMAGING: Flexion-extension x-rays taken at the clinic 10/30/2023. Lumbar MRI without contrast and a lumbar CT scan without contrast taken [facility]/15/20[facility] Dr. Trammell and I have reviewed the images personally and read the radiologist's report. His x-rays revealed a spondylolisthesis at L4-5 with no significant instability appreciated though very minimal movement when going from standing to lying down. His CT reveals some possible low bone denisty but no punched-out spots are visualized. They did not do an MRI with contrast, we are assuming due to his history of kidney issues, this again reveals a severe right subarticular stenosis at L4-5 and moderate to severe left subarticular stenosis at L4-5 as well as facet arthropathy. The abnormal signal is still appreciated in the vertebral bodies of his lumbar spine with discrete lesions and an abnormal signal appreciated in his sacrum. We will upload these images to our PACS. Seen by Dr. Trammell and myself PLAN: Refer to Dr. Santana for pain management to evaluate and treat his lumbar spine Methocarbamol 750 mg dispense #30 with no refills take 1 tablet 3 times a day as needed for muscle spasms Follow-up with our office as needed We spoke at length with Mr. Sue and his that, while he does have a spondylolisthesis at L4-5, given that his symptoms are already improving and he has not exhausted all conservative measures he would not recommend surgery at this time. He is encouraged to continue with the home exercises that he has found helpful. We will order a muscle relaxer that he can use on an as needed basis if he feels this is more of a muscular pain. We did discuss these can be sedating so he should not drive or operate machinery after taking them. His is a patient of Dr. Santana, she has an intrathecal pain pump, and he is not interested in pursuing that form of treatment at this time given his symptoms are nowhere near severe enough per his report, but we will refer him there to discuss other injection options such as an epidural, MBB's, or rhizotomy. We will leave follow-up open at this point as his is getting ready to have knee surgery and he will need to help her with her recovery. He will contact us if his symptoms stop responding to conservative measures or become worse and he would like to revisit the subject of surgery. They both verbalized understanding of these instructions and are agreeable to this plan. They have no further questions or concerns at this time. They are satisfied with this plan of care. [email or web address] Not available 02/19/2024 14:32:31 Plan of Treatment Reminders Order Date Submit Date Provider Last Modified By Organization Details Last Modified Time Details Appointments None recorded. Lab None recorded. Referral None recorded. Procedures None recorded. Surgeries None recorded. Imaging None recorded. Medication Orders methocarbam ol 750 mg tablet 2023 024 [facility], [address] [address] [place], [id number], 14:25:52 Patient TargetsNo targets recorded. Patient InstructionsNo instructions recorded. Reason for Referral None Reported. Results Created Date Observation Date Name Description Value Unit Range Abnormal Flag Note LastModifiedBy Organization Detail LastModifiedTime 10/14/19 24 10/12/2023 MRI, lumba r spine , w/o contr ast No observ ation record ed. [email or web address] Not Available 2023 10:37:17 10/30/19 24 10/30/2023 XR, lumbo sacra l spine , 2 or 3 view, bendi ng only [id number] [place] [address] Patirandall t Name: EVIE castro : [birth year] 60 Patien t 0 Orderi ng Provid er: PHILMICHAEL VITAL T EXAM DATE: 2023 EXAM: XR LUMBAR SPINE FLEX/E XT ONLY HISTOR Y: Low back pain COMPAR MATEUS: None. FINDIN GS: There is anteri or listhe sis of L4 on L5. This measur es approx imatel y 6 mm with flexio n and extens ion. There is mild anteri or margin al spurri ng. No fractu re is identi fied. IMPRES GINI: 1. There are mild degene rative change s in the lumbar spine. Interp reted By: Tiffany perez MD Electr onical ly Signed By: Tiffany perez MD on 10/30/19 10:[email or web address] [place] [address] Radiology [facility] [address] [place], [address], 10/30/2023 12:19:59 01/15/20 24 01/15/2024 MRI, lumba r spine , w/wo contr ast No observ ation record ed. [address], [place], [address], 01/19/2024 12:03:03 01/15/20 24 01/15/2024 CT, lumba r spine , w/o contr ast No observ ation record ed. [address] (Scheduling) [address], [place], [address], 01/19/2024 12:02:41 Result Notes None recorded. Procedures Surgical History Date Name Laterality Status Provider Name and Address Organization Details Recorded Time hernia repair completed Holliejosé antonio Santoyo [facility] 10/30/2023 08:32:34 Back Surgery completed Holliejosé antonio MONTELONGO [facility] 10/30/2023 08:32:44 Imaging Results Imaging Date Name Status LastModified by Organiz ation Details LastModified Time 10/12/2023 MRI, lumbar spine, w/o contrast completed [email or web address] Information not available 10/16/2023 10:37:17 10/30/2023 XR, lumbosacral spine, 2 or 3 view, bending only completed [address] Radiology [facility] [address] [place], [address], 10/30/2023 12:19:59 01/15/2024 MRI, lumbar spine, w/wo contrast completed [address], [place], [address], 01/19/2024 12:03:03 01/15/2024 CT, lumbar spine, w/o contrast completed [address] (Scheduling) [address], [place], [address], 01/19/2024 12:02:41 Procedure Notes None recorded. Medical Equipment None Reported. Allergies No known drug allergies Medications Name Sig Start Date Stop Date Status Note LastModified by Organization Details LastModified Time cyclobenzaprine 10 mg tablet Take 1 tablet every 8 hours by oral route as needed. 2023 active Not Available Not Available Not Avai lable bisoprolol 10 mg-hydrochloroth iazide 6.25 mg tablet Take 1 tablet every day by oral route. active Not Available Not Available No t Available methocarbamol 750 mg tablet TAKE ONE TABLET BY MOUTH 3 TIMES A DAY NEEDED FOR MUSCLE SPASMS active Not Available Not Available No t Available atorvastatin active Not Available Not Available Not Available omeprazole active Not Available Not Av ailable Not Available allopurinol active Not Available Not A vailable Not Available cetirizine active Not Available Not Av ailable Not Available Jardiance active Not Available Not Rakel ilable Not Available Entresto active Not Available Not Avai lable Not Available Cystex UTI Prebiotic active Not Available Not Available No t Available Vitals Date Recorded Body height Body mass index (BMI) Body weight Systolic blood pressure Diastolic blood pressure Provider Name and Address Organization Details Last Updated DateTime 10/30/2023 185.42 cm 28.4 kg/m2 98295.3 6 g 134 mm[Hg] 78 mm[Hg] [facility] 08:39:34 Date Recorded Body height Body mass index (BMI) Body weight Systolic blood pressure Diastolic blood pressure Provider Name and Address Organization Details Last Updated DateTime 02/19/2024 185.42 cm 28.4 kg/m2 53144.3 6 g 124 mm[Hg] 84 mm[Hg] [facility] 13:34:23 Social History None recorded. Functional Status None recorded. Mental Status None recorded. Family History Relationship Description Onset Age of this Age Resolved Age Notes LastModified by Organization Details LastModified Time Unspecified Relation Malignant neoplastic disease [email or web address] Not available 10/29 08:32:03 Unspecified Relation Myocardial infarction [email or web address] Not available 11/2023 08:32:10 Unspecified Relation Cerebrovascu lar accident [email or web address] Not available 08:32:17 Medical History Condition Response Kidney Disease Y Past Encounters Encounter ID Performer Location Encounter Start Date Encounter Closed Date Diagnosis/Indication Diagnosis SNOMED-CT Code Diagnosis ICD10 Code Diagnosis Note [id number] SATNAM ELKINS PA-C [facility] [address] [place] [address] 10/30/2023 07:50:18 10/31/2023 05:20:07 Low back pain 319585393 M54.50 [id number] VAIBHAV NOLAND APRN [facility] [address] [place] [address] 02/19/2024 12:57:24 02/20/2024 04:09:53 Lumbar spondylolisthesis 6945501000 94337 M43.16 Lumbar spondylosis 22898 0009 M47.896 Health Concerns Section Related Observation LastModified by Organization Detai ls LastModified Time None Recorded Concern Status LastModified by Organization Details LastModified Time None Recorded Advance Directives Directive None Recorded Payers Encounter Date Sequence Insurance Name Policy Number Policy Nj Covered Member ID Nj Member ID Guarantor Name 10/30/2023 1 [employer] [id number] 1 Evie Sue [id number] Evie Sue 02/19/2024 1 [place] Evie Sue [id number] Evie Sue 02/19/2024 2 [facility] - OPTIONS Evie Sue [id number] Evie Sue Notes Date Note Type Note Provider Name and Address Organization Details Recorded Time 10/30/2023 text/html Evie Sue is a 68-year-old male presenting to the clinic with complaints of lower back pain x 6 months. He advises that the pain is intermittent. He has had physical therapy for the pain which would help for a day or 2 after each session. He has also gone to pain management and received an SAGE which gave him 2 days of relief. He denies any pain radiating down his lower extremities. He denies any numbness, paresthesias, weakness, or bowel or bladder concerns. He recently started using lidocaine patches on his lower back which helps the pain. He also takes Tylenol as needed. In 2019, he had an L5-S1 discectomy with Dr. Alex at [facility]. He states that he has a slight residual numbness in the heel of his right foot that has been present since that surgery. SATNAM ELKINS PA-C [address] [place], [address], [facility] 10/30/2023 09:17:42 02/19/2024 text/html Mr. Sue is a 68-year-old man who returns to the office after last being seen 10/30/2023 with continued low back pain that has improved in its severity. He had an updated MRI, CT, and x-rays completed that he is here to review today. VAIBHAV NOLAND, SENIOR CONSULTANT [address], [place], [address], [facility] 02/19/2024 14:32:55
[2024-09-02 13:22] LABS: Microscopic, Urine URINE MICROSCOPIC (MICROSCOPIC)
[2024-09-02 14:05] LABS: Albumin Level 4.3 g/dl (3.5-5.0); Basophils % 0.4 % (0.1-2.0); Chloride 111 mmol/L (98-107); Eosinophils # 0.1 K/mm3 (0.0-0.4); Eosinophils % 1.5 % (0.1-12.0); Hematocrit 50.6 % (42.0-52.0); Hemoglobin 17.6 g/dL (14.1-18.0); Lymphocytes # 1.5 K/mm3 (0.7-4.5); Lymphocytes % 18.5 % (10-50); Mean Corpuscular HGB Conc 34.8 g/dL (31.8-35.4); Mean Corpuscular Hemoglobin 31.4 pg (27.0-31.2); Mean Corpuscular Volume 90.4 fl (80-94); Mean Platelet Volume 10.9 fl (7.4-10.4); Monocytes # 0.6 K/mm3 (0.1-1.0); Monocytes % 7.7 % (1.7-9.3); Neutrophils # 5.8 K/mm3 (1.8-7.8); Neutrophils % 71.7 % (37.0-80.0); Nucleated Red Blood Cells # 0 10^3/uL; Nucleated Red Blood Cells % 0 %; Platelet Count 140 K/mm3 (142-424); Potassium 4.2 mmoL/L (3.5-5.1); Red Cell Distribution Width 13.6 % (11.5-17.5); Red Cell Distribution Width-SD 44.9 fL; Sodium 142 mmol/L (136-145); White Blood Count 8.1 K/mm3 (4.8-10.8)
[2024-09-02 14:08] LABS: Anion Gap 12.2 mEq/L (5-15); Blood Urea Nitrogen 29 mg/dl (9-20); Calcium 8.8 mg/dl (8.4-10.2); Carbon Dioxide 23 mmol/L (22.0-30.0); Estimated Glomerular Filt Rate 41 ml/min (>60); GFR (African American) 49 ML/MIN (>60); Glucose 110 mg/dl (74-100); Phosphorous 3.1 mg/dl (2.5-4.5)
[2024-09-02 14:17] LABS: Appearance,Urine CLEAR (Clear); Bilirubin,Urine Negative (Negative); Blood, Urine Negative (Negative); Color,Urine YELLOW (Yellow); Glucose,Urine (UA) 3+ (Negative); Ketones,Urine Negative (Negative); Leukocyte Esterase,Urine Negative (Negative); Nitrate,Urine Negative (Negative); Protein,Urine Negative (Negative); Urobilinogen,Urine 0.2 EU/dl (0.2)
[2024-09-02 14:37] LABS: Creatinine,Urine Random 87 mg/dL (Not Estab.)
== END 2024-09-02 23:59 | disposition home or self-care (01) ==
LOC: LAB 12:49
PROVIDERS: PCP Nurse Practitioner Family; Visit Provider Student in an Organized Health Care Education/Training Program
DX: N18.30 Chronic kidney disease, stage 3 unspecified (principal)
CPT/HCPCS: 36415; 80069; 81001; 82570; 84156; 85025

== ENCOUNTER 2024-10-13 13:45 | Outpatient (CLI) | payer MEDICARE, SELFPAY ==
--- OUTSIDE RECORDS SUMMARY | 2024-10-13 13:47 | XMS_ITS | Data Portability ---
Author Organization JAYDA PORSHA Estrella FRUITA CLOSED Address [address] [place] [address] Care Team Providers Care Team Supervisor Name Role Phone ADRIAN DELGADILLO Referring Provider [phone] ADRIAN DELGADILLO Primary Care Provider Assessment Encounter [...] questions, concerns, or new or worsening symptoms. Not available 10/30/2023 09:17:29 02/19/2024 02/19/2024 ASSESSMENT: [...] had back surgery with a provider at [facility] in 2019 when he had what sounds [...] CT scan without contrast taken 01/15/2024 at [facility]. Dr. Trammell and I have reviewed the [...] are satisfied with this plan of care. [email or web address] Not available 02/19/2024 14:32:31 Plan of Treatment Reminders Order Date Submit Date Provider Last Modified By Organization Details Last Modified Time Details Appointments None recorded. Lab None recorded. Referral None recorded. Procedures None recorded. Surgeries None recorded. Imaging None recorded. Medication Orders methocarbam ol 750 mg tablet 2023 024 [facility], [address] [address] [place], [id number], 14:25:52 Patient TargetsNo targets recorded. Patient InstructionsNo [...] 2 or 3 view, bendi ng only [address] [facility] [place] [address] Patirandall t Name: EVIE castro : [birth year] [...] Tiffany perez MD on 10/30/19 10:[email or web address] [place] [address] Radiology [facility] [address] [place], [address], 10/30/2023 12:19:59 01/15/20 24 01/15/2024 MRI, lumba r spine , w/wo contr ast No observ ation record ed. [address], [place], [address], 01/19/2024 12:03:03 01/15/20 24 01/15/2024 CT, lumba r spine , w/o contr ast No observ ation record ed. [address] (Scheduling) [address], [place], [address], 01/19/2024 12:02:41 Result Notes None recorded. Procedures Surgical History Date Name Laterality Status Provider Name and Address Organization Details Recorded Time hernia repair completed Holliejosé antonio Santoyo [facility] 10/30/2023 08:32:34 Back Surgery completed Holliejosé antonio MONTELONGO [facility] 10/30/2023 08:32:44 Imaging Results Imaging Date Name Status LastModified by Organiz ation Details LastModified Time 10/12/2023 MRI, lumbar spine, w/o contrast completed [email or web address] Information not available 10/16/2023 10:37:17 10/30/2023 XR, lumbosacral spine, 2 or 3 view, bending only completed [address] Radiology [facility] [address] [place], [address], 10/30/2023 12:19:59 01/15/2024 MRI, lumbar spine, w/wo contrast completed [address], [place], [address], 01/19/2024 12:03:03 01/15/2024 CT, lumbar spine, w/o contrast completed [address] (Scheduling) [address], [place], [address], 01/19/2024 12:02:41 Procedure Notes None recorded. Medical [...] Updated DateTime 10/30/2023 185.42 cm 28.4 kg/m2 55431.3 6 g 134 mm[Hg] 78 mm[Hg] [facility] 08:39:34 Date Recorded Body height Body mass index (BMI) Body weight Systolic blood pressure Diastolic blood pressure Provider Name and Address Organization Details Last Updated DateTime 02/19/2024 185.42 cm 28.4 kg/m2 30392.3 6 g 124 mm[Hg] 84 mm[Hg] [facility] 13:34:23 Social History None recorded. Functional Status [...] SNOMED-CT Code Diagnosis ICD10 Code Diagnosis Note [id number] SATNAM ELKINS PA-C [facility] [address] [place] [address] 10/30/2023 07:50:18 10/31/2023 05:20:07 Low back pain 194053813 M54.50 [id number] VAIBHAV NOLAND APRN [facility] [address] [place] [address] 02/19/2024 12:57:24 02/20/2024 04:09:53 Lumbar spondylolisthesis 7751746593 30862 M43.16 Lumbar spondylosis 66094 0009 M47.896 Health Concerns Section Related Observation LastModified by Organization Detai ls LastModified Time None Recorded Concern Status LastModified by Organization Details LastModified Time None Recorded Advance Directives Directive None Recorded Payers Insurance Date Sequence Insurance Name Policy Number Policy Nj Covered Member ID Nj Member ID Guarantor Name 12/31/2023 1 [facility] [id number] Eive Sue [id number] Evie Sue 11/22/2018 1 *SELF PAY* Da octavio Sue 11/22/2018 [employer] Unknown Evie Sue 10/30/2023 1 [place] [id number] Evie Sue [id number] Evie Sue 02/16/2024 2 [facility] - OPTIONS Evie Sue [id number] Evie Sue 02/16/2024 1 [place] Evie Sue [id number] Evie Sue Notes Date Note Type Note [...] an L5-S1 discectomy with Dr. Alex at [facility]. He states that he has a slight residual numbness in the heel of his right foot that has been present since that surgery. SATNAM ELKINS PA-C [address] [place], [address], [facility] 10/30/2023 09:17:42 02/19/2024 text/html Mr. Sue is a 68-year-old man who returns to the office after last being seen 10/30/2023 with continued low back pain that has improved in its severity. He had an updated MRI, CT, and x-rays completed that he is here to review today. VAIBHAV NOLAND, DIE TRIPPER [address] [place], [address], [facility] 02/19/2024 14:32:55
--- NOTE | 2024-10-13 13:50 | XR_ITS ---
FINAL REPORT CLINICAL HISTORY: Cervical neck pain COMPARISON: None FINDINGS: 3 views of the cervical spine were obtained. No fracture is present. There is advanced degenerative disc disease C5-C7. There is anterolisthesis at C4-5 measuring 4 mm. No prevertebral soft tissue swelling is seen. IMPRESSION: Significant degenerative changes lower cervical spine. Reviewed, Interpreted and Dictated by Pj Puente MD Transcribed by Lizbeth Arias Authenticated and [facility][1]
[2024-10-13 17:48] LABS: Magnesium 1.7 mg/dl (1.6-2.3); Uric Acid 4.6 mg/dl (3.5-8.5)
[2024-10-13 18:19] LABS: Prostate Specific Ag Screen 5.6 ng/ml (0.0-4.0)
== END 2024-10-13 23:59 | disposition home or self-care (01) ==
LOC: RAD 13:46
PROVIDERS: PCP Nurse Practitioner Family; Visit Provider Nurse Practitioner Family
DX: M47.812 Spondylosis without myelopathy or radiculopathy, cervical region (principal); E83.42 Hypomagnesemia; M10.9 Gout, unspecified; R97.20 Elevated prostate specific antigen [PSA]; Z12.5 Encounter for screening for malignant neoplasm of prostate
CPT/HCPCS: 72040; 83735; 84550; G0103

== ENCOUNTER 2024-10-28 12:39 | Outpatient (CLI) | payer MEDICARE, SELFPAY ==
--- OUTSIDE RECORDS SUMMARY | 2024-10-28 12:42 | XMS_ITS | Data Portability ---
Author Organization JAYDA PORSHA [facility] [place] [facility] Address [address] [place] [address] Care Team Providers Care Knitter Mechanic Name Role Phone ADRIAN DELGADILLO Referring Provider [phone] ADRIAN DELGADILLO Primary Care Provider [phone] Assessment Encounter Date Assessment Date Assessment LastModified [...] questions, concerns, or new or worsening symptoms. [email or web address] Not available 10/30/2023 09:17:29 02/19/2024 02/19/2024 ASSESSMENT: [...] had back surgery with a provider at [facility] in 2019 when he had what sounds [...] CT scan without contrast taken 01/15/2024 at [facility] Dr. Trammell and I have reviewed [...] are satisfied with this plan of care. [email or web address] Not available 02/19/2024 14:32:31 Plan of Treatment Reminders Order Date Submit Date Provider Last Modified By Organization Details Last Modified Time Details Appointments None recorded. Lab None recorded. Referral None recorded. Procedures None recorded. Surgeries None recorded. Imaging None recorded. Medication Orders methocarbam ol 750 mg tablet 2023 024 [facility], [address] [address] [place], [id number], 14:25:52 Patient TargetsNo targets recorded. Patient InstructionsNo [...] 2 or 3 view, bendi ng only [id number] [facility] [place] [address] Patirandall t Name: EVIE castro : [birth year] [...] Tiffany perez MD on 10/30/19 10:[email or web address] [place] [address] Radiology [facility] [address] [place], [address], 10/30/2023 12:19:59 01/15/20 24 01/15/2024 MRI, lumba r spine , w/wo contr ast No observ ation record ed. [address], [place], [address], 01/19/2024 12:03:03 01/15/20 24 01/15/2024 CT, lumba r spine , w/o contr ast No observ ation record ed. [address] (Scheduling) [address], [place], [address], 01/19/2024 12:02:41 Result Notes None recorded. Procedures Surgical History Date Name Laterality Status Provider Name and Address Organization Details Recorded Time hernia repair completed [facility] 10/30/2023 08:32:34 Back Surgery completed [facility] 10/30/2023 08:32:44 Imaging Results None recorded. Procedure Notes None recorded. Medical Equipment None [...] Updated DateTime 10/30/2023 185.42 cm 28.4 kg/m2 39592.3 6 g 134 mm[Hg] 78 mm[Hg] [facility] 4 08:39:34 Date Recorded Body height Body mass index (BMI) Body weight Systolic blood pressure Diastolic blood pressure Provider Name and Address Organization Details Last Updated DateTime 02/19/2024 185.42 cm 28.4 kg/m2 72206.3 6 g 124 mm[Hg] 84 mm[Hg] [facility] 4 13:34:23 Social History None recorded. Functional Status [...] SNOMED-CT Code Diagnosis ICD10 Code Diagnosis Note [id number] SATNAM ELKINS PA-C [facility] [address] [place] [address] 10/30/2023 07:50:18 10/31/2023 05:20:07 Low back pain 407817218 M54.50 [id number] VAIBHAV NOLAND APRN [facility] [address] [place] [address] 02/19/2024 12:57:24 02/20/2024 04:09:53 Lumbar spondylolisthesis [id number] 29430 M43.16 Lumbar spondylosis 21155 0009 M47.896 Health Concerns Section Related Observation LastModified by Organization Detai ls LastModified Time None Recorded Concern Status LastModified by Organization Details LastModified Time None Recorded Advance Directives Directive None Recorded Payers Insurance Date Sequence Insurance Name Policy Number Policy Nj Covered Member ID Nj Member ID Guarantor Name 12/31/2023 1 [facility] [id number] Evie T Vikram [id number] Evie T Vikram 11/22/2018 1 *SELF PAY* Da octavio Sue 11/22/2018 [employer]AREN [employer] Unknown Evie Sue 10/30/2023 1 [place] [id number] Evie T Vikram [id number] Evie Sue 02/16/2024 2 [facility] Evie Sue [id number] Eive Sue 02/16/2024 1 [place] Evie Sue [id number] Evie Sue Notes Date Note Type Note [...] an L5-S1 discectomy with Dr. Alex at [facility]. He states that he has a slight residual numbness in the heel of his right foot that has been present since that surgery. SATNAM ELKINS PA-C [address] [place], [address], [facility] 10/30/2023 09:17:42 02/19/2024 text/html Mr. Sue is a 68-year-old man who returns to the office after last being seen 10/30/2023 with continued low back pain that has improved in its severity. He had an updated MRI, CT, and x-rays completed that he is here to review today. VAIBHAV NOLAND APRN [address] [place], [address], [facility] 02/19/2024 14:32:55
--- OUTSIDE RECORDS SUMMARY | 2024-10-28 12:42 | XMS_ITS | Clinical Summary ---
Author Organization [facility] Address [address] [place] [address] Care Team Providers Care Rapier Insertion Loom Fixer Name Role Phone Romel oSuza MD Primary Care Provider [phone] Allergies No known active allergies Medications Jardiance 10 MG 1 tablet (10 mg) 1 (one) time each day. 09/22/2023 Active Entresto 24-26 MG tablet 1 tablet 2 (two) times a day. 12/17/2023 Active bisoprolol (Zebeta) 10 MG tablet 1 tablet (10 mg) 1 (one) time each day. 10/13/2023 Active Omeprazole Magnesium (PRILOSEC PO) Active allopurinol (Zyloprim) 100 MG tablet 1 tablet (100 mg) 1 (one) time each day. 05/26/2023 Active atorvastatin (Lipitor) 10 MG tablet 1 tablet (10 mg) 1 (one) time each day. 01/04/2024 Active levocetirizine (Xyzal) 5 MG tablet 02/03/2024 Active Methenamine-Sodi um Salicylate 162-162.5 MG tablet Take 1 tablet by mouth twice a day. 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 03/02/2024 Social History Tobacco Use Types Packs/Day Years Used Date Smoking Tobacco: Former Cigarettes Smokeless Tobacco: Never Tobacco Cessation:Counseling Given: Not Answered PHQ-2 Answer Date Recorded Patient Health Questionnaire-2 Score 0 03/16/2024 Sex and Gender Information Value Date Recorded Sex Assigned at Not on file Legal Sex Male 6:13 PM EDT Gender Identity Not on file Sexual Orientation Not on file Last Filed Vital Signs Vital Sign Reading Time Taken Comments Blood Pressure 129/78 05/05/2024 12:35 PM EST Pulse 66 05/05/2024 12:35 PM EST Temperature 36.7 C (98.1 F) 02/23/2024 1:51 AM EDT Respiratory Rate 16 02/23/2024 1:51 AM EDT Oxygen Saturation 95% 05/05/2024 12:35 PM EST Inhaled Oxygen Concentration - - Weight 97.5 kg (215 lb) 05/05/2024 12:35 PM EST Height 185.4 cm (6' 1 ) 05/05/2024 12:35 PM EST Body Mass Index 28.37 05/05/2024 12:35 PM EST Plan of Treatment Health Maintenance Due Date Last Done Comments [facility]-Hepatitis C Screening 1955 [facility]-Medicare Annual Wellness (AWV) 1955 [facility]-Infant/Child/Adol SDOH Screenings 1955 [facility]- SDOH Screenings 09/27/1975 [facility]-Adult SDOH Screenings 09/27/1975 CT Colonography 2002 Colonoscopy 2002 FIT-DNA 2002 FIT 2002 FOBT 2002 Sigmoidoscopy 2002 [facility]-Colorectal Cancer Screening 2002 [facility]-Pneumococcal Vaccine: 50+ Years (1 of 1 - PCV) 09/27/2007 [facility]-Zoster Vaccines (1 of 2) 09/27/2007 [facility]-Abdominal Aortic Aneurysm (AAA) Screening 2022 VEA-CPCOR-95 Vaccine ( season) 2024 10/28/2021, 04/09/2021, 08/05/2020, Additional history exists [facility]-Depression Screening 03/16/2025 03/16/2024 [facility]-RSV Vaccine: 60+ Years or (1 - 1-dose 75+ series) 2032 [facility]-DTaP,Tdap,and Td Vaccines (2 - Td or Tdap) 02/21/2034 02/22/2024 [facility]-Influenza Vaccine Completed 04/06/2024, 023 [facility]-Obesity Intervention Completed 024, 04/13/2024, 04/13/2024, Additional history exists HPV Vaccines Aged Out No longer eligi ble based on patient's age to complete this topic [facility]-HIB Vaccines Aged Out No longer e ligible based on patient's age to complete this topic [facility]-Hepatitis A Vaccines Aged Out No longer eligible based on patient's age to complete this topic [facility]-IPV Vaccines Aged Out No longer e ligible based on patient's age to complete this topic [facility]-Rotavirus Vaccines Aged Out No lo nger eligible based on patient's age to complete this topic Goals Goal Patient Goal Type Associated Problems Recent Progress Patient-Stated? Author OT Goal Occupational Therapy Brunilda Brewster Insurance MEDICARE Member Subscriber Plan / Payer (Ef fective 2023-Present) Name:Andrzej Elmore Member ID:[id number] Relation to Subscriber:Self Name:Andrzej Elmore Subscriber ID:[id number] Payer ID:MEDICARE Group ID:Not on file Type:Medicare Address: [address] [phone] GENERIC WORKERS COMP MEDICARE Care Teams Rapier Insertion Loom Fixer Relationship Specialty Start Date End Date Romel Souza MD [address] [facility] [place] [address] PCP - General 10/05/20
--- NOTE | 2024-10-28 13:00 | MR_ITS ---
FINAL REPORT TECHNIQUE: Multiplanar and multisequence imaging of the cervical spine was obtained. CLINICAL HISTORY: cervical neck pain ddd COMPARISON: None FINDINGS: There is mild anterolisthesis of C4 on C5. Vertebral body height is preserved. Signal intensity within the substance of the spinal cord is normal. No acute bone marrow edema. No acute paraspinal abnormality. C2/3: An annular bulge is present with degenerative endplate changes and facet osteoarthropathy. There is mild right and moderate left neural foraminal narrowing. C3/4: There is an annular bulge present, with degenerative endplate changes and facet osteoarthropathy. There is severe bilateral neural foraminal narrowing. C4/5: An annular bulge is present with degenerative endplate changes and facet osteoarthropathy. There is severe right and mild to moderate left neural foraminal narrowing. C5/6: An annular bulge is present with degenerative endplate changes and facet osteoarthropathy. There is severe bilateral neural foraminal narrowing. C6/7: An annular bulge is present with degenerative endplate changes and facet osteoarthropathy. There is severe bilateral neural foraminal narrowing. C7/T1: There is no focal disc herniation, central stenosis or neural foraminal narrowing. IMPRESSION: Multilevel degenerative change is present as described above, with multilevel moderate to severe bilateral neural foraminal narrowing. Reviewed, Interpreted and Dictated by Sarah Baer MD Transcribed by Genevieve Olvera Authenticated and [facility]
== END 2024-10-28 23:59 | disposition home or self-care (01) ==
LOC: RAD 12:40
PROVIDERS: PCP Nurse Practitioner Family; Visit Provider Nurse Practitioner Family
DX: M47.812 Spondylosis without myelopathy or radiculopathy, cervical region (principal); M99.71 Connective tissue and disc stenosis of intervertebral foramina of cervical region
CPT/HCPCS: 72141

== ENCOUNTER 2024-11-21 17:00 | Outpatient (RCR) | payer MEDICARE, SELFPAY ==
--- NOTE | 2024-10-31 16:57 | HMH.PTOPEV ---
PT Outpatient Evaluation Rehab PT Outpatient Evaluation Start: 10/31/24 15:56 Freq: Status: Active Protocol: Document 10/31/24 15:57 SHARRIRosy (Rec: 10/31/24 16:57 PAULO [id number]) E-signed By Valeria Restrepo, PT Outpatient Therapy Subjective History Subjective History Pt is a 69 y/o male who reports chronic neck pain for years with gradual worsening overtime. Pt denies recent trauma or injury. Pt had a cervical spine MRI on 10/28/24 with impression of Multilevel degenerative change is present as described above, with multilevel moderate to severe bilateral neural foraminal narrowing . Pt reports pain is aggravated by looking up and looking over his shoulders especially for prolonged periods. Pt also reports intermittent sharp, shooting pain into the right side of the neck to the occiput. Pt reports intermittent numbness/tingling of bilateral hands, denies other UE symptoms or paresthesia. Work: [employer] Medical History: Hyperlipidemia, Hypertension, GERD, CKD, Gout, Heart failure Observation: forward head posture with increased thoracic kyphosis New diagnosis of No cancer in past 12 months? Chief Complaint Pain,Stiff Symptom Type Ache,Sharp,Dull Symptoms Relieved By Rest/Positioning Symptoms Aggravated Physical Activity By Symptom Description Constant but Variable Level of pain today 2 (0-10) Pain scale - at its 1 best (0-10) Pain scale - at its 6 worst (0-10) Cervical Eval Palpation Cervical Muscles R Cervical Paraspinal,R Upper Trapezius,L Upper Trapezius Cervical/Thoracic Tenderness Palpation Findings Flexibility Deficits Upper Trapezius (R) Moderate Tightness,(L) Moderate Tightness Muscle Length Levaetor Scapulae (R) Moderate Tightness,(L) Moderate Tightness Muscle Length Pectoralis Major (R) Mild Tightness,(L) Mild Tightness Muscle Length Pectoralis Minor (R) Mild Tightness,(L) Mild Tightness Muscle Length Passive Joint Mobility Cervical PIVM Dec: R C5/6 L C5/6 R C6/7 L C6/7 R C7/T1 L C7/T1 AROM Cervical Spine 40 Extension Active Range of Motion ( degrees) Cervical Spine 40 Flexion Active Range of Motion (degrees) Cervical Spine Right 30 Lateral Flexion Active Range of Motion (degrees) Cervical Spine Left 25 Lateral Flexion Active Range of Motion (degrees) Cervical Spine Right 50 Rotation Active Range of Motion ( degrees) Cervical Spine Left 60 Rotation Active Range of Motion ( degrees) MMT Bilateral Deltoid (C5) 5 Normal Biceps Brachii 5 Normal Strength Grade Wrist Extension 5 Normal Strength Grade Triceps Brachii 5 Normal Strength Grade Wrist Flexion 5 Normal Strength Grade Altered Sensation Comment equal and intact to light touch sensation bilaterally Special Test C-Spine Foraminal Negative Left,Negative Right Compression ( [place]) Test C-spine Verterbral Central P/A [place],Right P/A [place],Left P/A [place] Accessory Movements that Elicit Symptoms C-Spine Compression Negative Left,Negative Right Test Shoulder/Elbow Eval Shoulder Objective Measurements Shoulder MMT Bilateral Lower Trapezius 4 Good Strength Grade Middle Trapezius 4 Good Strength Grade Rhomboids Strength 4 Good Grade Elbow Objective Measurements Neck Disability Index Neck Disability Index Section 1: Pain The pain is moderate at the moment Intensity Section 2: Personal I can look after myself normally but it causes extra Care (washing, pain dressing, etc.) Section 3: Lifting I can lift heavy weights without extra pain Section 4: Reading I can read as much as I want with moderate pain in my neck Section 5: Headaches I have slight headaches, which come infrequently Section 6: I have a fair degree of difficulty in concentrating Concentration when I want to Section 7: Work I can do most of my usual work, but no more Section 8: Driving I can drive my car as long as I want with slight pain in my neck Section 9: Sleeping My sleep is midly disturbed (1-2 hrs sleepless) Section 10: I am able to engage in all my recreation activities Recreation with some pain in NDI Score 14 Outpatient Therapy Assessment Impairments Problems/ Palpation Tenderness,Impaired Range of Motion,Impaired Impairmments Strength,Impaired Driving,Impaired Work Activities, Subjective C/O Pain,Impaired Self Care/Self Management Prognosis Rehab Potential Good Clinical Impression Consistent with Yes Diagnosis Short Term Goals Number of Weeks 3 Increase Range of Yes: Improve cervical AROM L LF to at least 30 Motion Decrease Subjective Yes: Improve pain at best to 0/10 to improve overall C/O Pain QOL Improve Self Care/ Yes Self Management Patient to be Ind w/ Yes HEP [facility] Goals Number of Weeks 6 Decreased Palpation Yes: 0-1/4 TTP of cervical musculature and lower Tenderness cervical spine Increase Range of Yes: Improve cervical AROM flex/ext to 45, LF to at Motion least 35, R rot to 60 Increase Strength Yes: Improve scapular strength to 4+/5 grossly to assist with posture/function Improve Tolerance to Yes: report ability to work a full shift with pain 4/10 Work Activities or less Improve Neck Yes: Improve score to 9 or less to improve overall QOL Disability Index Score Decrease Subjective Yes: Improve pain at worst to 2-4/10 to improve overall C/O Pain QOL Outpatient Therapy Plan of Care Treatment Plan May Include Therapeutic Exercise Yes Including Home Exercise Program Manual Therapy Yes Techniques Neuromuscular Re- Yes education Therapeutic Yes Activities to Return to Previous Functional/Work Level ADL/Self Care Yes Education Mechanical Traction Yes Dry Needling Yes Thermal Modalities Yes Electrical Yes Stimulation Ultrasound/ Yes Phonophoresis Iontophoresis Yes Massage Yes Eval/Re-Eval Yes Frequency Times per week 2 Duration Number of Weeks 4-6 Addendums This patient is a No candidate for social or vocational rehab ? Patient/Guardian Yes verbally acknowledges understanding of treatment program and consents to further treatment? Patient/Guardian Yes verbally acknowledges understanding of diagnosis, prognosis and goals for treatment? PHYSICIAN CERTIFICATION: I certify the specified therapy services for Andrzej Sue are required, authorized, and reviewed every 30 days.
== END 2024-11-21 23:59 | disposition home or self-care (01) ==
LOC: PT 17:00
PROVIDERS: PCP Nurse Practitioner Family; Visit Provider Nurse Practitioner Family
DX: M54.2 Cervicalgia (principal)
CPT/HCPCS: 97014; 97110; G0283

== ENCOUNTER 2024-12-20 17:00 | Outpatient (RCR) | payer MEDICARE, SELFPAY ==
--- NOTE | 2024-12-08 17:18 | HMH.RHREAS ---
Rehab Reassessment Rehab OP Re-assessment Start: 12/08/24 17:10 Freq: Status: Active Protocol: Document 12/08/24 17:11 PHOLiseYARA (Rec: 12/08/24 17:17 PHORNE [id number]) E-signed By Bernard Sawant, PT Neck Disability Index Neck Disability Index Section 1: Pain The pain is very mild at moment Intensity Section 2: Personal I can look after myself normally but it causes extra Care (washing, pain dressing, etc.) Section 3: Lifting I can lift heavy weights but it gives extra pain Section 4: Reading I can read as much as I want to with slight pain in my neck Section 5: Headaches I have no headaches at all Section 6: I can concentrate fully when I want to with no Concentration difficulty Section 7: Work I can only do my usual work, but no more Section 8: Driving I can drive my car as long as I want with slight pain in my neck Section 9: Sleeping My sleep is midly disturbed (1-2 hrs sleepless) Section 10: I am able to engage in all my recreation activities Recreation with some pain in NDI Score 9 Rehab Re-assessment Subjective Subjective Pt reports no pain in his neck at rest at this time, 0/ 10. He does report he continues to feel stiff, especially with truning hie head and looking up which he is required to do often at work. Objective Objective Notes AROM Cervical Spine (in deg): FLEX 0-60, EXT 0-30, R SB 0-30, L SB 0-25, R ROT 0-60, L ROT 0-55 MMT: Low and middle trap 4+/5, otherwise periscapular mm are 5/5. TTP: 0/4 throughout c-spine. Assessment Progress Assessment Progressing as Expected Assessment Notes Pt has shown improvements in overall pain, but continues to show decreased cervical spine AROM. Skilled therapy remains indicated in order to improve ROM and strength in order to return pt to PLOF without pain. Patient goals met ST LT/6 Plan Plan Continue per initial POC. Frequency of Therapy 2 x/wk Duration of therapy 4 wks Time and Billing Re-Eval Time 11 Re-Eval Billing 0 Units Charge for PT No reassessment? PHYSICIAN CERTIFICATION: I certify the specified therapy services for Andrzej Sue are required, authorized, and reviewed every 30 days.
== END 2024-12-20 23:59 | disposition home or self-care (01) ==
LOC: PT 17:00
PROVIDERS: PCP Nurse Practitioner Family; Visit Provider Nurse Practitioner Family
DX: M54.2 Cervicalgia (principal)
CPT/HCPCS: 97010; 97110

== ENCOUNTER 2024-12-30 10:00 | Outpatient (RCR) | payer MEDICARE, SELFPAY | END 2024-12-30 23:59 | disposition home or self-care (01) | LOC: PT 10:00 | PROVIDERS: PCP Nurse Practitioner Family; Visit Provider Nurse Practitioner Family | DX: M54.2 Cervicalgia (principal) | CPT/HCPCS: 97110; 97140 ==

== ENCOUNTER 2025-03-21 08:24 | Outpatient (CLI) | payer MEDICARE, SELFPAY ==
[2025-03-21 09:04] LABS: Hematocrit 48.0 % (42.0-52.0); Hemoglobin 17.1 g/dL (14.1-18.0); Immature Granulocytes % 0.4 %; Mean Corpuscular HGB Conc 35.6 g/dL (31.8-35.4); Mean Corpuscular Hemoglobin 32.4 pg (27.0-31.2); Mean Corpuscular Volume 90.9 fl (80-94); Nucleated Red Blood Cells % 0 %; Platelet Count 124 K/mm3 (142-424); Red Blood Count 5.28 M/mm3 (4.60-6.20); Red Cell Distribution Width-SD 45.2 fL; White Blood Count 7.7 K/mm3 (4.8-10.8)
[2025-03-21 09:45] LABS: Alanine Aminotransferase 24 U/L (12-78); Albumin Level 3.4 g/dl (3.5-5.0); Albumin/Globulin Ratio 1.1 (1.1-1.8); Alkaline Phosphatase 101 U/L (38-126); Anion Gap 11.8 mEq/L (5-15); Aspartate Amino Transferase 30 U/L (17-59); Bilirubin,Total 0.8 mg/dl (0.2-1.3); Blood Urea Nitrogen 36 mg/dl (9-20); Calcium 8.8 mg/dl (8.4-10.2); Carbon Dioxide 22 mmol/L (22.0-30.0); Chloride 107 mmol/L (98-107); Cholesterol 154 mg/dl (140-200); Creatinine,Serum 1.60 mg/dl (0.66-1.25); Estimated Glomerular Filt Rate 43 ml/min (>60); GFR (African American) 52 ML/MIN (>60); Globulin 3.0 g/dL (1.3-3.2); Glucose 111 mg/dl (74-100); HDL Cholesterol 45 mg/dl (40-60); Potassium 3.8 mmoL/L (3.5-5.1); Sodium 137 mmol/L (136-145); Total Protein,Serum 6.4 g/dl (6.3-8.2); Triglycerides 152 mg/dl (30-150); Uric Acid 6.1 mg/dl (3.5-8.5)
[2025-03-21 10:05] LABS: 25-OH Vitamin D, Total 48.8 ng/mL (30-100)
[2025-03-21 10:18] LABS: Free T4 (Free Thyroxine) 0.93 ng/dl (0.78-2.19)
[2025-03-21 10:19] LABS: Thyroid Stimulating Hormone 1.60 uIU/mL (0.465-4.68)
[2025-03-21 10:38] LABS: Vitamin B12 428 pg/mL (239-931)
[2025-03-21 11:06] LABS: Hemoglobin A1C 5.2 % (4.0-6.0)
[2025-03-21 13:41] LABS: Microscopic, Urine URINE MICROSCOPIC (MICROSCOPIC)
[2025-03-21 15:04] LABS: Bilirubin,Urine Negative (Negative); Color,Urine YELLOW (Yellow); Glucose,Urine (UA) 2+ (Negative); Ketones,Urine Negative (Negative); Leukocyte Esterase,Urine Negative (Negative); PH,Urine 6.0 (5.0-8.5); Protein,Urine Negative (Negative); Specific Gravity, Urine <= 1.005 (1.005-1.030); Urobilinogen,Urine 0.2 EU/dl (0.2)
[2025-03-21 16:00] LABS: WBC,Urine Occasional #/hpf (0-3)
== END 2025-03-21 23:59 | disposition home or self-care (01) ==
LOC: LAB 08:26
PROVIDERS: PCP Nurse Practitioner Family; Visit Provider Nurse Practitioner Family
DX: Z00.00 Encounter for general adult medical examination without abnormal findings (principal); J32.9 Chronic sinusitis, unspecified; Z13.31 Encounter for screening for depression; K21.9 Gastro-esophageal reflux disease without esophagitis; M10.9 Gout, unspecified; N31.2 Flaccid neuropathic bladder, not elsewhere classified; Z11.4 Encounter for screening for human immunodeficiency virus [HIV]; Z11.59 Encounter for screening for other viral diseases; G47.33 Obstructive sleep apnea (adult) (pediatric); E11.9 Type 2 diabetes mellitus without complications; R41.3 Other amnesia; J30.9 Allergic rhinitis, unspecified; I13.0 Hypertensive heart and chronic kidney disease with heart failure and stage 1 through stage 4 chronic kidney disease, or unspecified chronic kidney disease; I50.9 Heart failure, unspecified; N18.9 Chronic kidney disease, unspecified; E78.5 Hyperlipidemia, unspecified
CPT/HCPCS: 36415; 80053; 80061; 81001; 82043; 82306; 82570; 82607; 83036; 84156; 84439; 84443; 84550; 85025; 87086; 87389

== ENCOUNTER 2025-04-22 07:47 | Outpatient (CLI) | payer MEDICARE, SELFPAY ==
--- OUTSIDE RECORDS SUMMARY | 2025-04-22 07:49 | XMS_ITS | Clinical Summary ---
Author Organization [facility] Address [address] [place] [address] Care Team Providers Care Primary Health Organisation Manager Name Role Phone Romel Souza MD Primary Care Provider [phone] Allergies No known active allergies Medications Jardiance [...] Last Done Comments [facility]-Hepatitis C Screening 1955 [facility]-Medicare Annual Wellness (AWV) 1955 [facility]-/Child/Adol SDOH Screenings 1955 [facility]- SDOH Screenings 09/27/1975 [facility]-Adult SDOH Screenings 09/27/1975 CT Colonography 2002 Colonoscopy 2002 FIT-DNA 2002 FIT 2002 FOBT 2002 Sigmoidoscopy 2002 [facility]-Colorectal Cancer Screening 2002 [facility]-Pneumococcal Vaccine: 50+ Years (1 of 1 - PCV) 09/27/2007 [facility]-Zoster Vaccines (1 of 2) 09/27/2007 [facility]-Abdominal Aortic Aneurysm (AAA) Screening 2022 [id number]-70 Vaccine ( season) 2025 10/28/2021, 04/09/2021, 08/05/2020, Additional history exists [facility]-Influenza Vaccine (#1) 2025 04/06/2024, [facility]-Depression Screening 03/16/2025 03/16/2024 [facility]-RSV Vaccine: 60+ Years or (1 - 1-dose 75+ series) 2032 [facility]-DTaP,Tdap,and Td Vaccines (2 - Td or Tdap) 02/21/2034 02/22/2024 [facility]-Obesity Intervention Completed 024, 04/13/2024, 04/13/2024, Additional [...] Goal Occupational Therapy Brunilda Brewster Insurance MEDICARE [employer] WORK[employer] COMP MEDICARE Care Teams Primary Health Organisation Manager Relationship Specialty Start Date End Date Romel Souza MD [address] [place] [address] PCP - General 10/05/20
--- OUTSIDE RECORDS SUMMARY | 2025-04-22 07:50 | XMS_ITS | Data Portability ---
Author Organization [facility] [place] Arrieta DECATUR CLOSED Address [address] [place] [address] Care Team Providers Care Manager Line Name Role Phone ADRIAN DELGADILLO Referring Provider [phone] ADRIAN DELGADILLO Primary Care Provider Assessment Encounter Date Assessment Date Assessment LastModified by Organization Details LastModified Time 10/30/2023 10/30/2023 Evie Sue is a 68-year-old male presenting to the clinic with complaints of lower back pain x 6 months. His lumbar MRI from 10/12/2023 was reviewed by myself and Dr. Smallwood. He was noted to have severe right [...] Not available 10/30/2023 09:17:29 02/19/2024 02/19/2024 ASSESSMENT: Rualito Sue is a pleasant 68-year-old man who [...] had back surgery with a provider at [facility] in 2019 when he had [...] CT scan without contrast taken 01/15/[address] [facility]. Smallwood and I have reviewed the images personally [...] images to our PACS. Seen by Dr. Smallwood and myself PLAN: Refer to Dr. Santana [...] are satisfied with this plan of care. [email or web address] Not available 02/19/2024 14:32:31 Plan of Treatment Reminders Order Date Submit Date Provider Last Modified By Organization Details Last Modified Time Details Appointments None recorded. Lab None recorded. Referral None recorded. Procedures None recorded. Surgeries None recorded. Imaging None recorded. Medication Orders methocarbam ol 750 mg tablet 2023 024 J[facility], [address] [place] [address] [place], [id number], 14:25:52 Patient TargetsNo targets recorded. Patient InstructionsNo [...] 2 or 3 view, bendi ng only [place] [address] [place] [place] [address] Patirandall t Name: EVIE castro : [birth year] 60 Patirandall t 0 Orderi ng Provid er: PHILMICHAEL [...] Tiffany perez MD on 10/30/19 10:[address] Radiology [facility] [address] [facility], [place], [address], 10/30/2023 12:19:59 01/15/20 24 01/15/2024 MRI, lumba r spine , w/wo contr ast No observ ation record ed. [address], [place], [address], 01/19/2024 12:03:03 01/15/20 24 01/15/2024 CT, lumba r spine , w/o contr ast No observ ation record ed. [address] (Scheduling) [address], [place], [address], 01/19/2024 12:02:41 Result Notes Documentation Provider Name and Address Organization Details Recorded Time Xr, Lumbosacral Spine, 2 Or 3 View, Bending Only : [facility] [address] [place] [address] Patient Name: EVIE SUE Patient : 1955 Patient Ordering Provider: PHIL SMALLWOOD EXAM DATE: 10/30/2023 EXAM: XR LUMBAR SPINE FLEX/EXT ONLY HISTORY: Low back pain COMPARISON: None. FINDINGS: There is anterior listhesis of L4 on L5. This measures approximately 6 mm with flexion and extension. There is mild anterior marginal spurring. No fracture is identified. IMPRESSION: 1. There are mild degenerative changes in the lumbar spine. Interpreted By: Lew Clifford MD SMALLWOOD MD [address] [place] [address], [id number] 10/30/2023 12:19:59 Procedures Surgical History Date Name Laterality Status Provider Name and Address Organization Details Recorded Time hernia repair completed [facility] Natanael Arnold [facility] 10/30/2023 08:32:34 Back Surgery completed Hollie Natanael [facility] 10/30/2023 08:32:44 Imaging Results None recorded. Procedure [...] Body mass index (BMI) Body weight Systolic And Diastolic Provider Name and Address Organization Details Last Updated DateTime 10/30/2023 185.42 cm 28.4 kg/m2 03363.36 g 134/78 mm[Hg] [facility] 10/30/2023 08:39:34 Date Recorded Body height Body mass index (BMI) Body weight Systolic And Diastolic Provider Name and Address Organization Details Last Updated DateTime 02/19/2024 185.42 cm 28.4 kg/m2 00922.36 g 124/84 mm[Hg] [facility] 02/19/2024 13:34:23 Social History None recorded. Functional Status [...] Diagnosis SNOMED-CT Code Diagnosis ICD10 Code Diagnosis IMO Codes Diagnosis Note [id number] SATNAM ELKINS PA-C [facility] [address] [place] [address] 10/30/2023 07:50:18 10/31/2023 05:20:07 Low back pain 041923398 M54.50 [id number] VAIBHAV NOLAND APRN [facility] [address] [place] [address] 02/19/2024 12:57:24 02/20/2024 04:09:53 Lumbar spondylolisthesis [id number] 51202 M43.16 Lumbar spondylosis 42012 0009 M47.896 Health Concerns Section Related Observation LastModified by Organization Detai ls LastModified Time None Recorded Concern Status LastModified by Organization Details LastModified Time None Recorded Advance Directives Directive None Recorded Payers Insurance Date Sequence Insurance Name Policy Number Policy Nj Covered Member ID Nj Member ID Guarantor Name 12/31/2023 1 [place] [id number] Evie Sue [id number] Evie Sue 11/22/2018 1 *SELF PAY* Da octavio Sue 11/22/2018 [employer]AR[employer] [place] Unknown Evie Sue 10/30/2023 1 [place] [id number] Evie Sue [id number] Evie Sue 02/16/2024 2 AARP Evie Sue [id number] Evie Sue 02/16/2024 1 [place] Evie Sue [id number] Evie Sue Notes Date Note Type Note [...] an L5-S1 discectomy with Dr. Alex at [facility]. He states that he has a slight residual numbness in the heel of his right foot that has been present since that surgery. SATNAM ELKINS PA-C [address] [place], [address], [facility] 10/30/2023 09:17:42 02/19/2024 text/html ROS as noted in the HPI Mr. Sue is a 68-year-old man who returns to the office after last being seen 10/30/2023 with continued low back pain that has improved in its severity. He had an updated MRI, CT, and x-rays completed that he is here to review today. VAIBHAV NOLAND, OUT OF TOWN COLLECTION CLERK [address] [place], [address], [facility] 02/19/2024 14:32:55
--- OUTSIDE RECORDS SUMMARY | 2025-04-22 07:50 | XMS_ITS | Clinical Summary ---
Author Organization [facility] Address [address] [place] [address] Care Team Providers Care Biometrics Analyst Name Role Phone Romel Souza MD Primary Care Provider + Allergies Active Allergy Reactions Criticality Noted Date Comments Contrast Dye (Echo Or Unknown Ct/Mr) Other (See Comments) High 06/23/2019 Patient has baseline kidney disease and cannot have contrast dye. Medications lisinopril (PRINIVIL,ZESTRI L) 2.5 MG tablet Take 2.5 mg by mouth Daily. Active allopurinol (ZYLOPRIM) 100 MG tablet Take 100 mg by mouth Daily. Active pregabalin (LYRICA) 150 MG capsule Take 150 mg by mouth 2 (Two) Times a Day. Active sodium bicarbonate 650 MG tablet Take 650 mg by mouth 2 (Two) Times a Day. Active Multiple Vitamins-Mineral s (CENTRUM ADULTS PO) Take 1 tablet by mouth Daily. Active aspirin 81 MG chewable tablet Chew 81 mg Daily. Active Methenamine-Sodi um Salicylate (CYSTEX PO) Take 1 tablet by mouth 2 (Two) Times a Day. Active atorvastatin (LIPITOR) 10 MG tablet TAKE ONE TABLET BY MOUTH ONCE A DAY 30 tablet 2 09/11/2021 Active Active Problems Problem Noted Date Diagnosed Date Right leg pain 06/23/2019 Lumbar disc herniation 06/23/2019 Family History Medical History Relation Name Comments Heart attack Father Heart attack Mother Relation Name Status Comments Father Mother Social History Tobacco Use Types Packs/Day Years Used Date Smoking Tobacco: Former Cigarettes 2 45 0 06/29/1958 - 06/29/2003 Smokeless Tobacco: Never Alcohol Use Standard Drinks/Week Comments Yes 0 (1 standard drink = 0.6 oz pur e alcohol) rarely Abuse Screen Answer Date Recorded Unsafe at Home or Work/School Not on file Feels Threatened by Someone? Not on file 04/2023 Does Anyone Keep You from Co ntacting Others or Doint Things Outside the Home? Not on file 03/05/2023 Physical Sign of Abuse Present Not on file 1 Housing Stability Answer Date Recorded Current Living Arrangements Not on file 02/22 Potentially Unsafe Housing Conditions Not on kodi e 03/05/2023 Family and Community Support Answer Giacomo e Recorded Help with Day-to-Day Activities Not on file 03/05/2023 Lonely or Isolated Not on file 03/05/2023 Employment Answer Date Recorded Do you want help finding or keeping work or a ahmet b? Not on file 03/05/2023 Disabilities Answer Date Recorded Concentrating, Remembering, or Making Decisions Difficulty Not on file 03/05/2023 Doing Errands Independently Difficulty Not on fi le 03/05/2023 Education Answer Date Recorded Help with school or training? Not on file Preferred Language Not on file 03/05/2023 Sex and Gender Information Value Date Recorded Sex Assigned at Not on file Legal Sex Male 2:41 PM EST Gender Identity Not on file Sexual Orientation Not on file Last Filed Vital Signs Vital Sign Reading Time Taken Comments Blood Pressure 112/84 07/28/2019 10:45 AM EST Pulse 68 07/06/2019 12:35 PM EST Temperature 36.7 C (98.1 F) 07/28/2019 10:45 AM EST Respiratory Rate 16 07/06/2019 12:35 PM EST Oxygen Saturation 96% 07/06/2019 12:35 PM EST Inhaled Oxygen Concentration - - Weight 97.2 kg (214 lb 3.2 oz) 07/28/2019 10:45 AM EST Height 185.4 cm (6' 1 ) 07/28/2019 10:45 AM EST Body Mass Index 28.26 07/28/2019 10:45 AM EST Plan of Treatment Health Maintenance Due Date Last Done Comments TDAP/TD VACCINES (1 - Tdap) 1976 COLOGUARD 2002 COLON CANCER SCREENING 5 YEAR SIGMOIDOSCOPY 2002 COLONOSCOPY 2002 COLORECTAL CANCER SCREENING 2002 CT COLONOGRAPHY 2002 FECAL OCCULT BLOOD TEST 2002 FIT Testing (1 year) 2002 Pneumococcal Vaccine 50+ (1 of 1 - PCV) 09/27/2007 ZOSTER VACCINE (1 of 2) 09/27/2007 ANNUAL PHYSICAL 06/23/2019 HEPATITIS C SCREENING 06/23/2019 AAA SCREEN ONCE 2022 INFLUENZA VACCINE 12/23/2024 COVID-19 Vaccine ( season) [address] [facility] Subscriber Plan / Payer (Ef fective 2017-Present) Name:Andrzej Sue Relation to Subscriber:Self Name:Andrzej Sue Payer ID:[id number] (NAIC) Type:Not on file Address: [facility] [id number] [place] [id number] Care Teams Biometrics Analyst Relationship Specialty Start Date End Date Romel Souza MD PCP - General Family Medicine 06/22/19
[2025-04-22 10:58] LABS: Anion Gap 11.7 mEq/L (5-15); Blood Urea Nitrogen 33 mg/dl (9-20); Calcium 8.9 mg/dl (8.4-10.2); Carbon Dioxide 20 mmol/L (22.0-30.0); Chloride 107 mmol/L (98-107); Creatinine,Serum 1.80 mg/dl (0.66-1.25); Estimated Glomerular Filt Rate 38 ml/min (>60); GFR (African American) 46 ML/MIN (>60); Glucose 100 mg/dl (74-100); Potassium 3.7 mmoL/L (3.5-5.1); Sodium 135 mmol/L (136-145)
== END 2025-04-22 23:59 | disposition home or self-care (01) ==
LOC: LAB 07:48
PROVIDERS: PCP Nurse Practitioner Family; Visit Provider Nurse Practitioner Family
DX: N18.31 Chronic kidney disease, stage 3a (principal)
CPT/HCPCS: 36415; 80048

== ENCOUNTER 2025-05-10 15:33 | Outpatient (CLI) | payer MEDICARE, SELFPAY ==
[2025-05-10 16:59] LABS: Coronavirus 19, PCR Not Detected (NotDetected); Influenza A, PCR Not Detected (NotDetected); Influenza B, PCR Not Detected (NotDetected)
--- OUTSIDE RECORDS SUMMARY | 2025-05-11 12:07 | XMS_ITS | Clinical Summary ---
Author Organization [facility] Address [address] [place] [address] Care Team Providers Care Family Support Specialist Name Role Phone Romel Souza MD Primary [...] 12/23/2024 COVID-19 Vaccine ( season) 2025 [facility] Sub[facility] Plan / Payer (Ef fective 2017-Present) Name:Andrzej Sue Relation to Subscriber:Self Name:Andrzej Sue Payer ID:[id number] (NAIC) Type:Not on file Address: [facility] [address] [place] [id number] Care Teams Family Support Specialist Relationship Specialty Start Date End Date Romel Souza MD PCP - General Family Medicine 06/22/19
--- OUTSIDE RECORDS SUMMARY | 2025-05-11 12:07 | XMS_ITS | Clinical Summary ---
Author Organization [facility] Address [address] [place] [address] Care Team Providers Care Force Variation Equipment Tender Name Role Phone Romel Souza MD Primary Care Provider [phone] Allergies No known active allergies Medications Jardiance [...] Screening 1955 [place]-[facility] Annual Wellness (AWV) 1955 [facility]-/Child/Adol SDOH Screenings 1955 [facility]- SDOH Screenings 09/27/1975 [facility]-Adult SDOH Screenings 09/27/1975 CT Colonography 2002 Colonoscopy 2002 FIT-DNA 2002 FIT 2002 FOBT 2002 Sigmoidoscopy 2002 [facility]-Colorectal Cancer Screening 2002 [facility]-Pneumococcal Vaccine: 50+ Years (1 of 1 - PCV) 09/27/2007 [facility]-Zoster Vaccines (1 of 2) 09/27/2007 [id number] Vaccine ( season) 2025 10/28/2021, 04/09/2021, 08/05/2020, Additional history exists [facility]-Influenza Vaccine (#1) 2025 04/06/2024, [facility]-Depression Screening 03/16/2025 03/16/2024 [facility]-RSV Vaccine: 60+ Years or (1 - 1-dose 75+ series) 2032 [facility]-DTaP,Tdap,and Td Vaccines (2 - Td or Tdap) 02/21/2034 02/22/2024 [facility]-Obesity Intervention Completed 024, 04/13/2024, 04/13/2024, Additional history exists HPV Vaccines (No Doses Required) Completed [facility]-HIB Vaccines Aged Out No longer e [...] Progress Patient-Stated? Author OT Goal Occupational Therapy No Brunilda Pritchard Insurance [place] [id number] [address] [place], [place] [id number] [employer] WORK[employer] COMP MEDICARE Care Teams Force Variation Equipment Tender Relationship Specialty Start Date End Date Romel Souza MD [address] [place] [address] PCP - General 10/05/20
== END 2025-05-10 23:59 | disposition home or self-care (01) ==
LOC: LAB.DROPOF 05-11 10:42
PROVIDERS: PCP Nurse Practitioner Family; Visit Provider Nurse Practitioner Family
DX: R50.9 Fever, unspecified (principal)
CPT/HCPCS: 87631